=== PATIENT | female | born 1935 | race Caucasian/White ===

== ENCOUNTER → 2019-07-25 08:15 | Outpatient (BNVA) | payer MEDICARE, OTHER, SELFPAY | PROVIDERS: Family Provider Family Medicine; PCP Family Medicine; Visit Provider Internal Medicine Cardiovascular Disease | DX: E78.2 Mixed hyperlipidemia (principal) | CPT/HCPCS: 80061 ==

== ENCOUNTER → 2021-04-20 09:03 | Outpatient (BNVA) | payer MEDICARE, OTHER, SELFPAY | PROVIDERS: Family Provider Family Medicine; PCP Family Medicine; Visit Provider Internal Medicine Cardiovascular Disease | DX: E78.2 Mixed hyperlipidemia (principal); R06.02 Shortness of breath | CPT/HCPCS: 80048; 80061 ==

== ENCOUNTER → 2021-10-13 11:19 | Outpatient (BNVA) | payer MEDICARE, OTHER, SELFPAY | PROVIDERS: Family Provider Family Medicine; PCP Family Medicine; Visit Provider Internal Medicine Cardiovascular Disease | DX: E78.2 Mixed hyperlipidemia (principal); I65.23 Occlusion and stenosis of bilateral carotid arteries; I73.9 Peripheral vascular disease, unspecified; I10 Essential (primary) hypertension | CPT/HCPCS: 99214 ==

== ENCOUNTER 2021-11-03 09:51 | Outpatient (CLI) | payer MEDICARE, OTHER, SELFPAY ==
--- NOTE | 2021-11-03 10:15 | USCV_ITS ---
Scot Christianne Age: 86 Gender: F : 1935 Exam Date: 11/03/2021 10:54 Ordering Phys: Gabriela Palumbo MD ([email or web address]) Technologist: KARYN Exam Location: [facility] [place] Indication: Leg pain, PVD Risk Factors: Previous Vascular Surgery: RIGHT LEFT BP: 166.0 / 79.00 BP: 158.0/ 73.00 0 0 Waveform Velocity (cm/s) Velocity (cm/s) Waveform Biphasic 96.6 Iliac Prox 101.4 Biphasic Biphasic 66.1 Iliac Mid 102.5 Biphasic Biphasic 72.6 Iliac Distal 102.5 Biphasic Biphasic 87.1 FLUX CORE WELDER 82.7 Biphasic Biphasic 89.7 SFA Prox 92.6 Biphasic Biphasic 94.0 SFA Mid 88.2 Biphasic Biphasic 80.8 SFA Dist 57.8 Biphasic Biphasic 60.5 POP 58.5 Biphasic Biphasic 39.0 AUTOMOTIVE CUSTOMER EXPERIENCE ADVISOR 61.4 Biphasic Biphasic 62.9 DPA 62.1 Biphasic FINDINGS Unable to obtain ABIs due to pt c/o pain. Could not tolerate cuff inflation >180 CONCLUSIONS Features suggestive of extensive arterial sclerosis Could not obtain the ABIs since the patient would not tolerate high cuff pressure Consider TBI to further evaluate for PAD Dr Gabriela Palumbo MD [facility] (Electronically Signed) Final Date: 08 Nov 2021 21:06 S
== END 2021-11-03 09:52 | disposition home or self-care (01) ==
LOC: RAD 09:55
PROVIDERS: PCP Family Medicine; Visit Provider Internal Medicine Cardiovascular Disease
DX: I73.9 Peripheral vascular disease, unspecified (principal)
CPT/HCPCS: 93925

== ENCOUNTER → 2022-04-08 13:01 | Outpatient (BNVA) | payer MEDICARE, OTHER, SELFPAY | PROVIDERS: PCP Family Medicine; Visit Provider Internal Medicine Cardiovascular Disease | DX: I65.23 Occlusion and stenosis of bilateral carotid arteries (principal); R06.02 Shortness of breath; I36.1 Nonrheumatic tricuspid (valve) insufficiency; I35.0 Nonrheumatic aortic (valve) stenosis; I25.10 Atherosclerotic heart disease of native coronary artery without angina pectoris; I10 Essential (primary) hypertension; E78.2 Mixed hyperlipidemia; I48.11 Longstanding persistent atrial fibrillation | CPT/HCPCS: 36415; 80048; 83880; 99214 ==

== ENCOUNTER 2022-06-30 09:39 | Outpatient (CLI) | payer MEDICARE, OTHER, SELFPAY ==
--- NOTE | 2022-06-30 10:00 | USCV_ITS ---
Christianne Ellison Age: 86 Gender: F : 1935 Exam Date: 06/30/2022 09:46 Ordering Phys: Gabriela Palumbo MD ([email or web address]) Technologist: CT Exam Location: [facility] [place] Indication: hx of rt cea Risk Factors: Previous Vascular Surgery: Right Brachial BP: / Left Brachial BP: / Right Left Velocity (cm/s) Spectral Plaque Velocity (cm/s) Spectral Plaque Syst/Diast Broadening Syst/Diast Broadening 77.70/ 17.10 Prox CCA 62.70 / 13.80 52.60/ 18.40 Mid CCA 62.80 / 13.90 57.20/ 16.40 Distal CCA 61.20 / 16.60 160.50/31.80 Prox ICA 186.70/ 34.60 95.20/ 20.90 Mid ICA 86.80 / 17.70 117.60/26.40 Distal ICA 83.00 / 21.30 94.80 ECA 293.20 2.18 ICA/CCA 2.97 Antegrade Vertebral Antegrade 49.40/ 10.20 cm/s 70.90/ 16.20 cm/s Bi Subclavian Bi 105.7 131.3 0 0 FINDINGS Hx of Rt Cea. There is some minimal elevated velocities in Rt Prx Ica as well as left. Some areas in Left Prx Ica unable to doppler due to wll plq shadowing. F/U as indicated. Moderate heterogenous plaques at the right bifurcation and internal carotid artery Moderate to heavy heterogenous irregular plaques of the left bifurcation and proximal internal carotid artery Intimal thickening and minimal plaques involving carotid arteries bilaterally Elevated velocity in the left external carotid artery CONCLUSIONS Moderate heterogenous plaques at the right bifurcation and internal carotid artery with a Doppler features suggesting 50 to 69% stenosis Moderate to heavy heterogenous irregular plaques of the left bifurcation and proximal internal carotid artery with a Doppler features suggesting 50 to 69% stenosis. Intimal thickening and minimal plaques involving carotid arteries bilaterally Elevated velocity in the external carotid artery on the left side, suggesting hemodynamically significant stenosis. Compared to the study from 11/30/2016, there may not be significant change Dr Gabriela Palumbo MD [facility] (Electronically Signed) Final Date: 01 July 2022 16:26 S
== END 2022-06-30 09:40 | disposition home or self-care (01) ==
LOC: RAD 09:40
PROVIDERS: PCP Family Medicine; Visit Provider Internal Medicine Cardiovascular Disease
DX: I65.23 Occlusion and stenosis of bilateral carotid arteries (principal); I77.9 Disorder of arteries and arterioles, unspecified
CPT/HCPCS: 93880

== ENCOUNTER → 2022-10-12 11:17 | Outpatient (BNVA) | payer MEDICARE, OTHER, SELFPAY | PROVIDERS: PCP Family Medicine; Visit Provider Internal Medicine Cardiovascular Disease | DX: I48.11 Longstanding persistent atrial fibrillation (principal); I25.10 Atherosclerotic heart disease of native coronary artery without angina pectoris; I65.23 Occlusion and stenosis of bilateral carotid arteries; I36.1 Nonrheumatic tricuspid (valve) insufficiency; I35.0 Nonrheumatic aortic (valve) stenosis; M79.606 Pain in leg, unspecified; I10 Essential (primary) hypertension; E78.2 Mixed hyperlipidemia; Z95.1 Presence of aortocoronary bypass graft | CPT/HCPCS: 99214 ==

== ENCOUNTER 2022-12-07 14:10 | Outpatient (CLI) | payer MEDICARE, OTHER, SELFPAY ==
--- NOTE | 2022-12-07 14:30 | USCV_ITS ---
Christianne Ellison Age: 87 Gender: F : 1935 Exam Date: 12/07/2022 14:33 Ordering Phys: Gabriela Palumbo MD ([email or web address]) Technologist: [place] [facility] [place]: Aortic stenosis BP: 100 / 60 HR: 61 Rhythm: Sinus Technical Quality: Adequate MEASUREMENTS (Male / Female) Normal Values 2D ECHO LV Diastolic Diameter PLAX 4.1 cm 4.2 - 5.9 / 3.9 - 5.3 cm LV Systolic Diameter PLAX 2.6 cm IVS Diastolic Thickness 0.9 cm 0.6 - 1.0 / 0.6 - 0.9 cm IVS Systolic Thickness 1.8 cm LVPW Diastolic Thickness 1.1 cm 0.6 - 1.0 / 0.6 - 0.9 cm LVPW Systolic Thickness 1.2 cm LVOT Diameter 2.0 cm LV Ejection Fraction 2D Teich 65.8 % LV Ejection Fraction MOD 2C 75.9 % LV Ejection Fraction 2C AL 75.7 % LA Diameter 2.9 cm Aorta at Sinotubular Diameter 1.8 cm IVC Diameter 1.9 cm M-MODE Aortic Annulus Diameter 2.8 cm LA Ao Ratio MM 1.1 DOPPLER AV Peak Velocity 290.0 cm/s LVOT Peak Velocity 90.7 cm/s AV Area Cont Eq vti 1.0 cm squared AV Area Cont Eq pk 1.0 cm squared MV Area PHT 2.1 cm squared Mitral E to A Ratio 0.8 MV E' Velocity 78.0 cm/s Mitral E to MV E' Ratio 22.3 Mitral E to LV E' Lateral Ratio 16.7 Mitral E to LV E' Septal Ratio 33.4 TR Peak Velocity 316.3 cm/s TR Peak Gradient 40.0 mmHg TV Peak E Velocity 125.0 cm/s Right Atrial Pressure 3.0 mmHg Pulmonary Artery Systolic Pressu 43.0 mmHg FINDINGS Left Ventricle Normal left ventricular size, systolic function and increased wall thickness, with no regional wall motion abnormalities. Left ventricular ejection fraction is estimated at 55 %. Abnormal septal motion consistent with conduction abnormality. Grade II diastolic dysfunction, moderately elevated filling pressures. Right Ventricle Normal right ventricular size and systolic function. Right ventricular systolic pressure 43 mmHg. Right Atrium Moderately increased right atrial size. Left Atrium Moderately increased left atrial size. Increased left atrial pressure with septum bulging from left to right. Mitral Valve Severe mitral annular calcification. Moderately thickened mitral valve. Mild mitral valve stenosis with mean gradient of 4 mm Hg. No mitral valve regurgitation. Aortic Valve Thickened and calcified aortic valve. Moderate aortic valve stenosis, peak velocity 2.9 m/s, peak gradient 34 mm Hg, mean gradient 15.1 mmHg, OSMAN 1.1 cm squared. No aortic valve regurgitation. Tricuspid Valve Structurally normal tricuspid valve. No tricuspid valve stenosis. Ivephzhm-sd-fzlkww tricuspid valve regurgitation. Pulmonic Valve Structurally normal pulmonic valve. No pulmonary valve stenosis. Trace pulmonary valve regurgitation. Pericardium No pericardial effusion. Aorta Normal size aortic root and proximal ascending aorta. IVC Normal IVC dimension with >50% respiratory change of the inferior vena cava. CONCLUSIONS 1. Normal left ventricular size, systolic function and increased wall thickness, with no regional wall motion abnormalities. Left ventricular ejection fraction is estimated at 55 %. Grade II diastolic dysfunction, moderately elevated filling pressures. 2. Mild mitral valve stenosis with mean gradient of 4 mm Hg. 3. Moderate aortic valve stenosis, peak velocity 2.9 m/s, peak gradient 34 mm Hg, mean gradient 15.1 mmHg, OSMAN 1.1 cm squared. 4. Jienecod-rc-xosnxt tricuspid valve regurgitation. 5. When compared to study dated 02/06/2019, there is mild MS and moderate now. Kelsey Benitez MD (Electronically Signed) Final Date: 14 December 2022 18:18 S
== END 2022-12-07 14:11 | disposition home or self-care (01) ==
LOC: RAD 14:12
PROVIDERS: PCP Family Medicine; Visit Provider Internal Medicine Cardiovascular Disease
DX: R06.09 Other forms of dyspnea (principal); I05.0 Rheumatic mitral stenosis; I35.0 Nonrheumatic aortic (valve) stenosis; I07.1 Rheumatic tricuspid insufficiency
CPT/HCPCS: 93306; 99214

== ENCOUNTER 2022-12-17 07:29 | Outpatient (CLI) | payer MEDICARE, OTHER, SELFPAY ==
--- NOTE | 2022-12-29 15:57 | OP.DCCON ---
Reason for Visit: 64882 I10 Person Interviewed: Patient Medical History, Labs and Background: Christianne is in independent living and wants to know what she can do better in her diet because she doesn't want to take pills. Height: 5 ft 2 in Weight: 136 lb BMI: 25.8 kg/m2 IBW: 110 lbs Concerns and Goals: Christianne is not as concerned with her weight as she is with eating right - she wants to know what she can do so that she won't have to take pills other than her Vit D/B-6/ Stress B Sleep Hygiene: No issues Physical Activity: Christianne does water aerobics - when it is open and working - 3x/week and chair exercise. Other Feeding Issues: She takes 5 senna+ and prune juice which she said her MD recommended. Sometimes Christianne eats when she is bored. Food Allergies and Sensitivities: NKA Meds, Supplements & Other: Vit D/B-6/ Stress B 24 Hour Recall: Breakfast Time: 5:30-6 Fiber One or Great Grains/skim milk/decaf/coffeemate Snack Time: Lunch Time: noon 2 tacos from [employer], or grilled cheese + tomato + lettuce Snack Time: 2 peppermint patties, zero sugar or sun chips or whole grain club crackers Dinner Time: Cashew Chx plus rice and slaw salad, egg roll, soup Snack Time: Eating Out: She likes to eat out with her son or daughter who live here. Soda vs Milk vs Water: She drinks 2 x 20 ounce water bottles/day and sometimes 1 Sprite, zero calorie Additional Comments: Very pleasant and motivated woman! Recommendations: Assessment: Christianne's and she very much wants to take care of herself and a big part of that is no medicine - she wants to make healthy eating choices so she doesn't need pills, which is commendable and refreshing! No nutrition dx at this time r/t intake domain AEB Pt is barely into overweight and makes good choices and exercises. Intervention: We discussed continuing with water intake and exercise (which would also help with bowel regularity) and talked about smoothies that could mimic a meal if she wanted some variety. I commended her eating at least 3x/day and appropriate/modest snacks. We also discussed other strategies for when she was bored so that she could avoid mindless eating. I ended by praising her for all the healthy habits she has in her life. Monitoring and Evaluation: Christianne has my contact information if she would like to schedule a FU meeting. Coding Level of Care Code Nutrition/Individ/Init 60 min Time Spent (min) 60
== END 2022-12-17 07:30 | disposition home or self-care (01) ==
LOC: DIET 07:30
PROVIDERS: PCP Family Medicine; Visit Provider Family Medicine
DX: Z71.3 Dietary counseling and surveillance (principal); I10 Essential (primary) hypertension; Z68.25 Body mass index [BMI] 25.0-25.9, adult
CPT/HCPCS: 97802

== ENCOUNTER → 2023-05-04 13:15 | Outpatient (BNVA) | payer MEDICARE, OTHER, SELFPAY | PROVIDERS: PCP Family Medicine; Visit Provider Nurse Practitioner Family | DX: I25.10 Atherosclerotic heart disease of native coronary artery without angina pectoris (principal); I10 Essential (primary) hypertension; I35.0 Nonrheumatic aortic (valve) stenosis; I48.11 Longstanding persistent atrial fibrillation; L53.9 Erythematous condition, unspecified; M79.606 Pain in leg, unspecified | CPT/HCPCS: 99214 ==

== ENCOUNTER 2023-05-06 06:17 | Outpatient (CLI) | payer MEDICARE, OTHER, SELFPAY ==
--- NOTE | 2023-05-06 06:45 | USCV_ITS ---
Christianne Ellison Age: 87 Gender: F : 1935 Exam Date: 05/06/2023 06:27 Ordering Phys: Dolores العلي Technologist: Brandt Lopes Exam Location: [facility] [place] Indication: left leg pain PROCEDURES: Venous duplex imaging was performed in only the left lower extremity. The following venous structures were evaluated: common femoral vein, profunda vein, proximal portion of the greater saphenous vein, superficial femoral vein, and the popliteal vein. In addition, the posterior tibial and peroneal trunk were evaluated. Serial compression, augmentation maneuvers, and spectral Doppler flow evaluation were performed. Also scanned lateral left knee due to patient area of concern. FINDINGS: Normal 2-D Doppler and augmentation and compressibility throughout the lower extremity venous structures. Additional imaging through the proximal calf veins also reveals no thrombus. Limited evaluation of the greater saphenous vein is patent with no thrombus. No abnormality visualized in the patient's area of concern. Complex cystic mass with low level echos and no vascularity measuring 2.6x1.3x4.0 cm in the left popliteal fossa. CONCLUSIONS No DVT left lower extremity. Left popliteal fossa Norris's cyst. Dr. Pauly Crain DO (Electronically Signed) Final Date: 06 May 2023 08:12 S
== END 2023-05-06 06:18 | disposition home or self-care (01) ==
LOC: RAD 06:17
PROVIDERS: PCP Family Medicine; Visit Provider Nurse Practitioner Family
DX: M79.605 Pain in left leg (principal); M71.22 Synovial cyst of popliteal space [Baker], left knee
CPT/HCPCS: 93971

== ENCOUNTER → 2023-08-30 07:51 | Outpatient (BNVA) | payer MEDICARE, OTHER, SELFPAY | PROVIDERS: PCP Family Medicine; Visit Provider Nurse Practitioner Family | DX: L57.0 Actinic keratosis (principal); L57.8 Other skin changes due to chronic exposure to nonionizing radiation; L81.4 Other melanin hyperpigmentation | CPT/HCPCS: 17000; 99203 ==

== ENCOUNTER → 2023-10-24 14:06 | Outpatient (BNVA) | payer MEDICARE, OTHER, SELFPAY | PROVIDERS: PCP Family Medicine; Visit Provider Internal Medicine Cardiovascular Disease | DX: I25.10 Atherosclerotic heart disease of native coronary artery without angina pectoris (principal); I48.11 Longstanding persistent atrial fibrillation; Z79.01 Long term (current) use of anticoagulants; I65.23 Occlusion and stenosis of bilateral carotid arteries; I10 Essential (primary) hypertension; I35.0 Nonrheumatic aortic (valve) stenosis | CPT/HCPCS: 99214 ==

== ENCOUNTER 2023-11-02 09:43 | Outpatient (CLI) | payer MEDICARE, OTHER, SELFPAY ==
--- NOTE | 2023-11-02 10:00 | USCV_ITS ---
Scot Christianne Age: 88 Gender: F : 1935 Exam Date: 11/02/2023 09:54 Ordering Phys: Gabriela Palumbo MD ([email or web address]) Technologist: CT Exam Location: [facility] [place] Indication: stenosis Risk Factors: Previous Vascular Surgery: Right Brachial BP: / Left Brachial BP: / Right Left Velocity (cm/s) Spectral Plaque Velocity (cm/s) Spectral Plaque Syst/Diast Broadening Syst/Diast Broadening 75.00/ 18.00 Prox CCA 69.50 / 15.90 55.60/ 16.70 Mid CCA 66.90 / 15.70 63.40/ 16.70 Distal CCA 52.90 / 12.30 69.30/ 8.50 Prox ICA 250.50/ 42.70 142.80/21.40 Mid ICA 97.80 / 12.90 117.20/20.80 Distal ICA 69.50 / 15.00 123.60 ECA 69.30 2.30 ICA/CCA 4.70 Antegrade Vertebral Antegrade 49.20/ 6.50 cm/s 57.80/ 8.60 cm/s Bi Subclavian Bi 120.6 163.1 0 0 FINDINGS Comparison:. 07/01/22 Abnormal waveforms, bilateral, with increasing ICA velocity and irregular plaque. Marked left elevation of systolic velocity but no elevation of diastolic velocity. Antegrade vertebral arteries. CONCLUSIONS Left ICA stenosis 70-99%. Right ICA stenosis < 50%. As there has been a progression of plaque and stenosis since the prior exam recommend CTA carotid arteries. Significant irregular carotid plaque. Dr. Pauly Crain DO (Electronically Signed) Final Date: 02 November 2023 16:35 S
== END 2023-11-02 09:44 | disposition home or self-care (01) ==
LOC: RAD 09:44
PROVIDERS: PCP Family Medicine; Visit Provider Internal Medicine Cardiovascular Disease
DX: I65.23 Occlusion and stenosis of bilateral carotid arteries (principal); I77.9 Disorder of arteries and arterioles, unspecified
CPT/HCPCS: 93880

== ENCOUNTER → 2024-01-09 09:26 | Outpatient (BNVA) | payer MEDICARE, OTHER, SELFPAY | PROVIDERS: PCP Family Medicine; Visit Provider Nurse Practitioner Family | DX: D48.5 Neoplasm of uncertain behavior of skin (principal); L57.0 Actinic keratosis; D18.01 Hemangioma of skin and subcutaneous tissue; L57.8 Other skin changes due to chronic exposure to nonionizing radiation; L81.4 Other melanin hyperpigmentation | CPT/HCPCS: 11102; 17000; 99213 ==

== ENCOUNTER 2024-01-10 06:19 | Emergency (ER) | payer MEDICARE, OTHER, SELFPAY ==
[2024-01-10 06:25] VITALS: BP 179/111; PULSE 68; RESP 16; TEMP 36.6; O2SAT 100; BMI 26.4
[2024-01-10 06:29] VITALS: BP 177/68; PULSE 62; RESP 18; O2SAT 100
--- NOTE | 2024-01-10 06:32 | W.ED.GENADLT ---
HPI - General Adult General: Chief complaint: Extremity Injury, Upper Stated complaint: right arm lac bleeding from derm. appt yesterday Time Seen by Provider: 01/10/24 06:23 Source: patient Mode of arrival: ambulatory History of Present Illness: 88-year-old female who seen dermatology yesterday had a skin lesion removed from her right mid-forearm dorsal surface. She is on Eliquis because of atrial fibrillation has had continuous bleeding overnight. [facility] PFSH: Medical History Tricuspid insufficiency Aortic stenosis with trileaflet valve Carotid stenosis Coronary artery disease Hypertension Hyperlipidemia Atrial fibrillation Anticoagulated with apixaban Surgical History History of carotid endarterectomy Hx of CABG History of knee surgery Family History Mother CAD (coronary artery disease) Diabetes Stroke Brother Cancer Diabetes Other Hypertension Denies family history of Clotting disorder Dementia Chronic kidney disease (CKD) Suicide Anesthesia complication Bleeding disorder Lung disease Social History Smoking and tobacco/nicotine status: never used tobacco/nicotine Alcohol intake: never Substance/Drug Use: never Physical Exam Const: COMMON NORMALS: no acute distress GENERAL APPEARANCE: cooperative and comfortable ORIENTATION/CONSCIOUSNESS: Yes awake, Yes oriented to person, Yes oriented to place and Yes oriented to time HENMT: COMMON NORMALS: normocephalic, atraumatic and hearing grossly normal bilaterally HEAD & SCALP: normocephalic and atraumatic Neuro: SENSORIUM/ORIENTATION: Yes oriented to person, Yes oriented to place and Yes oriented to time Skin: OTHER: Examination of the skin there is a regular defect on the dorsum of the right forearm there is some oozing of blood from the lesion. Course Vital Signs: Vital signs: Vital Signs Temperature 97.8 F 01/10/24 06:25 Pulse Rate 67 01/10/24 08:51 Respiratory Rate 18 01/10/24 06:29 Blood Pressure 178/87 01/10/24 08:51 Pulse Oximetry 94 01/10/24 08:51 Oxygen Delivery Me thod Room Air 01/10/24 06:29 MDM - General Adult Medical Decision Making Bleeding controlled with direct pressure. After about 45 minutes her remove the bandage no active bleeding very scant oozing. Reapplied a pressure dressing not nearly as tight as the initial 1. Will discharge patient home have her hold her Eliquis x 2 days. I did contact Dr. Pereira just to let her know that her patient had been here. She will reach out to the patient. Patient advised to return if has further bleeding. Medical Records I reviewed the patient's medical records. Lab Data I reviewed the patient's lab results. 01/10/24 07:01 Laboratory Results WBC 6.46 10^3/uL (3.29-11.43) 01/10/24 07:01 RBC 3.92 10^6/uL (3.85-5.65) 01/10/24 07:01 Hgb 12.40 g/dL (11.27-16.99) 01/10/24 07:01 Hct 38.6 % (36-47) 01/10/24 07:01 MCV 98.5 fl (85-98) H 01/10/24 07:01 MCH 31.6 pg (27-33) 01/10/24 07:01 MCHC 32.1 g/dL (30-55) 01/10/24 07:01 RDW 12.9 % (12.1-15.1) 01/10/24 07:01 Plt Count 150 10^3/cmm (157-399) L 01/10/24 07:01 MPV 11.0 fL (7.4-10.4) H 01/10/24 07:01 Neut % (Auto) 47.1 % 01/10/24 07:01 Lymph % (Auto) 38.5 % 01/10/24 07:01 Ingham % (Auto) 10.7 % 01/10/24 07:01 Eos % (Auto) 2.6 % 01/10/24 07:01 Baso % (Auto) 0.8 % 01/10/24 07:01 Neut # (Auto) 3.04 10^3/uL (1.8-7.7) 01/10/24 07:01 Lymph # (Auto) 2.5 10^3/uL (0.8-4.8) 01/10/24 07:01 Ingham # (Auto) 0.7 10^3/uL (0.2-0.9) 01/10/24 07:01 Eos # (Auto) 0.2 10^3/uL (0.0-0.8) 01/10/24 07:01 Baso # (Auto) 0.1 10^3/uL (0.0-0.1) 01/10/24 07:01 Nucleated RBC % (auto) 0 % 01/10/24 07:01 Nucleated RBCs # 0.0 /100WBC 01/10/24 07:01 No radiology studies performed this visit Discharge Plan Discharge Patient Disposition: Home Clinical Impression: Medication side effect Atrial fibrillation Qualifiers: Atrial fibrillation type: longstanding persistent Qualified Code(s): I48.11 - Longstanding persistent atrial fibrillation Condition: Stable Prescriptions: New mupirocin 2 % ointment 1 applic topical DAILY Qty: 15 0RF No Action omega-3 fatty acids 1,000 mg capsule 1,000 mg PO DAILY coenzyme Q10 10 mg capsule 10 mg PO DAILY vitamin B complex Tablet 1 tab PO DAILY folic acid 1 mg tablet 1 mg PO DAILY senna 8.6 mg capsule 17.2 mg PO BID PRN nitroglycerin [Nitrostat] 0.4 mg tablet, sublingual 0.4 mg SUBLINGUAL Q5M PRN (Reason: chest pain) Qty: 30 3RF losartan 25 mg tablet 25 mg PO BID Qty: 60 5RF Rx Instructions: If blood pressure is less than 100 systolic hold dose aspirin [Adult Low Dose Aspirin] 81 mg tablet,delayed release (DR/EC) 81 mg PO DAILY Qty: 90 3RF furosemide 20 mg tablet 20 mg PO QAM PRN (Reason: edema) Qty: 90 3RF ezetimibe 10 mg tablet See Rx Instructions .ROUTE .COMPLEX Qty: 90 3RF Dose Instruction: TAKE ONE TABLET BY MOUTH DAILY Rx Instructions: TAKE ONE TABLET BY MOUTH DAILY amiodarone 200 mg tablet See Rx Instructions .ROUTE .COMPLEX Qty: 45 3RF Dose Instruction: TAKE 1/2 TABLET BY MOUTH DAILY Rx Instructions: TAKE 1/2 TABLET BY MOUTH DAILY metoprolol tartrate 25 mg tablet See Rx Instructions .ROUTE .COMPLEX Qty: 90 3RF Dose Instruction: TAKE one half TABLET BY MOUTH TWICE DAILY Rx Instructions: TAKE one half TABLET BY MOUTH TWICE DAILY potassium chloride 20 mEq tablet extended release See Rx Instructions .ROUTE .COMPLEX Qty: 90 3RF Dose Instruction: TAKE ONE TABLET BY MOUTH DAILY Rx Instructions: TAKE ONE TABLET BY MOUTH DAILY spironolactone 25 mg tablet 12.5 mg PO .COMPLEX Qty: 90 3RF Rx Instructions: 12.5 mg orally; rosuvastatin 40 mg tablet See Rx Instructions .ROUTE .COMPLEX Qty: 90 3RF Dose Instruction: TAKE ONE TABLET BY MOUTH EVERY DAY Rx Instructions: TAKE ONE TABLET BY MOUTH EVERY DAY Eliquis 5 mg tablet 5 mg PO BID Qty: 180 3RF Discharge Orders: Discharge ED (Routine); Ordered 01/10/24 Ordered By: Sloan David Referrals: Bryce Merritt MD [Primary Care Provider] - Discharge Diet: Usual diet Discharge Activity: Resume usual activity Patient Instructions: Opioid Safety, Pain Management Activity Restrictions/Additional Instructions: Thank you for choosing [facility] for your healthcare needs today. It is very important that you follow up as instructed or that you return to the Emergency Department should you have concerns or if your condition changes or worsens in any way. You were seen today for bleeding from the biopsy site. Recommend holding Eliquis for the next 2 days continue your aspirin. Resume your Eliquis in 2 days follow-up with dermatology as previously advised. Coding Level of Care Code ED [employer] Routeman for Stephanie Samuel
[2024-01-10 07:11] LABS: Basophils # 0.1 10^3/uL (0.0-0.1); Basophils % 0.8 %; Eosinophils # 0.2 10^3/uL (0.0-0.8); Eosinophils % 2.6 %; Hematocrit 38.6 % (36-47); Lymphocytes # 2.5 10^3/uL (0.8-4.8); Lymphocytes % 38.5 %; Mean Corpuscular HGB Conc 32.1 g/dL (30-55); Mean Corpuscular Hemoglobin 31.6 pg (27-33); Mean Corpuscular Volume 98.5 fl (85-98); Monocytes # 0.7 10^3/uL (0.2-0.9); Monocytes % 10.7 %; Neutrophils # 3.04 10^3/uL (1.8-7.7); Neutrophils % 47.1 %; Nucleated Red Blood Cells % 0 %; Platelet Count 150 10^3/cmm (157-399); Red Blood Count 3.92 10^6/uL (3.85-5.65); Red Cell Distribution Width 12.9 % (12.1-15.1); White Blood Count 6.46 10^3/uL (3.29-11.43)
[2024-01-10 08:51] VITALS: BP 178/87; PULSE 67; O2SAT 94
== END 2024-01-10 08:52 | disposition home or self-care (01) ==
PROVIDERS: Emergency Provider Family Medicine; PCP Family Medicine
DX: L76.21 Postprocedural hemorrhage of skin and subcutaneous tissue following a dermatologic procedure (principal); I48.11 Longstanding persistent atrial fibrillation; I10 Essential (primary) hypertension; I25.10 Atherosclerotic heart disease of native coronary artery without angina pectoris; E78.5 Hyperlipidemia, unspecified; Z95.1 Presence of aortocoronary bypass graft; Z79.01 Long term (current) use of anticoagulants; Z79.82 Long term (current) use of aspirin
CPT/HCPCS: 36415; 85025; 99214; 99283

== ENCOUNTER → 2024-02-01 08:15 | Outpatient (BNVA) | payer MEDICARE, OTHER, SELFPAY | PROVIDERS: PCP Family Medicine; Visit Provider Dermatology | DX: C44.612 Basal cell carcinoma of skin of right upper limb, including shoulder (principal) | CPT/HCPCS: 17262 ==

== ENCOUNTER → 2024-02-09 12:51 | Outpatient (BNVA) | payer MEDICARE, OTHER, SELFPAY | PROVIDERS: PCP Family Medicine; Visit Provider Nurse Practitioner Family | DX: S50.11XA Contusion of right forearm, initial encounter (principal); X58.XXXA Exposure to other specified factors, initial encounter; L57.8 Other skin changes due to chronic exposure to nonionizing radiation; L81.4 Other melanin hyperpigmentation; Z85.828 Personal history of other malignant neoplasm of skin | CPT/HCPCS: 99213 ==

== ENCOUNTER 2024-03-27 07:32 | Outpatient (CLI) | payer MEDICARE, OTHER, SELFPAY ==
--- NOTE | 2024-03-27 08:00 | CT_ITS ---
WS: [id number] CT ANGIOGRAM CAROTID ARTERIES HISTORY: bilat carotid stenosis TECHNIQUE: CT angiogram is performed of the carotid arteries. During arterial injection imaging is ob tained from the skull base to the aortic arch in 1.25 mm imaging. Coronal and sagittal reformats are submitted, MIP imaging also reviewed. Additional multiplanar reformats of the carotid arteries are lakhani bmitted. NASCET criteria utilized. All CT scans at [facility] use at least one of these dose optimization techniques: automated exposure control; mA and/or kV adjustment per patient size (includ es targeted exams where dose is matched to clinical indication); or iterative reconstruction. CONTRAST: Omnipaque 350; 100 mL IV. DLP: 192.92 mGy.cm COMPARISON: 04/18/2017, carotid ultrasound 11/02/2023 Right carotid: Common carotid artery: Arises normally from the innominate artery. Increasing plaque at the bifurcati on. Internal carotid artery: Increasing plaque and intimal thickening at the bifurcation. Mild dilatation of the proximal carotid artery. High-grade stenosis estimated near 60 to 70% at the bifurcation. Mil d progression of stenosis since the prior study. External carotid artery: Occluded with distal reconstitution. Left carotid: Common carotid artery: Arises normally from the aortic arch. No significant stenosis. Internal carotid artery: Large amount of calcified plaque with segmental thickening at the bifurcatio n. There is a very high-grade stenosis greater than 80%. Stenosis has progressed since the prior stud y. External carotid artery: Patent. Right vertebral artery: Patent. Small amount of plaque distally. Left vertebral artery: Patent with a small amount of calcified plaque distally. Arises normally from the left subclavian artery. Subclavian arteries: Mild narrowing origin LEFT subclavian artery. Upper thorax: Emphysema. Esophagus is dilated and fluid-filled. New finding since the prior study. At herosclerosis aorta. Normal size pulmonary artery. Thyroid gland: Small bilateral thyroid nodules. Osseous structures: Mild spondylitic changes in the mid cervical spine. C4 anterolisthesis by 3 mm. Skull base: Negative. CT/CT angio neck 21103 IMPRESSION: 1. LEFT cervical ICA stenosis estimated at 80% with mild progression since the prior study. 2. RIGHT cervical ICA stenosis estimated at 60 to 70% with mild progression si nce the prior study. 3. Known occluded RIGHT ECA. 4. New fluid distended esophagus. May be reflux disease. Consider distal esoph ageal stricture also is a possible etiology.
[2024-03-27 08:21] LABS: Blood Urea Nitrogen 8 mg/dL (8-23)
[2024-03-27] MEDS: iohexol 350 mg/mL 500 mL Btl (per mL) IV (09:10)
== END 2024-03-27 07:33 | disposition home or self-care (01) ==
LOC: RAD 07:32
PROVIDERS: PCP Family Medicine; Visit Provider Internal Medicine Cardiovascular Disease
DX: I65.23 Occlusion and stenosis of bilateral carotid arteries (principal); J43.9 Emphysema, unspecified; I70.0 Atherosclerosis of aorta; E04.2 Nontoxic multinodular goiter
CPT/HCPCS: 70498; 82565; 84520

== ENCOUNTER 2024-03-27 12:24 | Emergency (ER) | payer MEDICARE, OTHER, SELFPAY ==
[2024-03-27 12:32] VITALS: BP 139/57; PULSE 73; RESP 18; TEMP 36.8; O2SAT 98; BMI 26.2
[2024-03-27 12:34] VITALS: BP 169/89; PULSE 63; RESP 16; O2SAT 99
--- NOTE | 2024-03-27 12:54 | ECG_ITS ---
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 Measurements Intervals [place] Rate: 61 P: 59 WA: 171 QRS: 8 QRSD: 152 T: 75 QT: 487 QTc: 491 Interpretive Statements SINUS RHYTHM POSSIBLE LEFT ATRIAL ENLARGEMENT [-0.1mV P-WAVE IN V1/V2] LEFT BUNDLE BRANCH BLOCK [120+ ms QRS DURATION, 80+ ms Q/S IN V1/V2, 85+ ms R IN I/aVL/V5/V6] Compared to ECG 06/19/2018 19:41:36 Sinus bradycardia no longer present Electronically Signed On 03-27-2024 15:26:44 CDT by Tigre Paez M.D. [email or web address]
[2024-03-27 12:57] LABS: Basophils % 0.6 %; Eosinophils # 0.1 10^3/uL (0.0-0.8); Eosinophils % 0.9 %; Hematocrit 33.7 % (36-47); Lymphocytes # 2.1 10^3/uL (0.8-4.8); Lymphocytes % 30.9 %; Mean Corpuscular HGB Conc 33.2 g/dL (30-55); Mean Corpuscular Hemoglobin 31.9 pg (27-33); Mean Platelet Volume 10.1 fL (7.4-10.4); Monocytes # 0.5 10^3/uL (0.2-0.9); Monocytes % 6.8 %; Neutrophils # 4.07 10^3/uL (1.8-7.7); Neutrophils % 60.4 %; Nucleated Red Blood Cells % 0 %; Platelet Count 179 10^3/cmm (157-399); Red Blood Count 3.51 10^6/uL (3.85-5.65); White Blood Count 6.74 10^3/uL (3.29-11.43)
[2024-03-27 13:08] LABS: Erythrocyte Sedimentation Rate 10 mm/hr (0-15)
--- NOTE | 2024-03-27 13:09 | ED_ITS ---
HPI - Recheck/Abnormal Lab/Rx 2 General: Chief Complaint: Recheck/Abnormal Lab/Rx Stated Complaint: abn labs Time Seen by Provider: 03/27/24 12:33 History of Present Illness: 88-year-old woman with a history of almodovar tid stenosis, coronary artery disease, hypertension, hyperlipidemia and atrial fibrillation on Eliquis who presents to the emergency room after she had low blood pressure earlier today. She had a carotid ultrasound earlier in the day and has not heard results from that yet. She has been having issues with her right leg hurting. She is been having pain in her right larson and her knee and up her right lateral thigh. She has been seen multiple times at urgent care with this and has an MRI scheduled to evaluate this further. There is no obvious redness or swelling. No real pain in the joint. I do not suspect a joint infection. No fevers. No cough. No shortness of breath. No chest pain. No abdominal pain. No nausea or vomiting. No dysuria. Related Data Home Medications Medication Instructions Recorded Confirmed coenzyme Q10 10 mg capsule 10 mg PO DAILY 08/22/19 03/27/24 folic acid 1 mg tablet 1 mg PO DAILY 08/22/19 03/27/24 omega-3 fatty acids 1,000 mg 1,000 mg PO DAILY 08/22/19 03/27/24 capsule sennosides 8.6 mg capsule (senna) 17.2 mg PO BID PRN Constipation 08/22/19 03/27/24 vitamin B complex 1 tab PO DAILY 08/22/19 03/27/24 amiodarone 200 mg tablet 100 mg PO DAILY 03/27/24 03/27/24 cholecalciferol (vitamin D3) 50 50 mcg PO DAILY 03/27/24 03/27/24 mcg (2,000 unit) tablet (Vitamin D3) diclofenac sodium 1 % topical gel See Rx Instructions .Route .COMPLEX 03/27/24 03/27/24 ezetimibe 10 mg tablet 10 mg PO DAILY 03/27/24 03/27/24 metoprolol tartrate 25 mg tablet 12.5 mg PO DAILY 03/27/24 03/27/24 potassium chloride 20 mEq 20 meq PO DAILY 03/27/24 03/27/24 tablet,extended release rosuvastatin 40 mg tablet 40 mg PO DAILY 03/27/24 03/27/24 spironolactone 25 mg tablet 12.5 mg PO DAILY 03/27/24 03/27/24 tramadol 50 mg tablet See Rx Instructions .Route .COMPLEX 03/27/24 03/27/24 Previous Rx's Medication Instructions Recorded aspirin 81 mg tablet,delayed 81 mg PO DAILY #90 tabs 10/26/21 release (Adult Low Dose Aspirin) furosemide 20 mg tablet 20 mg PO QAM PRN edema #90 tabs 03/01/23 apixaban 5 mg tablet (Eliquis) 5 mg PO BID #180 tabs 12/09/23 losartan 25 mg tablet 25 mg PO BID #180 tabs 02/08/24 Allergies Allergy/AdvReac Type Severity Reaction Status Date / Time No Known Allergies Allergy Verified 01/10/24 10:36 Review of Systems 2 Narrative: Constitutional symptoms: Negative except as documented in HPI. Skin symptoms: Negative except as documented in HPI. Eye symptoms: Negative except as documented in HPI. ENMT symptoms: Negative except as documented in HPI. Respiratory symptoms: Negative except as documented in HPI. Cardiovascular symptoms: Negative except as documented in HPI. Gastrointestinal symptoms: Negative except as documented in HPI. Genitourinary symptoms: Negative except as documented in HPI. Musculoskeletal symptoms: Negative except as documented in HPI. Neurologic symptoms: Negative except as documented in HPI. Psychiatric symptoms: Negative except as documented in HPI. Endocrine symptoms: Negative except as documented in HPI. PFSH ED 2 PFSH: Medical History (Updated 03/27/24 @ 15:24 by Violeta Vargas MD) Tricuspid insufficiency Aortic stenosis with trileaflet valve Carotid stenosis Coronary artery disease Hypertension Hyperlipidemia Atrial fibrillation Anticoagulated with apixaban Surgical History History of carotid endarterectomy Hx of CABG History of knee surgery Family History Mother CAD (coronary artery disease) Diabetes Stroke Brother Cancer Diabetes Other Hypertension Denies family history of Clotting disorder Dementia Chronic kidney disease (CKD) Suicide Anesthesia complication Bleeding disorder Lung disease Social History Smoking and tobacco/nicotine status: never used tobacco/nicotine Alcohol intake: never Substance/Drug Use: never Physical Exam 2 Narrative: EXAM NARRATIVE: General: Alert, no acute distress. Skin: Warm, dry. Head: Normocephalic, atraumatic. Neck: Supple, trachea midline. Eye: Extraocular movements are intact. Ears, nose, mouth and throat: mucosa moist. Cardiovascular: Regular, Normal peripheral perfusion. Respiratory: Lungs are clear to auscultation, respirations are non-labored, breath sounds are equal, Symmetrical chest wall expansion. Gastrointestinal: Soft, Nontender, Non distended Musculoskeletal: Normal ROM, no deformity. Neurological: Alert and oriented, No focal neurological deficit observed. Psychiatric: Cooperative, appropriate mood & affect. Course 2 Vital Signs: Vital signs: Vital Signs Temperature 98.3 F 03/27/24 12:32 Pulse Rate 63 03/27/24 12:34 Respiratory Rate 16 03/27/24 12:34 Blood Pressure 169/89 03/27/24 12:34 Pulse Oximetry 99 03/27/24 12:34 Oxygen Delivery Me thod Room Air 03/27/24 12:34 MDM - Recheck/Abnormal Lab/Rx Medical Decision Making Medical decision making: Differential diagnosis including but not limited to and based on the above HPI, review of systems and physical exam: Orders placed to evaluate differential diagnosis based on the above differential, HPI and physical exam EKG: Time 1254. Rate 61. Normal sinus rhythm, No ST-T changes, no ectopy, left bundle branch block, This was reviewed and interpreted by myself the ER physician at 1256. No previous EKGs for comparison CTA of the neck done earlier today: 1. LEFT cervical ICA stenosis estimated at 80% with mild progression since the prior study. 2. RIGHT cervical ICA stenosis estimated at 60 to 70% with mild progression since the prior study. 3. Known occluded RIGHT ECA. Lab Review: Laboratory results were reviewed and interpreted by myself the emergency room physician. No leukocytosis. No anemia. ESR and CRP are not elevated which would mean that she does not have any sort of joint infection. No leukocytosis. No renal failure. Blood pressure has been normal here. I reviewed the patient's medical record. Reexamination: Patient remained stable. No increased work of breathing. No altered mental status. No focal motor deficits. Blood pressures remained stable. Globin elevated at discharge. Assessment and plan: Low blood pressure - Discharged home - Discussed findings and plan with patient. Answered any questions. - All laboratory values were reviewed and interpreted personally by myself, the ER physician - All imaging was reviewed and interpreted personally by myself, the ER physician. - Evaluation and treatment of this problem were appropriate in the emergency setting Lab Data 03/27/24 12:51 03/27/24 12:51 Laboratory Results WBC 6.74 10^3/uL (3.29-11.43) 03/27/24 12:51 RBC 3.51 10^6/uL (3.85-5.65) L 03/27/24 12:51 Hgb 11.20 g/dL (11.27-16.99) L 03/27/24 12:51 Hct 33.7 % (36-47) L 03/27/24 12:51 MCV 96.0 fl (85-98) 03/27/24 12:51 MCH 31.9 pg (27-33) 03/27/24 12:51 MCHC 33.2 g/dL (30-55) 03/27/24 12:51 RDW 13.0 % (12.1-15.1) 03/27/24 12:51 Plt Count 179 10^3/cmm (157-399) 03/27/24 12:51 MPV 10.1 fL (7.4-10.4) 03/27/24 12:51 Neut % (Auto) 60.4 % 03/27/24 12:51 Lymph % (Auto) 30.9 % 03/27/24 12:51 Real % (Auto) 6.8 % 03/27/24 12:51 Eos % (Auto) 0.9 % 03/27/24 12:51 Baso % (Auto) 0.6 % 03/27/24 12:51 Neut # (Auto) 4.07 10^3/uL (1.8-7.7) 03/27/24 12:51 Lymph # (Auto) 2.1 10^3/uL (0.8-4.8) 03/27/24 12:51 Real # (Auto) 0.5 10^3/uL (0.2-0.9) 03/27/24 12:51 Eos # (Auto) 0.1 10^3/uL (0.0-0.8) 03/27/24 12:51 Baso # (Auto) 0.0 10^3/uL (0.0-0.1) 03/27/24 12:51 Nucleated RBC % (auto) 0 % 03/27/24 12:51 Nucleated RBCs # 0.0 /100WBC 03/27/24 12:51 ESR 10 mm/hr (0-15) 03/27/24 12:51 Sodium 132 mmol/L (136-145) L 03/27/24 12:51 Potassium 4.6 mmol/L (3.5-5.1) 03/27/24 12:51 Chloride 100 mmol/L (98-107) 03/27/24 12:51 Carbon Dioxide 22 mmol/L (22-29) 03/27/24 12:51 Anion Gap 14.6 (5-19) 03/27/24 12:51 BUN 11 mg/dL (8-23) 03/27/24 12:51 Creatinine 0.9 mg/dL (0.5-0.9) 03/27/24 12:51 GFR Calculation Not Reportable 03/27/24 12:51 Glucose 137 mg/dL (65-115) H 03/27/24 12:51 Calculated Osmolality 276 mOsm/kg (285-295) L 03/27/24 12:51 Calcium 8.8 mg/dL (8.5-10.5) 03/27/24 12:51 Total Bilirubin 0.3 mg/dL (0.15-1.2) 03/27/24 12:51 AST 22 U/L (0-32) 03/27/24 12:51 ALT 13 U/L (0-33) 03/27/24 12:51 Alkaline Phosphatase 43 U/L (35-105) 03/27/24 12:51 C-Reactive Protein 3.0 mg/L (0.0-4.9) 03/27/24 12:51 Total Protein 6.0 g/dL (6.6-8.7) L 03/27/24 12:51 Albumin 3.6 g/dL (3.5-5.2) 03/27/24 12:51 Globulin 2.4 g/dL (1.3-4.6) 03/27/24 12:51 Urine Color Yellow (Yellow) 03/27/24 14:51 Urine Appearance Clear (CLEAR) 03/27/24 14:51 Urine pH 5 (5-7) 03/27/24 14:51 Ur Specific [place] 1.005 (1.005-1.030) 03/27/24 14:51 Urine Protein Neg (Negative) 03/27/24 14:51 Urine Glucose (UA) Norm (Normal) 03/27/24 14:51 Urine Ketones Negative (Negative) 03/27/24 14:51 Urine Blood Neg (Negative) 03/27/24 14:51 Urine Nitrate Negative (Negative) 03/27/24 14:51 Urine Bilirubin Neg (Negative) 03/27/24 14:51 Urine Urobilinogen Norm mg/dL (Negative) 03/27/24 14:51 Ur Leukocyte Esterase Negative (Negative) 03/27/24 14:51 Urine RBC None /hpf (0-2) 03/27/24 14:51 Urine WBC None /hpf (0-5) 03/27/24 14:51 Ur Squamous Epith Cells 0-4 /hpf (0-5) H 03/27/24 14:51 Amorphous Sediment Not Reportable 03/27/24 14:51 Urine Bacteria Trace /hpf (NONE) 03/27/24 14:51 All radiology interpretation(s) finalized by discharge Discharge Plan Discharge Patient Disposition: Home Clinical Impression: Low blood pressure Condition: Stable Prescriptions: No Action omega-3 fatty acids 1,000 mg capsule 1,000 mg PO DAILY coenzyme Q10 10 mg capsule 10 mg PO DAILY vitamin B complex Tablet 1 tab PO DAILY folic acid 1 mg tablet 1 mg PO DAILY senna 8.6 mg capsule 17.2 mg PO BID PRN (Reason: Constipation) aspirin [Adult Low Dose Aspirin] 81 mg tablet,delayed release (DR/EC) 81 mg PO DAILY Qty: 90 3RF furosemide 20 mg tablet 20 mg PO QAM PRN (Reason: edema) Qty: 90 3RF Eliquis 5 mg tablet 5 mg PO BID Qty: 180 3RF losartan 25 mg tablet 25 mg PO BID Qty: 180 3RF Rx Instructions: If blood pressure is less than 100 systolic hold dose tramadol 50 mg tablet See Rx Instructions .ROUTE .COMPLEX Rx Instructions: TAKE 1 TABLET BY MOUTH EVERY 6 HOURS WITH TYLENOL NEEDED. diclofenac sodium 1 % gel See Rx Instructions .ROUTE .COMPLEX Rx Instructions: Apply FOUR grams TO affected area topically FOUR TIMES DAILY as needed. Vitamin D3 50 mcg (2,000 unit) Tablet 50 mcg PO DAILY amiodarone 200 mg tablet 100 mg PO DAILY spironolactone 25 mg tablet 12.5 mg PO DAILY ezetimibe 10 mg tablet 10 mg PO DAILY rosuvastatin 40 mg tablet 40 mg PO DAILY metoprolol tartrate 25 mg tablet 12.5 mg PO DAILY potassium chloride 20 mEq tablet extended release 20 meq PO DAILY Discharge Orders: Discharge ED (Routine); Ordered 03/27/24 Ordered By: Violeta Vargas Referrals: Bryce Merritt MD [Primary Care Provider] - Discharge Diet: Usual diet Discharge Activity: Increase activity as tolerated Patient Instructions: Opioid Safety, Pain Management Activity Restrictions/Additional Instructions: Thank you for choosing [facility] for your healthcare needs today. Please realize this is an emergency room and that we are providing you with a medical screening exam and this may not be complete and all inclusive of all the testing and or work up that you may need to determine your ailment or severity of your illness. You have been screened and evaluated and felt safe for discharge. Health conditions do change or evolve sometimes and as such it is important that you follow up with your Primary Doctor to be re checked, 3-5 days is a general good time frame for follow up. You are always welcome to return to the ED for re assessment if your symptoms are worsening or you have new concerns Coding Level of Care Code ED Timber Incisor Operator for Stephanie Samuel
[2024-03-27 13:18] LABS: Alanine Aminotransferase 13 U/L (0-33); Albumin Level 3.6 g/dL (3.5-5.2); Alkaline Phosphatase 43 U/L (35-105); Anion Gap 14.6 (5-19); Aspartate Amino Transferase 22 U/L (0-32); Blood Urea Nitrogen 11 mg/dL (8-23); Calcium 8.8 mg/dL (8.5-10.5); Carbon Dioxide 22 mmol/L (22-29); Chloride 100 mmol/L (98-107); Creatinine Clr Calc Pharmacy 37.4719; Globulin 2.4 g/dL (1.3-4.6); Glucose 137 mg/dL (65-115); Osmolality Calculated 276 mOsm/kg (285-295); Potassium 4.6 mmol/L (3.5-5.1); Sodium 132 mmol/L (136-145); Total Bilirubin 0.3 mg/dL (0.15-1.2)
--- NOTE | 2024-03-27 14:09 | PC.PHAR ---
Pt brought her med list with her but verified all of them, also.
[2024-03-27 15:12] LABS: Bacteria Urine TRACE /hpf; Bilirubin Urine Neg (Negative); Blood Urine Neg (Negative); Glucose Urine UA Norm (Normal); Ketones Urine Negative (Negative); Leukocyte Esterase Urine Negative (Negative); Nitrate Urine Negative (Negative); Protein Urine Neg (Negative); Specific Gravity, Urine 1.005 (1.005-1.030); Squamous Epithelial Cell Urine 0-4 /hpf (0-5); Urine Appearance Clear (CLEAR); Urine Color Yellow (Yellow); Urobilinogen Urine Norm (Negative); pH Urine 5 (5-7)
[2024-03-27 17:10] VITALS: BP 160/70; PULSE 70; O2SAT 98
== END 2024-03-27 16:33 | disposition home or self-care (01) ==
PROVIDERS: Emergency Provider Emergency Medicine; PCP Family Medicine
DX: I95.9 Hypotension, unspecified (principal); Z79.82 Long term (current) use of aspirin; Z79.01 Long term (current) use of anticoagulants; I44.7 Left bundle-branch block, unspecified; I25.10 Atherosclerotic heart disease of native coronary artery without angina pectoris; I10 Essential (primary) hypertension; E78.5 Hyperlipidemia, unspecified; Z95.1 Presence of aortocoronary bypass graft
CPT/HCPCS: 36415; 80053; 81001; 85025; 85651; 86140; 93005; 99284

== ENCOUNTER 2024-04-02 10:40 | Outpatient (CLI) | payer MEDICARE, OTHER, SELFPAY ==
--- NOTE | 2024-04-02 10:42 | MR_ITS ---
WS: [id number] MRI RIGHT KNEE HISTORY: R KNEE PAIN COMPARISON: Radiograph 02/27/2024 Anterior cruciate ligament: Increased heterogeneous signal throughout the ACL. There is fluid in the central ACL extending along the length of the ligament. Majority of the ACL is intact. A small tear r esulting in interstitial fluid is likely. Posterior cruciate ligament: Intact. Complex fluid collection posterior to the PCL measures 8 x 31 x 10 mm. This is probably a small ganglion associated with the PCL. Medial collateral ligament: Fluid on both sides of the MCL but no tear. Posterior lateral corner structures: Fluid and increased signal along the fibular collateral ligament . No definite tear is identified. Medial menisci: Horizontal tear posterior horn medial meniscus with extension to the inferior articul ar surface. Lateral meniscus: No identifiable anterior horn. The anterior horn appears to be extruded from the simone int space. Posterior horn is also partially extruded. Posterior meniscus extends inferior to the join t line. Extensor mechanism: Distal quadriceps tendon and patellar tendons are intact. Fluid and soft tissue: Small suprapatellar joint effusion with loose bodies. There is mild diffuse so ft tissue edema. Moderate size Norris's cyst. Osseous and articular structures: Patellofemoral compartment: Moderate narrowing patellofemoral joint space with loss of cartilage. No marrow edema. Medial compartment: Moderate narrowing the medial compartment. Moderate diffuse chondromalacia. No ma rrow edema. Lateral compartment: Severe narrowing of the lateral compartment with complete loss of cartilage. Mar ginal osteophytes. Significant marrow edema along the lateral tibial plateau. MR/MR knee RT wo con* [id number] IMPRESSION: 1. Severe internal derangement lateral compartment with loss of cartilage, facundo nt space narrowing and extruded meniscus. Both the anterior and posterior horns are extruded from the joint line. 2. Fluid extending along the course of the mid ACL. This can be seen with an i nterstitial tear. Majority of the ACL is intact. 3. Ganglion posterior to the PCL. 4. Horizontal tear posterior horn medial meniscus. 5. Small suprapatellar joint effusion with loose bodies. 6. Moderate-sized Norris's cyst. 7. Moderate patellofemoral joint space narrowing. 8. Moderate narrowing the medial compartment with diffuse chondromalacia.
== END 2024-04-02 10:41 | disposition home or self-care (01) ==
LOC: RAD 10:41
PROVIDERS: PCP Family Medicine; Visit Provider Nurse Practitioner Family
DX: M23.211 Derangement of anterior horn of medial meniscus due to old tear or injury, right knee (principal); M23.221 Derangement of posterior horn of medial meniscus due to old tear or injury, right knee; S83.511A Sprain of anterior cruciate ligament of right knee, initial encounter; X58.XXXA Exposure to other specified factors, initial encounter; M67.461 Ganglion, right knee; M71.21 Synovial cyst of popliteal space [Baker], right knee; M22.2X1 Patellofemoral disorders, right knee; M94.261 Chondromalacia, right knee
CPT/HCPCS: 73721

== ENCOUNTER → 2024-04-11 14:51 | Outpatient (BNVA) | payer MEDICARE, OTHER, SELFPAY | PROVIDERS: PCP Family Medicine; Visit Provider Specialist | DX: M17.11 Unilateral primary osteoarthritis, right knee (principal) | CPT/HCPCS: 73560; 73565; 99204 ==

== ENCOUNTER → 2024-04-24 15:25 | Outpatient (BNVA) | payer MEDICARE, OTHER, SELFPAY | PROVIDERS: PCP Family Medicine; Visit Provider Internal Medicine Cardiovascular Disease | DX: R06.02 Shortness of breath (principal) | CPT/HCPCS: 36415; 80048; 83880; 99214 ==

== ENCOUNTER → 2024-05-03 13:06 | Outpatient (BNVA) | payer MEDICARE, OTHER, SELFPAY | PROVIDERS: PCP Family Medicine; Visit Provider Nurse Practitioner Family | DX: L57.8 Other skin changes due to chronic exposure to nonionizing radiation (principal); L81.4 Other melanin hyperpigmentation; D18.01 Hemangioma of skin and subcutaneous tissue; Z85.828 Personal history of other malignant neoplasm of skin | CPT/HCPCS: 99213 ==

== ENCOUNTER 2024-05-21 11:45 | Outpatient (CLI) | payer MEDICARE, OTHER, SELFPAY ==
--- NOTE | 2024-05-21 12:00 | USCV_ITS ---
Christianne Ellison Age: 88 Gender: F : 1935 Exam Date: 05/21/2024 11:56 Ordering Phys: Gabriela Palumbo MD ([email or web address]) Technologist: CT Exam Location: [facility] [place] Indication: chf BP: 112 / 50 HR: 62 Rhythm: Sinus Technical Quality: Adequate MEASUREMENTS (Male / Female) Normal Values 2D ECHO LVOT Diameter 2.0 cm LV Ejection Fraction MOD 4C 57.6 % LV Ejection Fraction MOD 2C 51.0 % LV Ejection Fraction 2C AL 54.2 % LA Diameter 4.3 cm RA Systolic Volume 4C AL 51.5 ml RA Systolic Volume 4C MOD 51.1 ml LA Sys Volume AL 73.3 cm cubed LA Sys Volume Index AL 44.8 cm cubed/m squared Aorta at Sinotubular Diameter 1.9 cm IVC Diameter 1.4 cm M-MODE LA Ao Ratio MM 2.3 AV Cusp Separation MM 0.9 cm DOPPLER AV Peak Velocity 323.0 cm/s LVOT Peak Velocity 87.0 cm/s AV Area Cont Eq vti 1.0 cm squared AV Area Cont Eq pk 0.9 cm squared MV Peak Velocity 154.0 cm/s MV Area PHT 2.7 cm squared Mitral E to A Ratio 0.9 TR Peak Velocity 296.0 cm/s TR Peak Gradient 35.0 mmHg TR Mean Velocity 189.0 cm/s TR Mean Gradient 16.6 mmHg TR Velocity Time Integral 73.7 cm TV Peak E Velocity 95.0 cm/s Right Atrial Pressure 3.0 mmHg Pulmonary Artery Systolic Pressu 38.0 mmHg PV Peak Velocity 104.0 cm/s FINDINGS Left Ventricle Normal LV size with an ejection fraction of 55%. Relative hypokinesia of the septum and the anteroseptal segments.abnormal septal motion consistent with conduction abnormality. Moderate left ventricular hypertrophy. Grade I/IV diastolic dysfunction (abnormal relaxation filling pattern), normal to mildly elevated filling pressures. Right Ventricle Normal right ventricular size and systolic function. Right Atrium Mildly increased right atrial size. Left Atrium severely increased left atrial volume 45 ml/m squared. Mitral Valve Moderate mitral annular calcification. Aortic Valve Moderately severe aortic valve stenosis, mean gradient 20.9 mmHg, OSMAN 0.99 cm squared. Peak velocity of 3.23 m/s. Peak gradient of 42 and a mean gradient of 21 mmHg. Tricuspid Valve Moderate tricuspid valve regurgitation. Estimated pulmonary artery peak systolic pressure 38 mmHg Pulmonic Valve No gross abnormalities noted Pericardium No pericardial effusion. Aorta Normal aortic annulus size. IVC Normal inferior vena cava. CONCLUSIONS Normal LV size with an ejection fraction of 55%. Abnormal septal motion consistent with conduction abnormality. Moderate left ventricular hypertrophy. Grade I/IV diastolic dysfunction (abnormal relaxation filling pattern), normal to mildly elevated filling pressures. Mildly increased right atrial size. Severely increased left atrial volume 45 ml/m squared. Moderate mitral annular calcification. Moderately severe aortic valve stenosis, mean gradient 20.9 mmHg, OSMAN 0.99 cm squared. Peak velocity of 3.23 m/s. Peak gradient of 42 and a mean gradient of 21 mmHg. Moderate tricuspid valve regurgitation. Estimated pulmonary artery peak systolic pressure 38 mmHg. There is no pericardial effusion. There are no intracardiac masses. Compared to the study from 12/07/2022 there is slight worsening of the aortic valve stenosis Dr Gabriela Palumbo MD FAC (Electronically Signed) Final Date: 22 May 2024 08:36 S
== END 2024-05-21 11:46 | disposition home or self-care (01) ==
LOC: RAD 11:45
PROVIDERS: PCP Family Medicine; Visit Provider Internal Medicine Cardiovascular Disease
DX: I35.2 Nonrheumatic aortic (valve) stenosis with insufficiency (principal); I51.0 Cardiac septal defect, acquired; I50.30 Unspecified diastolic (congestive) heart failure; I34.81 Nonrheumatic mitral (valve) annulus calcification; I36.1 Nonrheumatic tricuspid (valve) insufficiency; M17.0 Bilateral primary osteoarthritis of knee; R06.09 Other forms of dyspnea; M25.762 Osteophyte, left knee
CPT/HCPCS: 73560; 73565; 93306

== ENCOUNTER → 2024-06-15 10:22 | Outpatient (BNVA) | payer MEDICARE, OTHER, SELFPAY | PROVIDERS: PCP Family Medicine; Visit Provider Specialist | DX: M17.0 Bilateral primary osteoarthritis of knee; Z71.89 Other specified counseling | CPT/HCPCS: 20610; J1100; J2795; J3301 ==

== ENCOUNTER → 2024-07-18 10:08 | Outpatient (BNVA) | payer MEDICARE, OTHER, SELFPAY | PROVIDERS: PCP Family Medicine; Visit Provider Nurse Practitioner Family | DX: L57.8 Other skin changes due to chronic exposure to nonionizing radiation (principal); L81.4 Other melanin hyperpigmentation; D18.01 Hemangioma of skin and subcutaneous tissue; Z08 Encounter for follow-up examination after completed treatment for malignant neoplasm; Z85.828 Personal history of other malignant neoplasm of skin | CPT/HCPCS: 17000; 99213 ==

== ENCOUNTER → 2024-07-23 10:30 | Outpatient (BNVA) | payer MEDICARE, OTHER, SELFPAY | PROVIDERS: PCP Family Medicine; Visit Provider Nurse Practitioner Family | DX: I25.10 Atherosclerotic heart disease of native coronary artery without angina pectoris (principal); I48.11 Longstanding persistent atrial fibrillation; R06.02 Shortness of breath; I65.23 Occlusion and stenosis of bilateral carotid arteries; I35.0 Nonrheumatic aortic (valve) stenosis; E78.2 Mixed hyperlipidemia; I10 Essential (primary) hypertension; I95.9 Hypotension, unspecified; Z79.01 Long term (current) use of anticoagulants; Z79.82 Long term (current) use of aspirin | CPT/HCPCS: 99213 ==

== ENCOUNTER → 2024-09-21 10:22 | Outpatient (BNVA) | payer MEDICARE, OTHER, SELFPAY | PROVIDERS: PCP Family Medicine; Visit Provider Specialist | DX: M17.0 Bilateral primary osteoarthritis of knee (principal); Z71.89 Other specified counseling | CPT/HCPCS: 20610; J1100; J2795; J3301; J9999 ==

== ENCOUNTER → 2024-11-15 11:28 | Outpatient (BNVA) | payer MEDICARE, OTHER, SELFPAY | PROVIDERS: PCP Family Medicine; Visit Provider Internal Medicine Cardiovascular Disease | DX: I25.10 Atherosclerotic heart disease of native coronary artery without angina pectoris (principal); I48.11 Longstanding persistent atrial fibrillation; Z79.01 Long term (current) use of anticoagulants; Z79.82 Long term (current) use of aspirin; I65.23 Occlusion and stenosis of bilateral carotid arteries; I35.0 Nonrheumatic aortic (valve) stenosis; E78.2 Mixed hyperlipidemia; I10 Essential (primary) hypertension; R06.02 Shortness of breath; Z95.1 Presence of aortocoronary bypass graft | CPT/HCPCS: 99214 ==

== ENCOUNTER → 2024-12-04 13:55 | Outpatient (BNVA) | payer MEDICARE, OTHER, SELFPAY | PROVIDERS: PCP Family Medicine; Visit Provider Student in an Organized Health Care Education/Training Program | DX: M25.561 Pain in right knee (principal); M25.562 Pain in left knee; M17.0 Bilateral primary osteoarthritis of knee | CPT/HCPCS: 73560; 73565 ==

== ENCOUNTER 2024-12-04 14:53 | Outpatient (CLI) | payer MEDICARE, OTHER, SELFPAY | END 2024-12-04 14:54 | disposition home or self-care (01) | LOC: SPT 14:54 | PROVIDERS: PCP Family Medicine; Visit Provider Student in an Organized Health Care Education/Training Program | DX: Z46.89 Encounter for fitting and adjustment of other specified devices (principal); M17.0 Bilateral primary osteoarthritis of knee | CPT/HCPCS: L1851 ==

== ENCOUNTER → 2024-12-28 10:26 | Outpatient (BNVA) | payer MEDICARE, OTHER, SELFPAY | PROVIDERS: PCP Family Medicine; Visit Provider Specialist | DX: M17.0 Bilateral primary osteoarthritis of knee (principal) | CPT/HCPCS: 20610; J1100; J2795; J3301; J9999 ==

== ENCOUNTER → 2025-01-16 13:31 | Outpatient (BNVA) | payer MEDICARE, OTHER, SELFPAY | PROVIDERS: PCP Family Medicine; Visit Provider Nurse Practitioner Family | DX: L81.4 Other melanin hyperpigmentation (principal); L57.8 Other skin changes due to chronic exposure to nonionizing radiation; D22.39 Melanocytic nevi of other parts of face; L82.1 Other seborrheic keratosis; Z08 Encounter for follow-up examination after completed treatment for malignant neoplasm; Z85.828 Personal history of other malignant neoplasm of skin; L57.0 Actinic keratosis | CPT/HCPCS: 17000; 99213 ==

== ENCOUNTER 2025-01-28 20:29 | Emergency (ER) | payer MEDICARE, OTHER, SELFPAY ==
[2025-01-28 20:36] VITALS: BP 195/72; PULSE 61; RESP 16; TEMP 36.5; O2SAT 98; BMI 24.5
--- OUTSIDE RECORDS SUMMARY | 2025-01-28 20:39 | XMS_ITS | Encounter Summary ---
Author Organization [facility] Address [address] [place] [address] Care Team Providers Care Asw/Asuw Tactical Air Controller Name Role Phone Unavailable Primary Care Provider Unavailabl e Encounter Details Date Type Department Care Team (Latest Contact Info) Description 10/17/2000 Outpatient Historical [facility] Stanislav Simon MD NO ADDRESS ON FILE Other symptoms involving digestive system(787.99) (Primary Dx); Rectal/anal hemorrhage Social History Tobacco Use Types Packs/Day Years Used Date Smoking Tobacco: Never Assessed Comments Unknown Sex and Gender Information Value Date Recorded Sex Assigned at Not on file 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
--- OUTSIDE RECORDS SUMMARY | 2025-01-28 20:39 | XMS_ITS | Clinical Summary ---
Author Organization [facility] Address [address] 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
--- OUTSIDE RECORDS SUMMARY | 2025-01-28 20:39 | XMS_ITS | Data Portability ---
Author Organization [facility] Driss Garcia [facility] Address [address] [address] Care Team Providers Care Video Games Mechanic Name Role Phone KALEB MERRITT Primary Care Provider [phone] Assessment No assessment recorded. Plan of Treatment Reminders Order Date Submit Date Provider Last Modified By Organization Details Last Modified Time Details Appointments RECHECK 15 2024 02:15P Yakov Merritt MD Not available Not available Not available Lab urinalysi s, dipstick 2024 025 [facility] ([facility]), [address] [place] [address], [address], 12/12/2024 10:32:11 culture, urine 2024 025 [facility], [address] [place] [address], [address], [place], [address], 12/04/2024 09:13:25 urinalysi s, dipstick [address] ([facility]), [address] [place], [address], 12/01/2024 18:48:05 culture, urine 2024 025 [facility], [address] [place] [address], [address], [place], [address], 11/23/2024 12:32:22 urinalysi s, dipstick 2024 [facility] ([facility]), [address] [place], [address], 11/21/2024 09:56:17 Referral None recorded. Procedures None recorded. Surgeries None recorded. Imaging None recorded. Medication Orders Cipro 250 mg tablet 2024 [id number], [address], [place], [id number], 12/12/2024 10:27:46 nitrofura ntoin monohydra te/macroc rystals 100 mg capsule 2024 [facility] [place], [address] [place], [address], 11/30/2024 18:16:59 Patient TargetsNo targets recorded. Patient InstructionsNo instructions recorded. Reason for Referral None Reported. Results Created Date Observation Date Name Description Value Unit Range Abnormal Flag Note LastModifiedBy Organization Detail LastModifiedTime 12/05/1912/04/2024 CULTU RE, URINE , ROUTI NE culture, urine, routine SEE NOTE abnormal CULTU RE, URINE , ROUTI NE Micro Numbe r: [id number] Test Statu s: Final Speci men Sourc e: Not given Speci men Quali ty: Adequ ate Resul t: Great er than 100,0 00 CFU/m L of Esche gurwinder a coli Comme nt: No colle ction date was provi ded. The speci men is gener ally defin ed as stabl e up to 48 hours . The resul t(s) need( s) to be inter prete d cauti ously . Clini copat holog ic corre latio n is requi red. Repea t testi ng is recom fallon d as clini shelly indic ated. Custo giacomo Servi ce is avail able with quest ions or comme nts based on your area of inter est: [phone] ONEIDA T ([phone]) E.col i ----- ----- ----- - INT TRACY AMOX/ CLAVU LANAT E S 4 AMP/S ULBAC WEBB S <=2 CEFAZ MITESH NR <=4 2 CEFEP ROGER S <=0.1 2 CEFTA ZIDIM E S <=1 CEFTR IAXON E S <=0.2 5 CIPRO FLOXA IDALMIS S <=0.0 6 GENTA MICIN S <=1 IMIPE NEM S <=0.2 5 LEVOF LOXAC IN S <=0.1 2 MEROP ENEM S <=0.2 5 NITRO FURAN TOIN S <=16 PIP/T AZOBA CTAM S <=4 TRIME THOPR IM/GALAVIZ LFA S <=20 S = Susce ptibl e I = Inter media te R = Resis tant NS = Not susce ptibl e SDD = Susce ptibl e Dose Depen dent * = Not Teste d NR = Not Repor gaby NN = See Thera py Comme nts THERA PY COMME NTS Note 1: For infec tions other than uncom plica gaby UTI cause d by E. coli, K. pneum oniae or P. mirab ilis: Cefaz mitesh is resis tant if TRACY > or = 8 mcg/m L. (Dist ingui shing susce ptibl e versu s inter media te for isola adalberto with TRACY < or = 4 mcg/m L requi res addit ional testi ng.) Note 2: For uncom plica gaby UTI cause d by E. coli, K. pneum oniae or P. mirab ilis: Cefaz mitesh is susce ptibl e if TRACY <32 mcg/m L and predi cts susce ptibl e to the oral agent s cefac kenn, cefdi darnell, cefpo doxim e, cefpr ozil, cefur oxime , cepha lexin and lorac arbef . NO COLLE CTION DATE RECEI HERNANDEZ. WE HAVE USED THE DATE THE SPECI MEN WAS RECEI HERNANDEZ BY THIS LABOR ATORY THE COLLE CTION DATE. IF THIS IS INCOR RECT, PLEAS E CONTA CT CLIEN T SERVI [place]. PHONE NUMBE R: [phone] Not Available [employer] [facility] [address] [facility] [facility], [place], [address], 12/04/2024 09:13:25 11/22/1911/23/2024 CULTU RE, URINE , ROUTI NE culture, urine, routine SEE NOTE abnormal CULTU RE, URINE , ROUTI NE Micro Numbe r: [id number] Test Statu s: Final Speci men Sourc e: Urine , clean catch Speci men Quali ty: Adequ ate Resul t: Great er than 100,0 00 CFU/m L of Esche gurwinder a coli E.col i ----- ----- ----- - INT TRACY AMOX/ CLAVU LANAT E S 4 AMP/S ULBAC WEBB S <=2 CEFAZ MITESH NR <=4 2 CEFEP ROGER S <=0.1 2 CEFTA ZIDIM E S <=1 CEFTR IAXON E S <=0.2 5 CIPRO FLOXA IDALMIS S <=0.0 6 GENTA MICIN S <=1 IMIPE NEM S <=0.2 5 LEVOF LOXAC IN S <=0.1 2 MEROP ENEM S <=0.2 5 NITRO FURAN TOIN S <=16 PIP/T AZOBA CTAM S <=4 TRIME THOPR IM/GALAVIZ LFA S <=20 S = Susce ptibl e I = Inter media te R = Resis tant NS = Not susce ptibl e SDD = Susce ptibl e Dose Depen dent * = Not Teste d NR = Not Repor gaby NN = See Thera py Comme nts THERA PY COMME NTS Note 1: For infec tions other than uncom plica gaby UTI cause d by E. coli, K. pneum oniae or P. mirab ilis: Cefaz mitesh is resis tant if TRACY > or = 8 mcg/m L. (Dist ingui shing susce ptibl e versu s inter media te for isola adalberto with TRACY < or = 4 mcg/m L requi res addit ional testi ng.) Note 2: For uncom plica gaby UTI cause d by E. coli, K. pneum oniae or P. mirab ilis: Cefaz mitesh is susce ptibl e if TRACY <32 mcg/m L and predi cts susce ptibl e to the oral agent s cefac kenn, cefdi darnell, cefpo doxim e, cefpr ozil, cefur oxime , cepha lexin and lorac arbef . Not Available [employer] [facility] [address] [place], [address], 11/23/2024 12:32:22 11/22/1911/21/2024 urina lysis , dipst ick Leukocytes Large Not Available [facility] ( [facility] [address] [place], [address], 11/21/2024 09:43:27 11/22/1911/21/2024 urina lysis , dipst ick Nitrite negati ve Not Available [facility] ([facility]) [address] [place] [address], [address], 11/21/2024 09:43:27 11/22/19 25 11/21/2024 urina lysis , dipst ick Urobilinogen .2 Not Available [facility] ([facility]) [address] [place], [address], 11/21/2024 09:43:27 11/22/19 25 11/21/2024 urina lysis , dipst ick Protein 100 Not Available [facility] ([facility]) [address] [place], [address], 11/21/2024 09:43:27 11/22/1911/21/2024 urina lysis , dipst ick pH 7.0 Not Available [facility] ([facility]) [address] [place], [address], 11/21/2024 09:43:27 11/22/19 25 11/21/2024 urina lysis , dipst ick Blood Modera te Not Available [facility] ([facility]) [address] [place], [address], 11/21/2024 09:43:27 11/22/1911/21/2024 urina lysis , dipst ick Specific [place] 1.010 Not Available [facility] ( [facility]) [address] [place], [address], 11/21/2024 09:43:27 11/22/1911/21/2024 urina lysis , dipst ick Ketone Negati ve Not Available [facility] ([facility]) [address] [place], [address], 11/21/2024 09:43:27 11/22/19 25 11/21/2024 urina lysis , dipst ick Bilirubin Negati ve Not Available [facility] ([facility]) [address] [place], [address], 11/21/2024 09:43:27 11/22/19 25 11/21/2024 urina lysis , dipst ick Glucose Negati ve Not Available [facility] ([facility]) [address] [place], [address], 11/21/2024 09:43:27 11/22/19 25 11/21/2024 urina lysis , dipst ick Appearance Slight ly Cloudy Not Available [facility] ([facility]) [address] [place], [address], 11/21/2024 09:43:27 11/22/1911/21/2024 urina lysis , dipst ick Color Yellow Not Available [facility] [address] [place], [address], 11/21/2024 09:43:27 12/01/19 25 11/30/2024 urina lysis , dipst ick Leukocytes Large Not Available [facility] ( [facility] [address] [place], [address], 11/30/2024 18:00:38 12/01/19 25 11/30/2024 urina lysis , dipst ick Nitrite negati ve Not Available [facility] ([facility]) [address] [place], [address], 11/30/2024 18:00:38 12/01/19 25 11/30/2024 urina lysis , dipst ick Urobilinogen .2 Not Available [facility] ([facility]) [address] [place], [address], 11/30/2024 18:00:38 12/01/19 25 11/30/2024 urina lysis , dipst ick Protein 300 Not Available [facility] ([facility]) [address] [place], [address], 11/30/2024 18:00:38 12/01/19 25 11/30/2024 urina lysis , dipst ick pH 6.0 Not Available [facility] ([facility]) [address] [place], [address], 11/30/2024 18:00:38 12/01/19 25 11/30/2024 urina lysis , dipst ick Blood Large Not Available [facility] ([facility]) [address] [place], [address], 11/30/2024 18:00:38 12/01/19 25 11/30/2024 urina lysis , dipst ick Specific [place] 1.020 Not Available [facility] ( [facility]) [address] [place], [address], 11/30/2024 18:00:38 12/01/19 25 11/30/2024 urina lysis , dipst ick Ketone Trace Not Available [facility] ([facility]) [address] [place], [address], 11/30/2024 18:00:38 12/01/19 25 11/30/2024 urina lysis , dipst ick Bilirubin Negati ve Not Available [facility] ([facility]) [address] [place], [address], 11/30/2024 18:00:38 12/01/19 25 11/30/2024 urina lysis , dipst ick Glucose Negati ve Not Available [facility] ([facility]) [address] [place], [address], 11/30/2024 18:00:38 12/01/19 25 11/30/2024 urina lysis , dipst ick Appearance Cloudy Not Available [facility] ([facility]) [address] [place], [address], 11/30/2024 18:00:38 12/01/19 25 11/30/2024 urina lysis , dipst ick Color Yellow Not Available [facility] ([facility]) [address] [place], [address], 11/30/2024 18:00:38 12/13/19 25 12/12/2024 urina lysis , dipst ick Leukocytes Negati ve Not Available [facility] ([facility]) [address] [place], [address], 12/12/2024 10:24:42 12/13/19 25 12/12/2024 urina lysis , dipst ick Nitrite negati ve Not Available [facility] ([facility]) [address] [place], [address], 12/12/2024 10:24:42 12/13/19 25 12/12/2024 urina lysis , dipst ick Urobilinogen .2 Not Available [facility] ([facility]) [address] [place], [address], 12/12/2024 10:24:42 12/13/19 25 12/12/2024 urina lysis , dipst ick Protein Negati ve Not Available [facility] ([facility]) [address] [place], [address], 12/12/2024 10:24:42 12/13/19 25 12/12/2024 urina lysis , dipst ick pH 7.0 Not Available [facility] ([facility]) [address] [place], [address], 12/12/2024 10:24:42 12/13/19 25 12/12/2024 urina lysis , dipst ick Blood Negati ve Not Available [facility] ([facility]) [address] [place], [address], 12/12/2024 10:24:42 12/13/19 25 12/12/2024 urina lysis , dipst ick Specific [place] 1.015 Not Available [facility] ( [facility]) [address] [place], [address], 12/12/2024 10:24:42 12/13/19 25 12/12/2024 urina lysis , dipst ick Ketone Negati ve Not Available [facility] ([facility]) [address] [place], [address], 12/12/2024 10:24:42 12/13/19 25 12/12/2024 urina lysis , dipst ick Bilirubin Negati ve Not Available [facility] ([facility]) [address] [place], [address], 12/12/2024 10:24:42 12/13/19 25 12/12/2024 urina lysis , dipst ick Glucose Negati ve Not Available [facility] ([facility]) [address] [place], [address], 12/12/2024 10:24:42 12/13/19 25 12/12/2024 urina lysis , dipst ick Appearance Clear Not Available [facility] ([facility]) [address] [place], [address], 12/12/2024 10:24:42 12/13/19 25 12/12/2024 urina lysis , dipst ick Color Yellow Not Available [facility] ([facility]) [address] [place], [address], 12/12/2024 10:24:42 Result Notes None recorded. Problems Name Problem SNOMED Code Status Onset Date Resolution Date Notes Provider Name and Address Organization Details Recorded Time Hypercholes terolemia 57656867 Active 2022 YAIMA GRACIA [facility] 5 13:02:13 Benign essential hypertensio n 0822180 Active 2022 YAIMA GRACIA [facility] 5 13:02:13 Synovial cyst of left knee 9078969072883 02 Active 2022 YAIMA GRACIA [facility] 5 13:02:13 Essential hypertensio n 73306072 Active 2023 YAIMA GRACIA [facility] 5 13:02:13 Hyperlipide obey 59667528 Active 2023 YAIMA GRACIA [facility] 5 13:02:13 Carotid artery stenosis 30414984 Active 2023 YAIMA GRACIA [facility] 06/25/202 5 13:02:13 Basal cell carcinoma of skin 079698082 Active 2023 YAIMA SAMIA [facility] 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 5 13:02:13 Osteoarthri tis 209646595 Active 2024 [facility] 13:02:13 Problem Notes None recorded. Procedures Surgical History Date Name Laterality Status Provider Name and Address Organization Details Recorded Time 03/15/20 24 Joint Inj Kenalog- Shoulder, Hip, Knee completed Emanuel Marquez MD [address] [place] [address], [address], [facility] 03/16/2024 10:07:44 procedure on heart completed Merlene wyman [facility] 02/23/2024 10:50:51 Knee arthroscopy dx completed Merlene Robledo [facility] 02/23/2024 10:51:17 carotid endarterectomy completed YAIMA GRACIA [facility] 09/12/2024 09:30:34 cataract surgery completed YAIMA SAMIA [facility] 09/12/2024 09:31:23 Imaging Results None recorded. Procedure Notes None recorded. Medical Equipment None Reported. Allergies No known drug allergies Medications Name Sig Start Date Stop Date Status Note LastModified by Organization Details LastModified Time losartan 50 mg tablet TAKE 1 TABLET BY MOUTH DAILY 01/17 completed Not Available Not Available Not Available doxycycli ne hyclate 100 mg capsule take 1 capsule BY MOUTH TWICE DAILY for 10 days 09/11 completed Not Available Not Available Not Available amiodaron e 200 mg tablet TAKE 1/2 TABLET (100mg) BY MOUTH EVERY DAY active Not Available Not Available No t Available prednison e 20 mg tablet Take 2 tablets by mouth daily 02/14 completed Not Available Not Available Not Available ciproflox acin 250 mg tablet TAKE 1 TABLET BY MOUTH EVERY 12 HOURS FOR 7 DAYS 12/12 completed Not Available Not Available Not Available tramadol 50 mg tablet TAKE 1 TABLET BY MOUTH EVERY 6 HOURS WITH TYLENOL NEEDED active Not Available Not Available No t Available spironola ctone 25 mg tablet TAKE 1/2 TABLET (12.5 MG) BY MOUTH EVERY DAY 09/05 completed Not Available Not Available Not Available betametha sone acetate and sodium phos 6 mg/mL suspensio n for injection Take 1 mL every day by injectio n route for 1 day. 09/11 completed Not Available Not Available Not Available potassium chloride ER 20 mEq tablet,ex tended release(p art/cryst ) TAKE ONE TABLET BY MOUTH EVERY DAY 01/02 completed Not Available Not Available Not Available prednisol one acetate 1 % eye drops,qian pension instill 1 drop IN RIGHT EYE FOUR TIMES DAILY for 7 days 11/13 completed Not Available Not Available Not Available oseltamiv ir 75 mg capsule take 1 capsule BY MOUTH TWICE DAILY FOR FIVE DAYS 09/11 completed Not Available Not Available Not Available polymyxin B sulfate 10,000 unit-trim ethoprim 1 mg/mL eye drops STARTING at NOON THE DAY before surgery, ONE drop in right eye EVERY 2 HOURS UNTIL bedtime. USE ONE drop morning of surgery 02/26 completed Not Available Not Available Not Available losartan 25 mg tablet TAKE ONE TABLET BY MOUTH TWICE DAILY if blood pressure is less THAN 100 systolic HOLD dose 09/05 completed Not Available Not Available Not Available dorzolami de 22.3 mg-timolo l 6.8 mg/mL eye drops instill 1 drop into THE right eye FOUR TIMES DAILY FOR SEVEN DAYS 11/13 completed Not Available Not Available Not Available mupirocin 2 % topical ointment APPLY TOPICALL Y EVERY DAY active Not Available Not Available No t Available furosemid e 20 mg tablet TAKE ONE TABLET BY MOUTH EVERY MORNING NEEDED FOR edema active Not Available Not Available No t Available polyethyl subhash glycol 3350 17 gram/dose oral powder mix 17 grams in 8 ounces of liquid AND drink ONCE DAILY NEEDED 05/11 completed Not Available Not Available Not Available albuterol sulfate HFA 90 mcg/actua tion aerosol inhaler INHALE TWO PUFFS BY MOUTH EVERY 4 HOURS NEEDED 02/14 completed Not Available Not Available Not Available Spironola ctone W/Hctz 25 mg-25 mg tablet daily 05/11 completed 0; Recorded 07/27/19 23 12:59PM by Yaima Gracia, Office Visit; Not Available Not Available Not Available ezetimibe 10 mg tablet TAKE ONE TABLET BY MOUTH EVERY DAY active Not Available Not Available No t Available rosuvasta tin 40 mg tablet TAKE ONE TABLET BY MOUTH DAILY active Not Available Not Available No t Available Crestor 20 mg tablet Take 1 tablet every day by oral route. 05/11 completed Not Available Not Available Not Available Senna S 8.6 mg-50 mg tablet QD 2005 active Not Available Not Available Not Avai lable metoprolo l tartrate 25 mg tablet TAKE 1/2 TABLET (12.5mg) BY MOUTH TWICE DAILY active Not Available Not Available No t Available nitrofura ntoin monohydra te/macroc rystals 100 mg capsule Take 1 capsule every 12 hours by oral route for 7 days. 11/30 completed Not Available Not Available Not Available aspirin daily 09/11 completed 0; Recorded 07/27/19 23 12:59PM by Yaima Gracia, Office Visit; Not Available Not Available Not Available Fish Oil two times daily 02/14 completed Recorded 02/09/20 16 9:46AM by Odessa Perea LPN, Office Visit; Not Available Not Available Not Available metoprolo l tartrate two times daily 02/14 completed 0; Recorded 07/27/19 12:59PM by Yaima Gracia, Office Visit; Not Available Not Available Not Available amiodaron e daily 02/14 completed 0; Recorded 07/27/19 12:59PM by Yaima Gracia, Office Visit; Not Available Not Available Not Available furosemid e daily, as needed 02/14 completed 0; Recorded 07/27/19 12:59PM by Yaima Gracia, Office Visit; Not Available Not Available Not Available Vitamin D daily active Not Available Not Khadra ilable Not Available CoQ10 daily active Not Available Not Availa ble Not Available Potassium Chloride ER daily 02/14 completed vo RM/CC; 9; Recorded 11/19/19 4:18PM by Toma Armenta (Authori francine through Kaleb Merritt MD), Office Visit; Refill Quantity : 30; Capsule; Not Available Not Available Not Available Crestor daily 02/14 completed RM/CC; 9; Recorded 11/19/19 4:18PM by Toma Armenta (Jean Claude escamilla through Kaleb Merritt MD), Office Visit; Refill Quantity : 30; Tablet; Not Available Not Available Not Available vitamin B complex chewable tablet daily active Not Available Not Available Not Available diclofena c 1 % topical gel apply FOUR grams TO affected area topicall y FOUR TIMES DAILY active Not Available Not Available No t Available Eliquis 5 mg tablet TAKE 1 TABLET BY MOUTH TWICE DAILY active Not Available Not Available No t Available potassium chloride ER 20 mEq tablet,ex tended release TAKE ONE TABLET BY MOUTH DAILY active Not Available Not Available No t Available Vitals Date Recorded Body height Body mass index (BMI) Body weight Oxygen saturation Oxygen saturation in Arterial blood by Pulse oximetry Heart rate Respiratory rate Body temperature Systolic And Diastolic Provider Name and Address Organization Details Last Updated DateTime 5 154.94 cm 25.3 kg/m2 63299.3 8 g 97 % 97 % 86 /min 16 /min 98.2 [degF] 136/80 mm[Hg] Katelyn Harvey [facility] 5 09:49:50 Date Recorded Body height Body mass index (BMI) Body weight Body temperature Respiratory rate Heart rate Oxygen saturation Oxygen saturation in Arterial blood by Pulse oximetry Systolic And Diastolic Provider Name and Address Organization Details Last Updated DateTime 5 154.94 cm 25.5 kg/m2 25200.9 7 g 98.2 [degF] 17 /min 74 /min 98 % 98 % 108/58 mm[Hg] Wendy Thomas [facility] 5 18:09:52 Date Recorded Body height Body mass index (BMI) Body weight Body temperature Respiratory rate Heart rate Oxygen saturation Oxygen saturation in Arterial blood by Pulse oximetry Systolic And Diastolic Provider Name and Address Organization Details Last Updated DateTime 5 154.94 cm 25.7 kg/m2 13333.5 6 g 97.9 [degF] 16 /min 75 /min 98 % 98 % 110/60 mm[Hg] DANIEL SANTOYO [facility] 5 10:27:05 Date Recorded Body height Body mass index (BMI) Body weight Oxygen saturation Oxygen saturation in Arterial blood by Pulse oximetry Heart rate Systolic And Diastolic Provider Name and Address Organization Details Last Updated DateTime 5 154.94 cm 24.9 kg/m2 98330.1 9 g 98 % 98 % 63 /min 160/70 mm[Hg] [facility] 5 14:23:50 Date Recorded Body height Body mass index (BMI) Body weight Oxygen saturation Oxygen saturation in Arterial blood by Pulse oximetry Heart rate Systolic And Diastolic Provider Name and Address Organization Details Last Updated DateTime 5 154.94 cm 25.5 kg/m2 65988.9 7 g 98 % 98 % 66 /min 168/70 mm[Hg] [facility] 5 16:15:24 Social History Question Answer Notes LastModified by Organizat ion Details LastModified Time Tobacco Smoking Status Never Sm[facility]2023 16:45:44 What Was The Date Of Your Most Recent Tobacco Screening? 11/21/2024 [email or web address] Information not available 11/21/2024 Sex: Unknown Functional Status Question Answer Note LastModified by Organizat ion Details LastModified Time Do you use any illicit or recreational drugs? No [email or web address] Information not available 11/14/2023 What is your level of alcohol consumption? None [email or web address] Information not available 02/14/2023 Mental Status None recorded. Family History Nothing Reported. Medical History Condition Response Coronary Artery Disease N Other N Gout N Kidney Stones N Blood Diseases N Hyperthyroidism N Breast Cancer N Blood Transfusion N Hypothyroidism N Lung Disease N COPD N Depression N Defects or Inherited Disease N Developmental or Behavioral Disorders N Breast Problem N Difficulty Swallowing N Anesthesia Complications N Anxiety Disorder N Meniere's disease N Muscle, Joint, or Bone Problems N Vision or Eye Problems N Arthritis N Polyps N Infertility N Cancer N Varicosities N Stroke N Endometriosis N Bladder or Kidney Problems N High Cholesterol N Liver Disease N Headaches N Fibromyalgia N Kidney Disease N Allergies/Hayfever N Heart Problems N Ear or Hearing Problems N Hospitalizations N Thyroid Problems N GI Problems N ADD/ADHD N Skin Problems N Eating Disorder N Anemia N Constipation N Mental Illness N Ovarian Cancer N Diabetes N Bedwetting N Seizures/Epilepsy N Tuberculosis N Eczema N Diverticulitis N Abuse/Domestic Violence N Asthma N Reflux/GERD N Hepatitis N Heart Disease N Pulmonary Embolism N Chronic Ear Infections N Pre-Eclampsia N Hypertension N Chicken Pox N Autism Spectrum Disorder (ASD) N Osteoporosis N Thrombophilias N Gynecological HistoryNo gynecological history recorded. Obstetrics History GPAL:G 0 P 0 0 0 0 Immunizations Vaccine Type Date Status Note Provider Nam e and Address Organization Details Recorded Time Td (adult), 2 Lf tetanus toxoid, preservative free, adsorbed 6 completed Not Available [facility] 02/05/2023 02:39:27 Influenza, split virus, trivalent, preservative 1 completed Not Available [facility] 02/05/2023 02:39:28 Influenza, split virus, trivalent, preservative 4 completed Not Available [facility] 02/05/2023 02:39:28 Influenza, split virus, trivalent, preservative 3 completed Not Available [facility] 02/05/2023 02:39:29 Influenza, split virus, trivalent, preservative 8 completed Not Available [facility] 02/05/2023 02:39:29 pneumococcal polysaccharide PPV23 8 completed Not Available [facility] 02/05/2023 02:39:29 COVID-19, mRNA, LNP-S, PF, 30 mcg/0.3 mL dose 1 [facility]12[facility] 14:40:05 COVID-19, mRNA, LNP-S, PF, 30 mcg/0.3 mL dose 1 completed [facility] 09/12/2023 14:40:05 COVID-19, mRNA, LNP-S, PF, 30 mcg/0.3 mL dose, lizzie-sucrose 2 completed [facility] 09/12/2023 14:40:05 COVID-19, mRNA, LNP-S, bivalent, PF, 30 mcg/0.3 mL dose 2 completed YAIMA GRACIA [facility] 09/12/2023 14:40:05 Pneumococcal conjugate PCV 13 6 completed YAIMA GRACIA [facility] 09/12/2023 14:40:05 Influenza, high-dose, quadrivalent, PF 3 completed Narcisa Neves [facility] 11/14/2023 10:08:56 COVID-19, mRNA, LNP-S, PF, lizzie-sucrose, 30 mcg/0.3 mL 3 completed [facility] 11/14/2023 10:08:56 RSV, bivalent, protein subunit RSVpreF, diluent reconstituted, 0.5 mL, PF 3 completed YAIMA GRACIA ronda, [facility] 01/18/2024 14:43:52 COVID-19, mRNA, LNP-S, PF, 50 mcg/0.5 mL 4 completed Not Available [facility] 01/16/2025 15:42:04 RSV, bivalent, protein subunit RSVpreF, diluent reconstituted, 0.5 mL, PF 3 completed Not Available [facility] 01/16/2025 15:42:04 zoster recombinant 5 completed Not Available [facility] 01/16/2025 15:42:03 Influenza, adjuvanted, trivalent, PF 4 completed CANDIDA bond, [facility] 04/27/2024 12:43:48 Past Encounters Encounter ID Performer Location Encounter Start Date Encounter Closed Date Diagnosis/Indication Diagnosis SNOMED-CT Code Diagnosis ICD10 Code Diagnosis Note [id number] Kaleb Merritt MD [facility] ([facility]) [address] [place] [address] [phone] 5 02/14/2023 16:24:02 02/14/2023 17:52:12 Benign essential hypertension 7200762 I10 Hypercholesterolemia 136 60095 E78.00 Constipation 87645967 K5 9.00 Impacted cerumen 8779842 6 H61.22 cleansed with peroxide and water and wax removed. [id number] Emanuel Marquez MD [facility] ([facility]) [address] [place] [address] [id number] 5 04/28/2023 10:16:35 04/28/2023 15:24:20 Osteoarthritis of left knee joint 9532826895 75999 M17.12 Likely osteoarthr itis contributi ng to the patient's symptoms. The patient has a significan t history of trauma to this knee with surgery in the past. Dr. Merritt used to do injections , but has been told that they are not likely to be effective at this point. I would agree that actions likely have limited benefit. Start topical diclofenac . Discussed rest, ice, and elevation. Follow-up with PCP if symptoms do not improve. [id number] Kaleb Merritt MD [facility] ([facility]) [address] [place] [address] [id number] 5 05/11/2023 11:33:23 05/11/2023 13:07:06 Osteoarthritis of left knee joint 0243314156 00063 M17.12 Benign ess ential hypertension 5845288 I10 Synovial c yst of left knee 0154279080 13763 M71.22 [id number] ROMI ROSA [facility] ([facility]) [address] [place], [place] [phone] 5 07/27/2023 15:59:46 07/27/2023 18:50:01 Acute upper respiratory infection 90345854 J06.9 Will start doxycyclin e today. Discussed avoiding cough suppressan ts. Recommend a follow up with PCP in 2 weeks. If chest pain or severe SOB occurs, should go to ED. Patient verbalizes understand ing. [id number] PAIGE RIOS [facility] ([facility]) [address] [place], [place] [phone] 07/29/2023 10:45:49 07/29/2023 12:58:58 Dyspnea 671030867 R06.00 [id number] PAIGE CHEEMA [facility] ([facility]) [address] [place], [place] [phone] 08/22/2023 17:43:27 08/22/2023 18:42:36 Lesion of skin of face 1104774422 06 L98.9 Discussed f/u with dermatolog y for further evaluation . Referral sent today. [id number] Kaleb Merritt MD [facility] ([facility]) [address] [place] [address] [id number] 5 09/06/2023 09:35:11 09/07/2023 09:47:57 Benign essential hypertension 6175560 I10 Hypercholesterolemia 136 19115 E78.00 [id number] Kaleb Merritt MD [facility] ([facility]) [address] [place] [address] [id number] 5 09/12/2023 14:12:47 09/12/2023 15:58:12 Essential hypertension 53051240 I10 Hyperlipidemia 09608488 E78.5 [id number] PAIGE CHEEMA [facility] ([facility]) [address] [place] [address] [phone] 5 11/14/2023 10:06:39 11/14/2023 12:59:31 Skin lesion 63522372 L98.9 Keep appt as scheduled with Dr. Pereira, Dermatolog y.It is ok to perform water aerobics. [id number] Kaleb Merritt MD [facility] ([facility]) [address] [place] [address] [phone] 5 01/18/2024 14:43:11 01/18/2024 16:12:54 Benign essential hypertension 9402693 I10 stable at this time. Hyperlipidemia 22146154 E78.5 continue present meds. Carotid ar graham stenosis 21286896 I65.29 >70% blockage on left. She had right CEA in 2005. Planning on angiogram to evaluate further. Basal cell carcinoma of skin 623955561 C44.91 followed by dermatolog y here. [id number] Emanuel Marquez MD [facility] ([facility]) [address] [place] [address] [id number] 5 02/23/2024 10:39:37 02/23/2024 11:35:45 Osteoarthritis of right knee joint 5677582437 53930 M17.11 Likely osteoarthr itis based on exam and history. Start diclofenac gel. Continue range of motion exercises. 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 Recommend the patient undergo physical therapy. The patient was agreeable with this plan. [id number] NATALYA JAUREGUI [employer]USH HEAD [employer] [facility] ([facility]) [address] [place] [address] [id number] 5 02/27/2024 11:28:38 02/27/2024 13:32:05 Pain of right knee joint 3516494113 10151 M25.561 OA noted on xray but nothing acute. Pt trialed voltarin with no relief of symptoms. Now has swelling to right lower leg, continued pain with movement. Discussed with PCP, Dr. Merritt. agree on MRI and f/u with him after.Pt does have some calf pain. Is anticoagul ated due to a-fib. [id number] Emanuel Marquez MD [facility] ([facility]) [address] [place] [address] [phone] 5 03/15/2024 16:51:00 03/17/2024 23:19:19 Osteoarthritis of right knee joint 7872073588 69247 M17.11 The patient continues to have significan t discomfort . The patient has a MRI scheduled in 2 and half weeks. Patient wanted to proceed with injection today. Recommend continuing physical therapy and exercises. Pes anseri nus bursitis 22443448 M70.51 [id number] PAIGE CHEEMA [facility] ([facility]) [address] [place] [address] [id number] 5 04/18/2024 17:17:21 04/18/2024 18:14:05 Edema of lower extremity 784434179 R60.0 Will give pt lasix for next 5 days. Start tomorrow morning. Elevate the legs and continue to wear compressio n socks daily. Keep appt as scheduled next week with cardiology and PCP [id number] Kaleb Merritt MD [facility] ([facility]) [address] [place] [address] [phone] 5 04/27/2024 11:17:55 04/28/2024 09:42:41 Benign essential hypertension 9639673 I10 stable at this time. Hypercholesterolemia 136 98198 E78.00 Hyperlipidemia 90023320 E78.5 continue present meds. Essential hypertension 24344646 I10 Carotid ar graham stenosis 21147299 I65.29 80% blockage on the left. Has an appt coming up with vascular surgeon. Osteoarthr itis of left knee joint 1399946408 52736 M17.12 She is not wanting to have knee surgery. She is getting PT and injections . Osteoarthr itis of right knee joint 8502040834 24539 M17.11 Will order a cane for use for ambulation . Moderate a ortic valve stenosis 314281977 I35.0 followup Echocardio gram is pending. Atrial fibrillation 4943 6004 I48.91 [id number] Kaleb Merritt MD [facility] ([facility]) [address] [place] [address] [id number] 5 2024 11:07:18 2024 15:24:05 Constipation 29007165 K59.00 will try metamucil. Atrial fibrillation 4943 6004 I48.91 Benign ess ential hypertension 3026950 I10 stable at this time. Carotid ar graham stenosis 12911810 I65.29 moderate. Moderate a ortic valve stenosis 442458974 I35.0 Stable. Moderate to severe. Osteoarthritis 355334344 M19.90 Pain of bi lateral knee joints 0429579118 74449 M25.561 M25.793 [id number] PAIGE VILLA [facility] ([facility]) [address] [place] [address] [id number] 5 11/21/2024 09:38:30 11/21/2024 10:09:33 Dysuria 52862836 R30.0 Discussed to take antibiotic as prescribed until completedU rine culture ordered - will notify of any resultsEdu cated patient on increasing PO fluids of water, decreasing caffeine (coffee) and sugary drinks.Dis cussed importance of avoiding baths, scented soaps, douching, perfumes.M ay take OTC AZO for 1-2 days as box directs for burning sensation. Discussed if developmen t of abdominal pain, flank pain, fever, vomiting, worsening symptoms return to walk-in, PCP or ED for re-evaluat ion. Return to clinic if any changes, any worsening, any concernsPa tient verbalized understand ing of plan. [id number] PAIGE CHEEMA [facility] ([facility]) [address] [place] [address] [id number] 5 11/30/2024 17:58:14 12/04/2024 13:24:27 Dysuria 13318043 R30.0 UA results reviewed and discussed with pt. We will start antibiotic s. Pt will increase oral fluids and can use cranberry. Return to office with no improvemen t or any problems. Go to ER with severe worsening or severe problems.W e will obtain urine culture.Re viewed chart and lab results from 11/21 visit [id number] PAIGE CHEEMA [facility] ([facility]) [address] [place] [address] [id number] 5 12/12/2024 10:16:35 12/12/2024 11:04:22 Dysuria 85765601 R30.0 UTI cleared from last infection. Pt has no side effects from cipro. No changes today. [id number] Kaleb Merritt MD [facility] ([facility]) [address] [place] [address] [id number] 5 01/02/2025 14:16:16 01/02/2025 15:23:51 Atrial fibrillation 33056137 I48.91 Eliquis samples given. Benign ess ential hypertension 7354958 I10 stable at this time. Osteoarthritis 427983447 M19.90 bilateral knee pain. Followed by orthopedic s. Excessive cerumen in ear canal 455902052 H61.23 [id number] Kaleb Merritt MD [facility] ([facility]) [address] [place] [address] [id number] 5 01/16/2025 15:41:52 01/17/2025 17:13:55 Benign essential hypertension 0184885 I10 stable at this time. Atrial fibrillation 4943 6004 I48.91 regular rhythm today. Carotid ar graham stenosis 67226885 I65.29 moderate. Moderate a ortic valve stenosis 014235983 I35.0 Stable. Moderate to severe. Health Concerns Section Related Observation LastModified by Organization Detai ls LastModified Time None Recorded Concern Status LastModified by Organization Details LastModified Time None Recorded Advance Directives Directive None Recorded Payers Insurance Date Sequence Insurance Name Policy Number Policy Kaufman Covered Member ID Kaufman Member ID Guarantor Name 09/03/2024 1 MEDICARE [place]: [facility] Christianne Ellison [id number] Christianne Ellison 01/16/2025 2 [facility] RAIL[facility] PLAN D AND F (MEDICARE SUPPLEMENT) [id number] Mrs Micha Connell Scot [id number] Christianne Ellison 01/16/2025 [place] - [place] A - [facility] (MEDICARE) Christianne Ellison [id number] Christianne Ellison 01/16/2025 1 [facility] [facility] BO[facility] (MEDICARE) Christianne Ellison [id number] Christianne Ellison 09/03/2024 MEDICARE [place]: [facility] Christianne Ellison [id number] Christianne Ellison Notes Date Note Type Note Provider Name and Address Organization Details Recorded Time 5 text/html walk in patientpatient is here today for urinary frequency, urinary urgency, and body aches that started 2 days ago. MARIELENA CHANELLE, [facility] [address] [place], [address], [facility], LRossana. 11/21/2024 10:03:22 5 text/html walk in ptPt has burning and urgency for 2 days. Just finished an antibiotic for UTI on . Symptoms were resolved and then returned yesterday. denies fever, back pain, or weakness. is eating/drinking normally. ANTALYA JAUREGUI [facility] [address] [place], [address], [facility], LTanoLMissy. 12/01/2024 18:53:15 5 text/html Patient was recently treated for an UTI. She wants to make sure it has cleared up. She tolerated the cipro well. Completed the course a couple days ago. States she feels fine now. NATALYANILA JAUREGUI [facility] [place], [address], [facility], LTanoLMissy. 12/12/2024 11:03:57 5 text/html HyperlipidemiaReported bypatient.Duration:chronic Control:usually well controlled Adherence to Treatment Plan:takes medications as prescribed Risk Factors:hypertensionHyperte nsion IM/FMReported bypatient.Quality:here for check-up Severity:stage 1 (130-139/80-89 mmHg) Onset/Timing:gradual onset Alleviating Factors:medication Associated Symptoms:no shortness of breath; no palpitations; no chest pain Would like to discuss Eliquis. Kaleb Merritt MD [address] [place], [address], [facility], LTanoLMissy. 01/02/2025 15:02:07 5 text/html Hypertension IM/FMReported bypatient.Quality:here for check-up Severity:normal (<120/<80 mmHg) Onset/Timing:gradual onset Alleviating Factors:medication Associated Symptoms:no shortness of breath; no palpitations; no chest pain Went to Dermatology today and was told to come to her PCP for low BP. Pressure was 110/50 at Derm. Kaleb Merritt MD [address] [place] [address], [phone], [facility], LTanoLMack 01/16/2025 16:54:38 OBGyn Episode No OBEpisode recorded.
--- OUTSIDE RECORDS SUMMARY | 2025-01-28 20:39 | XMS_ITS | Encounter Summary ---
Author Organization [facility] Address [address] Miller: Epic Prelude ADT [place] [address] Care Team Providers Care Recruit Instructor Name Role Phone Unavailable Primary Care Provider Unavailabl e Encounter Details Date Type Department Care Team (Late st Contact Info) Description 10/17/2000 Outpatient Historical Stanislav Simon MD NO ADDRESS ON FILE Social History Tobacco Use Types Packs/Day Years Used Date Smoking Tobacco: Never Assessed Comments Unknown Sex and Gender Information Value Date Recorded Sex Assigned at Not on file Legal Sex Female 5:23 AM LVN Gender Identity Not on file Sexual Orientation Not on file documented as of this encounter Plan of Treatment Not on file documented as of this encounter Visit Diagnoses Not on filedocumented in this encounter
--- NOTE | 2025-01-28 20:51 | ECG_ITS ---
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 Measurements Intervals Pillow Rate: 57 P: 52 IA: 172 QRS: -3 QRSD: 158 T: 55 QT: 474 QTc: 465 Interpretive Statements SINUS BRADYCARDIA POSSIBLE LEFT ATRIAL ENLARGEMENT [-0.1mV P-WAVE IN V1/V2] LEFT BUNDLE BRANCH BLOCK [120+ ms QRS DURATION, 80+ ms Q/S IN V1/V2, 85+ ms R IN I/aVL/V5/V6] Compared to ECG 03/27/2024 12:54:18 Sinus rhythm no longer present Electronically Signed On 01-31-2025 09:05:52 CDT by Tigre Paez M.D. [email or web address]
--- NOTE | 2025-01-28 20:51 | XRR_ITS ---
PROCEDURE INFORMATION: Exam: XR Chest Exam date and time: 01/28/2025 8:57 PM Age: 89 years old Clinical indication: Cough and dyspnea; Prior surgery; Surgery date: 6+ months; Surgery type: Cabg 2017; Additional info: Dyspnea/cough TECHNIQUE: Imaging protocol: Radiologic exam of the chest. Views: 1 view. COMPARISON: CR XR chest 2V* [id number] 01/23/2019 6:25 PM FINDINGS: Lungs: Unremarkable. No consolidation. Pleural spaces: Unremarkable. No pleural effusion. No pneumothorax. Heart/Mediastinum: Unremarkable. No cardiomegaly. Status post CABG Bones/joints: Unremarkable. XR/XR chest 1V portable [id number] IMPRESSION: No acute findings.
--- NOTE | 2025-01-28 20:51 | CTR_ITS ---
PROCEDURE INFORMATION: Exam: CT Head Without Contrast Exam date and time: 01/28/2025 9:34 PM Age: 89 years old Clinical indication: Altered mental status/memory loss; Confusion or disorientation TECHNIQUE: Imaging protocol: Computed tomography of the head without contrast. Radiation optimization: All CT scans at this facility use at least one of these dose optimization techniques: automated exposure control; mA and/or kV adjustment per patient size (includes targeted exams where dose is matched to clinical indication); or iterative reconstruction. COMPARISON: CT angio neck [id number] 03/27/2024 8:23 AM RADIATION DOSE METRICS: Total DLP (mGy-cm): 1022.4 FINDINGS: Brain: No acute intra-axial hemorrhage. No masses. Normal jaquez-white matter differentiation. No midline shift or mass effect. Moderate patchy hypodensity in hemispheric white matter bilaterally most likely due to chronic microangiopathy. There is mild diffuse cerebral atrophy present, consistent with this patient's age. Cerebral ventricles: No ventriculomegaly. Paranasal sinuses: Visualized sinuses are unremarkable. No fluid levels. Mastoid air cells: Visualized mastoid air cells are well aerated. Bones: Unremarkable. No acute fracture. Soft tissues: Unremarkable. CT/CT head wo con* [id number] IMPRESSION: No acute intracranial abnormality.
--- NOTE | 2025-01-28 21:00 | W.ED.WEAKNES ---
HPI - Weakness General: Chief complaint: Weakness Stated complaint: Tired\Confused\BP High\Possible Stroke Time Seen by Provider: 01/28/25 20:47 History of Present Illness: 81-year-old female presents emergency room complaining of fatigue and difficulty with her memory. She has had what she describes many strokes in the past she has a history of atrial fibrillation and she is on Eliquis. She said her last couple weeks she has intermittently had trouble with her memory at various times today she could not remember that her son lives out of [place]. She said she has been very tired last several weeks as well. Blood pressure was elevated earlier today is slightly improved now. She thinks she may have missed part of her dose of metoprolol earlier in the day. On initial arrival here she has no focal neurologic deficits her NIH score on initial exam is 0 Associated symptoms: Denies chest pain, chills, dysuria or fever(s) Related Data Home Medications ?Medication ?Instructions ?Recorded ?Confirmed coenzyme Q10 10 mg capsule 10 mg PO DAILY 08/22/19 02/05/25 folic acid 1 mg tablet 1 mg PO DAILY 08/22/19 02/05/25 omega-3 fatty acids 1,000 mg 1,000 mg PO DAILY 08/22/19 02/05/25 capsule vitamin B complex 1 tab PO DAILY 08/22/19 02/05/25 cholecalciferol (vitamin D3) 50 50 mcg PO DAILY 03/27/24 02/05/25 mcg (2,000 unit) tablet (Vitamin D3) Previous Rx's ?Medication ?Instructions ?Recorded aspirin 81 mg tablet,delayed 81 mg PO DAILY #90 tabs 10/26/21 release (Adult Low Dose Aspirin) apixaban 5 mg tablet (Eliquis) 5 mg PO BID #180 tabs 12/09/23 Rollator walker #1 ea 04/16/24 ezetimibe 10 mg tablet 10 mg PO DAILY #90 tabs 06/06/24 amiodarone 200 mg tablet 100 mg (1/2 x 200 mg) PO DAILY #90 08/09/24 tabs metoprolol tartrate 25 mg tablet 12.5 mg (1/2 x 25 mg) PO BID #90 08/10/24 tabs potassium chloride 20 mEq 20 meq PO DAILY #90 tabs 08/17/24 tablet,extended release rosuvastatin 40 mg tablet 40 mg PO DAILY #90 tabs 10/03/24 left medial news production supervisor brace #1 ea 12/04/24 right lateral news production supervisor brace #1 ea 12/04/24 amlodipine 2.5 mg tablet 2.5 mg PO BID #60 tabs 02/05/25 furosemide 20 mg tablet 20 mg PO QAM PRN edema #90 tabs 02/05/25 Allergies Allergy/AdvReac Type Severity Reaction Status Date / Time No Known Allergies Allergy Verified 02/05/25 13:32 Review of Systems Const: Denies: fever(s) or chills Card: Denies: chest pain Resp: Denies: dyspnea GI: Denies: abdominal pain : Denies: dysuria, urinary frequency or urinary urgency Musc: Denies: neck pain or back pain Skin/Breast: Denies: rash PFSH ED PFSH: Medical History Tricuspid insufficiency Aortic stenosis with trileaflet valve Carotid stenosis Coronary artery disease Hypertension Hyperlipidemia Atrial fibrillation Anticoagulated with apixaban Surgical History History of carotid endarterectomy Hx of CABG History of knee surgery Family History Mother CAD (coronary artery disease) Diabetes Stroke Brother Cancer Diabetes Other Hypertension Denies family history of Clotting disorder Dementia Chronic kidney disease (CKD) Suicide Anesthesia complication Bleeding disorder Lung disease Social History Smoking and tobacco/nicotine status: never used tobacco/nicotine Alcohol intake: never Substance/Drug Use: never Physical Exam Const: GENERAL APPEARANCE: cooperative ORIENTATION/CONSCIOUSNESS: Yes awake, Yes oriented to person, Yes oriented to place and Yes oriented to time HENMT: COMMON NORMALS: normocephalic, atraumatic and hearing grossly normal bilaterally HEAD & SCALP: normocephalic and atraumatic Resp: COMMON NORMALS: normal respiratory effort, No retractions, No use of accessory muscles and clear to auscultation bilaterally AUSCULTATION: clear to auscultation bilaterally Cardio: COMMON NORMALS: regular rate, regular rhythm and No murmurs present (Cardio) RATE: regular rate RHYTHM: regular rhythm GI: COMMON NORMALS: Soft to palpation and No hepatosplenomegaly present AUSCULTATION: Yes normoactive bowel sounds PALPATION: Yes Soft to palpation, No Tenderness to palpation present (GI), No Guarding due to palpation present (GI) and Yes No hepatosplenomegaly present Extremity: COMMON NORMALS: normal to inspection, capillary refill normal, no clubbing, cyanosis or edema, no calf tenderness and no pedal edema Neuro: SENSORIUM/ORIENTATION: Yes oriented to person, Yes oriented to place and Yes oriented to time OTHER: No focal neurologic deficits noted. No lateralizing deficits strength in all extremities normal symmetrical facial movements. Skin: COMMON NORMALS: no rashes or lesions noted GENERAL SKIN EXAM: no rashes or lesions noted Course Vital Signs: Vital signs: Vital Signs Temperature 97.9 F 01/29/25 00:15 Pulse Rate 68 01/29/25 00:15 Respiratory Rate 17 01/29/25 00:15 Blood Pressure 181/83 01/29/25 00:15 Pulse Oximetry 97 01/29/25 00:15 Oxygen Delivery Me thod Room Air 01/28/25 23:30 MDM - Weakness Medical Decision Making Patient has intermittent confusion and memory loss but no signs of stroke. She does not have any lateralizing symptoms. I believe she is experiencing intermittent degrees of cognitive dysfunction. CT of the head is unremarkable. Will discharge patient home and have her follow-up with her primary care doctor. Monitor blood pressure closely. Follow-up with primary care Lab Data 01/28/25 21:16 01/28/25 21:16 Radiology Impressions Chest X-Ray 01/28/25 20:51 IMPRESSION: No acute findings. Head CT 01/28/25 20:51 IMPRESSION: No acute intracranial abnormality. Laboratory Results WBC 7.95 10^3/uL (3.29-11.43) 01/28/25 21:16 RBC 4.18 10^6/uL (3.85-5.65) 01/28/25 21:16 Hgb 12.70 g/dL (11.27-16.99) 01/28/25 21:16 Hct 38.9 % (36-47) 01/28/25 21:16 MCV 93.1 fl (85-98) 01/28/25 21:16 MCH 30.4 pg (27-33) 01/28/25 21:16 MCHC 32.6 g/dL (30-55) 01/28/25 21:16 RDW 15.7 % (12.1-15.1) H 01/28/25 21:16 Plt Count 153 10^3/cmm (157-399) L 01/28/25 21:16 MPV 10.6 fL (7.4-10.4) H 01/28/25 21:16 Neut % (Auto) 47.6 % 01/28/25 21:16 Lymph % (Auto) 37.2 % 01/28/25 21:16 [place] % (Auto) 13.6 % 01/28/25 21:16 Eos % (Auto) 0.8 % 01/28/25 21:16 Baso % (Auto) 0.4 % 01/28/25 21:16 Neut # (Auto) 3.79 10^3/uL (1.8-7.7) 01/28/25 21:16 Lymph # (Auto) 3.0 10^3/uL (0.8-4.8) 01/28/25 21:16 [place] # (Auto) 1.1 10^3/uL (0.2-0.9) H 01/28/25 21:16 Eos # (Auto) 0.1 10^3/uL (0.0-0.8) 01/28/25 21:16 Baso # (Auto) 0.0 10^3/uL (0.0-0.1) 01/28/25 21:16 Nucleated RBC % (auto) 0 % 01/28/25 21:16 Nucleated RBCs # 0.0 /100WBC 01/28/25 21:16 Sodium 133 mmol/L (136-145) L 01/28/25 21:16 Potassium 4.5 mmol/L (3.5-5.1) 01/28/25 21:16 Chloride 99 mmol/L (98-107) 01/28/25 21:16 Carbon Dioxide 20 mmol/L (22-29) L 01/28/25 21:16 Anion Gap 18.5 (5-19) 01/28/25 21:16 BUN 9 mg/dL (8-23) 01/28/25 21:16 Creatinine 0.7 mg/dL (0.5-0.9) 01/28/25 21:16 GFR Calculation Not Reportable 01/28/25 21:16 Glucose 85 mg/dL (65-115) 01/28/25 21:16 Calculated Osmolality 274 mOsm/kg (285-295) L 01/28/25 21:16 Calcium 9.0 mg/dL (8.5-10.5) 01/28/25 21:16 Total Bilirubin 0.4 mg/dL (0.15-1.2) 01/28/25 21:16 AST 42 U/L (0-32) H 01/28/25 21:16 ALT 24 U/L (0-33) 01/28/25 21:16 Alkaline Phosphatase 44 U/L (35-105) 01/28/25 21:16 Troponin T Baseline 17 ng/L (0-10) H 01/28/25 21:16 Troponin T 120 Minute 15.81 ng/L (0-10) H 01/28/25 22:35 Delta Troponin T -1.19 ABS# (0-10) L 01/28/25 22:35 Total Protein 6.0 g/dL (6.6-8.7) L 01/28/25 21:16 Albumin 4.0 g/dL (3.5-5.2) 01/28/25 21:16 Globulin 2.0 g/dL (1.3-4.6) 01/28/25 21:16 All radiology interpretation(s) finalized by discharge Discharge Plan Discharge Patient Disposition: Home Clinical Impression: Aortic stenosis with trileaflet valve Hypertension Qualifiers: Hypertension type: essential hypertension Qualified Code(s): I10 - Essential (primary) hypertension Carotid stenosis Qualifiers: Laterality: bilateral Qualified Code(s): I65.23 - Occlusion and stenosis of bilateral carotid arteries Condition: Stable Prescriptions: No Action omega-3 fatty acids 1,000 mg capsule 1,000 mg PO DAILY coenzyme Q10 10 mg capsule 10 mg PO DAILY vitamin B complex Tablet 1 tab PO DAILY folic acid 1 mg tablet 1 mg PO DAILY (DME) left medial news production supervisor brace See Rx Instructions .Route .MEDSUPPLY Qty: 1 0RF Rx Instructions: As directed (DME) right lateral news production supervisor brace See Rx Instructions .Route .MEDSUPPLY Qty: 1 0RF Rx Instructions: As directed amlodipine 2.5 mg tablet 2.5 mg PO BID Qty: 60 3RF furosemide 20 mg tablet 20 mg PO QAM PRN (Reason: edema) Qty: 90 3RF aspirin [Adult Low Dose Aspirin] 81 mg tablet,delayed release (DR/EC) 81 mg PO DAILY Qty: 90 3RF Eliquis 5 mg tablet 5 mg PO BID Qty: 180 3RF (DME) Mitchell samson See Rx Instructions .Route .MEDSUPPLY Qty: 1 0RF Rx Instructions: Mitchell samson will help with her MRADL ezetimibe 10 mg tablet 10 mg PO DAILY Qty: 90 3RF amiodarone 200 mg tablet 100 mg PO DAILY Qty: 90 3RF metoprolol tartrate 25 mg tablet 12.5 mg PO BID Qty: 90 3RF potassium chloride 20 mEq tablet extended release 20 meq PO DAILY Qty: 90 3RF rosuvastatin 40 mg tablet 40 mg PO DAILY Qty: 90 3RF Vitamin D3 50 mcg (2,000 unit) Tablet 50 mcg PO DAILY Discharge Orders: Discharge ED (Routine); Ordered 01/28/25 Ordered By: Sloan David Referrals: Bryce Merritt MD [Primary Care Provider, Family Practice] Discharge Diet: Usual diet Discharge Activity: Increase activity as tolerated Patient Instructions: Opioid Safety, Pain Management, Patient Portal & [place] Instructions Activity Restrictions/Additional Instructions: Thank you for choosing [facility] for your healthcare needs today. It is very important that you follow up as instructed or that you return to the Emergency Department should you have concerns or if your condition changes or worsens in any way. You are seen in the emergency room with complaints of forgetfulness elevated blood pressure. We evaluated you for possible stroke. Initial score 4 on the stroke score was 0. CT of your head is negative. You are already on a statin and dual anticoagulation. Your blood pressure was somewhat elevated. CT of your head was negative. Blood pressures laying sitting and standing were all stable. Recommend discharge home will have you follow-up with your primary care provider to reevaluate your blood pressure within the next 7 to 10 days. Also set you up for an outpatient MRI of the head. Print Language: Urdu Coding Level of Care Code ED Orthopedic Cast Specialist for Stephanie Samuel
[2025-01-28 21:30] VITALS: BP 165/72; PULSE 57; RESP 16; O2SAT 97
[2025-01-28 21:42] LABS: Troponin(5th) Baseline 17 ng/L (0-10)
[2025-01-28 21:46] LABS: Hematocrit 38.9 % (36-47); Hemoglobin 12.70 g/dL (11.27-16.99); Mean Corpuscular HGB Conc 32.6 g/dL (30-55); Mean Corpuscular Hemoglobin 30.4 pg (27-33); Mean Corpuscular Volume 93.1 fl (85-98); Nucleated Red Blood Cells % 0 %; Platelet Count 153 10^3/cmm (157-399); Red Blood Count 4.18 10^6/uL (3.85-5.65); White Blood Count 7.95 10^3/uL (3.29-11.43)
[2025-01-28 21:47] LABS: Alanine Aminotransferase 24 U/L (0-33); Albumin Level 4.0 g/dL (3.5-5.2); Alkaline Phosphatase 44 U/L (35-105); Blood Urea Nitrogen 9 mg/dL (8-23); Calcium 9.0 mg/dL (8.5-10.5); Carbon Dioxide 20 mmol/L (22-29); Chloride 99 mmol/L (98-107); Creatinine Clr Calc Pharmacy 40.1075; Globulin 2.0 g/dL (1.3-4.6); Glucose 85 mg/dL (65-115); Osmolality Calculated 274 mOsm/kg (285-295); Sodium 133 mmol/L (136-145); Total Protein 6.0 g/dL (6.6-8.7)
[2025-01-28 22:01] LABS: Anion Gap 18.5 (5-19); Aspartate Amino Transferase 42 U/L (0-32); Potassium 4.5 mmol/L (3.5-5.1)
[2025-01-28 22:30] VITALS: BP 155/65; PULSE 77; RESP 18; O2SAT 95
--- NOTE | 2025-01-28 22:51 | ECG_ITS ---
[facility] Date: 2025-[facility]-28 Pat Name: Christianne Ellison Department: Room: Gender: Female Compensation Manager: : 1935 Requested By: Sloan Reed Order Number: [id number] Viktor MD: Harinder Mohan M.D. Measurements Intervals [place] Rate: 62 P: 55 AZ: 179 QRS: -7 QRSD: 163 T: 68 QT: 490 QTc: 501 Interpretive Statements SINUS RHYTHM LEFT ATRIAL ENLARGEMENT [-0.15mV P-WAVE IN V1/V2] LEFT BUNDLE BRANCH BLOCK [120+ ms QRS DURATION, 80+ ms Q/S IN V1/V2, 85+ ms R IN I/aVL/V5/V6] Compared to ECG 01/28/2025 20:44:38 Sinus bradycardia no longer present Electronically Signed On 02-02-2025 14:43:31 CDT by Kimberlee [email or web address]
[2025-01-28 23:11] LABS: Troponin 5 2HR 15.81 ng/L (0-10)
[2025-01-28 23:12] LABS: Troponin 5 2HR Delta -1.19 ABS# (0-10)
--- NOTE | 2025-01-28 23:14 | PC.NURSE ---
Orthostatic Vital Signs are as follows below: Layin/71 HR 63 Sittin/75 HR 65 Standin/81 HR 73 Nurse tech states to RN that pt got dizzy upon standing and had to be guided back to bed
[2025-01-28 23:30] VITALS: BP 194/74; PULSE 67; RESP 17; O2SAT 95
[2025-01-29 00:15] VITALS: BP 181/83; PULSE 68; RESP 17; TEMP 36.6; O2SAT 97
--- NOTE | 2025-02-05 14:41 | PC.SOCIAL ---
Outpatient orders faxed to [facility] scheduling at this time.
== END 2025-01-29 00:15 | disposition home or self-care (01) ==
PROVIDERS: Emergency Provider Family Medicine; PCP Family Medicine
DX: I35.0 Nonrheumatic aortic (valve) stenosis (principal); I35.8 Other nonrheumatic aortic valve disorders; I65.23 Occlusion and stenosis of bilateral carotid arteries; I10 Essential (primary) hypertension; Z79.01 Long term (current) use of anticoagulants; E78.5 Hyperlipidemia, unspecified; I24.0 Acute coronary thrombosis not resulting in myocardial infarction
CPT/HCPCS: 70450; 71045; 80053; 84484; 85025; 93005; 99285; J9999

== ENCOUNTER → 2025-02-05 13:24 | Outpatient (BNVA) | payer MEDICARE, OTHER, SELFPAY | PROVIDERS: PCP Family Medicine; Visit Provider Nurse Practitioner Family | DX: I25.10 Atherosclerotic heart disease of native coronary artery without angina pectoris (principal); I10 Essential (primary) hypertension; I65.29 Occlusion and stenosis of unspecified carotid artery; I35.0 Nonrheumatic aortic (valve) stenosis; I48.11 Longstanding persistent atrial fibrillation; Z79.01 Long term (current) use of anticoagulants; Z79.82 Long term (current) use of aspirin; R06.02 Shortness of breath; E78.5 Hyperlipidemia, unspecified; Z95.1 Presence of aortocoronary bypass graft; Z86.73 Personal history of transient ischemic attack (TIA), and cerebral infarction without residual deficits | CPT/HCPCS: 99213 ==

== ENCOUNTER 2025-02-14 09:14 | Outpatient (CLI) | payer MEDICARE, OTHER, SELFPAY ==
--- NOTE | 2025-02-14 09:19 | MR_ITS ---
WS: [id number] MRI HEAD WITHOUT CONTRAST TECHNIQUE: Sagittal T1, T2 axial, T2 axial FLAIR, axial and coronal T1 images, axial susceptibility weighted imaging, axial diffusion weighted images, and coronal T2 images were obtained. CLINICAL INFORMATION: TIA COMPARISON: CT 01/28/2025 FINDINGS: No evidence of restricted diffusion to suggest acute ischemia. Ventricular system and basal cisterns are patent. Moderate small vessel changes. Moderate parenchymal volume loss. Tiny chronic lacunar infarcts in the periventricular white matter and avila radiata bilaterally. A few associated tiny foci of hemosiderin. Small vessel changes in the kell. Normal vascular flow voids at the skull base. No extra-axial fluid collections. Mild mucosal thickening in the paranasal sinuses. Mastoid air cells are well aerated. Normal posterior nasopharynx Normal optic chiasm and pituitary infundibulum. Moderate symmetric atrophy temporal lobes and hippocampal formations. MR/MR head wo con* [id number] IMPRESSION: 1. No evidence of restricted diffusion to suggest acute ischemia. 2. Moderate small vessel changes with moderate parenchymal volume loss. 3. Several tiny chronic lacunar infarcts in the periventricular white matter a nd avila radiata. A few tiny punctate foci of associated hemosiderin. 4. Small vessel changes in the kell. 5. No other acute findings.
== END 2025-02-14 09:15 | disposition home or self-care (01) ==
PROVIDERS: PCP Family Medicine; Visit Provider Family Medicine
DX: I99.8 Other disorder of circulatory system (principal); G93.9 Disorder of brain, unspecified; I63.81 Other cerebral infarction due to occlusion or stenosis of small artery
CPT/HCPCS: 70551

== ENCOUNTER → 2025-04-10 10:12 | Outpatient (BNVA) | payer MEDICARE, OTHER, SELFPAY | PROVIDERS: PCP Family Medicine; Visit Provider Specialist | DX: M17.0 Bilateral primary osteoarthritis of knee (principal) | CPT/HCPCS: 20610; J1100; J2795; J3301; J9999 ==

== ENCOUNTER 2025-04-12 11:31 | Outpatient (CLI) | payer MEDICARE, OTHER, SELFPAY ==
--- NOTE | 2025-04-12 11:36 | USCV_ITS ---
Christianne Ellison Age: 89 Gender: F : 1935 Exam Date: 04/12/2025 11:50 Ordering Phys: Jo Hope SINTER FEEDER Technologist: DIMITRY [place] [facility] [place]: [place] HISTORY: Lower extremity swelling. PROCEDURES: Venous duplex imaging was performed in only the right lower extremity. The following venous structures were evaluated: common femoral vein, profunda vein, proximal portion of the greater saphenous vein, superficial femoral vein, and the popliteal vein. In addition, the posterior tibial and peroneal trunk were evaluated. FINDINGS: Normal 2-D Doppler and augmentation and compressibility throughout the lower extremity venous structures. Additional imaging through the proximal calf veins also reveals no thrombus. Limited evaluation of the greater saphenous vein is patent with no thrombus. CONCLUSIONS No DVT right lower extremity. Dr. Pauly Crain DO (Electronically Signed) Final Date: 12 April 2025 12:19 S
== END 2025-04-12 11:32 | disposition home or self-care (01) ==
LOC: RAD 11:32
PROVIDERS: PCP Family Medicine; Visit Provider Nurse Practitioner Family
DX: M79.89 Other specified soft tissue disorders (principal)
CPT/HCPCS: 93971

== ENCOUNTER → 2025-06-10 10:36 | Outpatient (BNVA) | payer MEDICARE, OTHER, SELFPAY | PROVIDERS: PCP Family Medicine; Visit Provider Specialist | DX: M17.0 Bilateral primary osteoarthritis of knee (principal) | CPT/HCPCS: 73560; 73565; 99214 ==

== ENCOUNTER → 2025-06-12 10:10 | Outpatient (BNVA) | payer MEDICARE, OTHER, SELFPAY | PROVIDERS: PCP Family Medicine; Visit Provider Nurse Practitioner Family | DX: I35.0 Nonrheumatic aortic (valve) stenosis (principal); I48.91 Unspecified atrial fibrillation; E78.5 Hyperlipidemia, unspecified; I10 Essential (primary) hypertension; I25.10 Atherosclerotic heart disease of native coronary artery without angina pectoris; I65.29 Occlusion and stenosis of unspecified carotid artery; Z79.01 Long term (current) use of anticoagulants; Z79.82 Long term (current) use of aspirin | CPT/HCPCS: 99214 ==

== ENCOUNTER 2025-06-18 14:38 | Outpatient (CLI) | payer MEDICARE, OTHER, SELFPAY ==
--- NOTE | 2025-06-18 15:00 | USCV_ITS ---
Christianne Ellison Age: 89 Gender: F : 1935 Exam Date: 06/18/2025 15:19 Ordering Phys: Dolores العلي Technologist: ARNEL Exam Location: [facility] [place] Indication: Moderate BP: 110 / 64 HR: 59 Rhythm: Sinus Technical Quality: Adequate MEASUREMENTS (Male / Female) Normal Values 2D ECHO LV Diastolic Diameter PLAX 5.0 cm 4.2 - 5.9 / 3.9 - 5.3 cm IVS Diastolic Thickness 0.8 cm 0.6 - 1.0 / 0.6 - 0.9 cm IVS Systolic Thickness 1.0 cm LVPW Diastolic Thickness 0.9 cm 0.6 - 1.0 / 0.6 - 0.9 cm LVPW Systolic Thickness 1.0 cm LVOT Diameter 2.0 cm LV Ejection Fraction 2D Teich 6.3 % LV Ejection Fraction MOD 4C 53.3 % LV Ejection Fraction MOD 2C 59.6 % LV Ejection Fraction 2C AL 64.4 % LA Diameter 3.8 cm RA Systolic Volume 4C AL 56.5 ml RA Systolic Volume 4C MOD 53.9 ml LA Sys Volume AL 90.3 cm cubed LA Sys Volume Index AL 56.5 cm cubed/m squared Aorta at Sinotubular Diameter 2.2 cm IVC Diameter 1.8 cm M-MODE LA Ao Ratio MM 2.3 AV Cusp Separation MM 0.7 cm DOPPLER AV Peak Velocity 345.0 cm/s LVOT Peak Velocity 151.0 cm/s AV Area Cont Eq vti 1.1 cm squared AV Area Cont Eq pk 1.3 cm squared MV Peak Velocity 150.0 cm/s MV Area PHT 2.2 cm squared Mitral E to A Ratio 0.9 TR Peak Velocity 246.0 cm/s TR Peak Gradient 24.2 mmHg TV Peak E Velocity 73.0 cm/s PV Peak Velocity 122.0 cm/s FINDINGS Left Ventricle Normal left ventricular size and systolic function, EF 64%. Normal left ventricular wall thickness. Indeterminate left ventricular diastolic function due to severe mitral annular calcification. Right Ventricle Normal right ventricular size and systolic function Right Atrium Severe right atrial enlargement Left Atrium Severe left atrial enlargement IA Septum Normal appearance of the interatrial septum Mitral Valve Mild calcification of the anterior mitral valve leaflet. Severe mitral annular calcification. Mild mitral valve stenosis with a mean gradient of 3 mmHg at a heart rate of 75 bpm. No mitral valve regurgitation Aortic Valve Aortic valve not well-visualized. Moderate aortic valve stenosis with a mean pressure gradient of 28 mmHg and aortic valve area 1.1 cm squared. No aortic valve regurgitation Tricuspid Valve Mild tricuspid valve regurgitation. Normal pulmonary artery pressure Pulmonic Valve Normal pulmonic valve structure and function Pericardium No pericardial effusion Aorta Normal size of aortic root IVC Normal IVC CONCLUSIONS 1. Normal biventricular cavity size and systolic function. Left ventricular ejection fraction normal at 64%. 2. Mild mitral valve stenosis 3. Moderate aortic valve stenosis 4. Normal pulmonary artery pressure 5. Severe biatrial enlargement Harinder Mohan MD, FACC (Electronically Signed) Final Date: 19 June 2025 20:13 S
== END 2025-06-18 14:39 | disposition home or self-care (01) ==
LOC: RAD 14:39
PROVIDERS: PCP Family Medicine; Visit Provider Nurse Practitioner Family
DX: I35.0 Nonrheumatic aortic (valve) stenosis (principal); I34.2 Nonrheumatic mitral (valve) stenosis; I51.7 Cardiomegaly
CPT/HCPCS: 93306

== ENCOUNTER 2025-06-19 13:07 | Emergency (ER) | payer MEDICARE, OTHER, SELFPAY ==
[2025-06-19 13:20] VITALS: BP 155/70; PULSE 65; RESP 17; TEMP 36.5; O2SAT 99; BMI 23.6
--- NOTE | 2025-06-19 14:38 | CTR_ITS ---
PROCEDURE INFORMATION: Exam: CT Cervical Spine Without Contrast Exam date and time: 06/19/2025 2:51 PM Age: 89 years old Clinical indication: Injury or trauma; Additional info: Fall TECHNIQUE: Imaging protocol: Computed tomography of the cervical spine without contrast. Radiation optimization: All CT scans at this facility use at least one of these dose optimization techniques: automated exposure control; mA and/or kV adjustment per patient size (includes targeted exams where dose is matched to clinical indication); or iterative reconstruction. COMPARISON: 1. Neck CTA dated 03/27/2024 2. CR XR cervical spine 3V* [id number] 01/23/2019 6:33 PM RADIATION DOSE METRICS: Total DLP (mGy-cm): 146.9 FINDINGS: Bones: Some straightening of the cervical spine. Chronic grade 1 anterolisthesis of C4 on C5. Multilevel degenerative disc disease, uncovertebral hypertrophy, and facet arthropathy. Canal stenosis at C6-C7. Lungs: Some scarring at the left lung apex. Stable 11 mm right thyroid lobe nodule which requires no follow-up. Soft tissues: Perhaps contusion and hematoma along the right side of the face. Right submandibular calcifications. CT/CT cervical spin wo con* [id number] IMPRESSION: No acute cervical spine fracture.
--- NOTE | 2025-06-19 14:38 | CTR_ITS ---
PROCEDURE INFORMATION: Exam: CT Head Without Contrast Exam date and time: 06/19/2025 2:51 PM Age: 89 years old Clinical indication: Injury or trauma; Additional info: Fall TECHNIQUE: Imaging protocol: Computed tomography of the head without contrast. Radiation optimization: All CT scans at this facility use at least one of these dose optimization techniques: automated exposure control; mA and/or kV adjustment per patient size (includes targeted exams where dose is matched to clinical indication); or iterative reconstruction. COMPARISON: MR head wo con* [id number] 02/14/2025 9:42 AM RADIATION DOSE METRICS: Total DLP (mGy-cm): 1013.98 FINDINGS: Brain: [id number] nonspecific supratentorial white matter hypoattenuation is seen, most likely chronic microangiopathic changes.No acute intracranial hemorrhage or mass effect. Cerebral ventricles: Within normal limits for age. Paranasal sinuses: Visualized sinuses demonstrate minimal mucosal thickening. Mastoid air cells: Visualized mastoid air cells are well aerated. Bones: Unremarkable. Soft tissues: Within normal limits. CT/CT head wo con* [id number] IMPRESSION: No acute intracranial hemorrhage or mass effect.
--- NOTE | 2025-06-19 14:39 | ED_ITS ---
HPI - Head Injury General: Chief complaint: Head Injury Stated complaint: bruising to face, hit head, post fall Time Seen by Provider: 06/19/25 13:20 Source: patient Mode of arrival: ambulatory Limitations: no limitations History of Present Illness: 9-year-old female states that she trippe d and fall just prior to arrival. States she did hit her face on the ground does have bruising to her nose and chin mainly complains of pain to her chin. States she also hit her head denies any loss conscious denies any headache is on Eliquis. Patient denies any neck pain denies any other injuries from the fall Related Data Home Medications ?Medication ?Instructions ?Recorded ?Confirmed coenzyme Q10 10 mg capsule 10 mg PO DAILY 08/22/1910/02 folic acid 1 mg tablet 1 mg PO DAILY 08/22/1906/12 omega-3 fatty acids 1,000 mg 1,000 mg PO DAILY 0 06/12/25 capsule vitamin B complex 1 tab PO DAILY 08/22/1910/02 cholecalciferol (vitamin D3) 50 50 mcg PO DAILY 06/12/25 mcg (2,000 unit) tablet (Vitamin D3) amlodipine 2.5 mg tablet 5 mg PO QDAY 06/12/25 Previous Rx's ?Medication ?Instructions ?Recorded aspirin 81 mg tablet,delayed 81 mg PO DAILY #90 tabs 0 10/26/21 release (Adult Low Dose Aspirin) Rollator walker #1 ea 04/16/24 amiodarone 200 mg tablet 100 mg (1/2 x 200 mg) PO VALERIA LY #90 08/09/24 tabs metoprolol tartrate 25 mg tablet 12.5 mg (1/2 x 25 mg) PO BID #90 08/10/24 tabs potassium chloride 20 mEq 20 meq PO DAILY #90 tabs 02/01 tablet,extended release rosuvastatin 40 mg tablet 40 mg PO DAILY #90 tabs 09/09 01/02 left medial lead quality control technician brace #1 ea 12/04/24 right lateral lead quality control technician brace #1 ea 12/04/24 furosemide 20 mg tablet 20 mg PO QAM PRN edema #90 t abs 02/05/25 apixaban 5 mg tablet (Eliquis) 5 mg PO BID #180 tabs 0 02/12/25 ezetimibe 10 mg tablet See Rx Instructions .Route 1 07/28/24 .COMPLEX #90 tabs Allergies Allergy/AdvReac Type Severity Reaction Status Date / Time No Known Allergies Allergy Verified 06/10/25 07:23 PFS ED PFSH: Medical History Tricuspid insufficiency Aortic stenosis with trileaflet valve Carotid stenosis Coronary artery disease Hypertension Hyperlipidemia Atrial fibrillation Anticoagulated with apixaban Surgical History History of carotid endarterectomy Hx of CABG History of knee surgery Family History Mother CAD (coronary artery disease) Diabetes Stroke Brother Cancer Diabetes Other Hypertension Denies family history of Clotting disorder Dementia Chronic kidney disease (CKD) Suicide Anesthesia complication Bleeding disorder Lung disease Social History Smoking and tobacco/nicotine status: never used tobacco/nicotine Alcohol intake: never Substance/Drug Use: never Physical Exam Const: COMMON NORMALS: no acute distress, patient oriented x3 and healthy appearing HENMT: COMMON NORMALS: normocephalic and atraumatic HEAD & SCALP: normocephalic and atraumatic OTHER: Bruising noted to chin Eye: COMMON NORMALS: Equal, round and reactive pupils present and EOMs intact bilaterally PUPIL: Yes Equal, round and reactive pupils present Neck/C-Spine: COMMON NORMALS: full ROM and supple CERVICAL SPINE: No Cervical spine tenderness Chest: COMMONS NORMALS: normal inspection of the chest Resp: COMMON NORMALS: normal respiratory effort Cardio: COMMON NORMALS: regular rate RATE: regular rate Extremity: COMMON NORMALS: normal to inspection and full ROM Neuro: COMMON NORMALS: patient oriented x3, moves all extremities and no focal motor deficits Psych: COMMON NORMALS: mental status grossly normal, Normal thought process present and cooperative THOUGHT PROCESS: Normal thought process present Skin: COMMON NORMALS: no rashes or lesions noted and no wounds GENERAL SKIN EXAM: no rashes or lesions noted Course Vital Signs: Vital signs: Vital Signs Temperature 97.7 F 06/19/25 13:20 Pulse Rate 65 06/19/25 13:20 Respiratory Rate 17 06/19/25 13:20 Blood Pressure 155/70 06/19/25 13:20 Pulse Oximetry 99 06/19/25 13:20 Oxygen Delivery Me thod Room Air 06/19/25 13:20 MDM - Head Injury Medcial Decision Making Patient presents here with facial pain after a fall. Differential includes intracerebral hemorrhage facial fracture, cervical spine fracture. Did CT her head face and C-spine did review the images myself there is no signs of any fractures. She has no other injuries here with her she is stable for discharge follow-up PCP return if worsening. Medical Records I reviewed the patient's medical records. Lab Data Radiology Impressions Cervical Spine CT 06/19/25 14:38 IMPRESSION: No acute cervical spine fracture. Head CT 06/19/25 14:38 IMPRESSION: No acute intracranial hemorrhage or mass effect. Face CT 06/19/25 15:14 IMPRESSION: No acute maxillofacial fracture is identified. All radiology interpretation(s) finalized by discharge Discharge Plan Discharge Patient Disposition: Home Clinical Impression: Closed head injury Qualifiers: Encounter type: initial encounter Qualified Code(s): S09.90XA - Unspecified injury of head, initial encounter Contusion of face Qualifiers: Encounter type: initial encounter Qualified Code(s): S00.83XA - Contusion of other part of head, initial encounter Fall Qualifiers: Encounter type: initial encounter Qualified Code(s): W19.XXXA - Unspecified fall, initial encounter Condition: Stable Prescriptions: No Action omega-3 fatty acids 1,000 mg capsule 1,000 mg PO DAILY coenzyme Q10 10 mg capsule 10 mg PO DAILY vitamin B complex Tablet 1 tab PO DAILY folic acid 1 mg tablet 1 mg PO DAILY amlodipine 2.5 mg tablet 5 mg PO QDAY (DME) left medial lead quality control technician brace See Rx Instructions .Route .MEDSUPPLY Qty: 1 0RF Rx Instructions: As directed (DME) right lateral lead quality control technician brace See Rx Instructions .Route .MEDSUPPLY Qty: 1 0RF Rx Instructions: As directed furosemide 20 mg tablet 20 mg PO QAM PRN (Reason: edema) Qty: 90 3RF aspirin [Adult Low Dose Aspirin] 81 mg tablet,delayed release (DR/EC) 81 mg PO DAILY Qty: 90 3RF (DME) Rollator walker See Rx Instructions .Route .MEDSUPPLY Qty: 1 0RF Rx Instructions: Rollator walker will help with her MRADL amiodarone 200 mg tablet 100 mg PO DAILY Qty: 90 3RF metoprolol tartrate 25 mg tablet 12.5 mg PO BID Qty: 90 3RF potassium chloride 20 mEq tablet extended release 20 meq PO DAILY Qty: 90 3RF rosuvastatin 40 mg tablet 40 mg PO DAILY Qty: 90 3RF Eliquis 5 mg tablet 5 mg PO BID Qty: 180 3RF ezetimibe 10 mg tablet See Rx Instructions .ROUTE .COMPLEX Qty: 90 3RF Dose Instruction: TAKE ONE TABLET BY MOUTH EVERY DAY Rx Instructions: TAKE ONE TABLET BY MOUTH EVERY DAY Vitamin D3 50 mcg (2,000 unit) Tablet 50 mcg PO DAILY Discharge Orders: Discharge ED (Routine); Ordered 06/19/25 Ordered By: Melanie Magallanes Referrals: Bryce Merritt MD [Primary Care Provider, [facility]] - 4-7 days Discharge Diet: Advance as tolerated Discharge Activity: Resume usual activity Patient Instructions: Head Injury (ED), Facial Contusion (ED) Print Language: Bahamian Coding Level of Care Code ED Delivery Representative for Stephanie Samuel
--- NOTE | 2025-06-19 15:14 | CTR_ITS ---
PROCEDURE INFORMATION: Exam: CT Maxillofacial Without Contrast Exam date and time: 06/19/2025 3:17 PM Age: 89 years old Clinical indication: Injury or trauma; Additional info: Fall TECHNIQUE: Imaging protocol: Computed tomography of the face without contrast. Radiation optimization: All CT scans at this facility use at least one of these dose optimization techniques: automated exposure control; mA and/or kV adjustment per patient size (includes targeted exams where dose is matched to clinical indication); or iterative reconstruction. COMPARISON: CT head wo con* [id number] 06/19/2025 2:51 PM RADIATION DOSE METRICS: Total DLP (mGy-cm): 606.2 FINDINGS: Paranasal sinuses: Sinus mucosal thickening with scattered retention cysts. Orbital cavities: Orbits are normal. Globes are unremarkable. Bones: No acute fracture. Soft tissues: Soft tissue contusion and hematoma. Right submandibular calcifications. CT/CT facial bones wo con* [id number] IMPRESSION: No acute maxillofacial fracture is identified.
[2025-06-19 15:54] VITALS: BP 157/66; PULSE 66; RESP 17; O2SAT 95
--- OUTSIDE RECORDS SUMMARY | 2025-06-19 17:57 | XMS_ITS | Continuity of Care Document ---
Author Organization J[facility] [place], [facility] ([facility]) Address [address] [place] [address] Care Team Providers Care Manager Branch Name Role Phone KALEB MERRITT Primary Care Provider Assessment No assessment recorded. Plan of Treatment Reminders Order Date Submit Date Provider Last Modified By Organization Details Last Modified Time Details Appointments OFFICE VISIT 15 2025 02:00P M Kaleb Merritt MD Not available Not available Not available Lab None recorded. Referral None recorded. Procedures None recorded. Surgeries None recorded. Imaging None recorded. Medication Orders mupirocin 2 % topical ointment 2024 025 [facility] [place], [address] [place], [address], 04/18/2025 16:35:57 Patient TargetsNo targets recorded. Patient Instructions Encounter Date Encounter Id Patient Instructions Last Modified By Organization Details Last Modified Time 04/18/2025 [id number] Keep covered and follow up for worsening [email or web address] Not available 04/18/2025 16:16:56 Reason for Referral None Reported. Results Created Date Observation Date Name Description Value Unit Range Abnormal Flag Note LastModifiedBy Organization Detail LastModifiedTime 04/12/2004/12/2025 US, baldo wisdom s, lower extre mity, compl ete No observ ation record ed. [facility] [address] [place], [address], 04/18/2025 15:08:57 05/10/2005/09/2025 US, lower extre mity, nonva scula r No observ ation record ed. [facility] [address] [place], [address], 05/20/2025 11:01:32 Result Notes None recorded. Problems Name Problem SNOMED Code Status Onset Date Resolution Date Notes Provider Name and Address Organization Details Recorded Time Hypercholes terolemia 42345079 Active 2022 YAIMA bond [facility] 13:02:13 Synovial cyst of left knee 4114161691382 02 Active 2022 YAIMA GRACIA [facility] 5 13:02:13 Essential hypertensio n 44902272 Active 2023 Kaleb Merritt MD [address] [place], [address], [facility] 5 10:38:35 Hyperlipide obey 31511182 Active 2023 YAIMA GRACIA [facility] 5 13:02:13 Carotid artery stenosis 54953599 Active 2023 YAIMA GRACIA [facility] 5 13:02:13 Basal cell carcinoma of skin 623441092 Active 2023 YAIMA bond [facility] 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 5 13:02:13 Iliotibial band friction syndrome of right knee 3966809873217 04 Active 2023 YAIMA bond [facility] 5 13:02:13 Moderate aortic valve stenosis 904975221 Active 2023 YAIMA GRACIAABDIAS bond [facility] 5 13:02:13 Atrial fibrillatio n 36998053 Active 2023 YAIMA GRACIAABDIAS bond [facility] 5 13:02:13 Osteoarthri tis 960373550 Active 2024 YAIMANaima bond [facility] 5 13:02:13 Transient ischemia 90905921 Active 2024 Kaleb Merritt MD [address] [place] [address], [phone], [facility] 10:27:51 Intermitten t vertigo 549147433 Active 2024 Kaleb Merritt MD [address] [place] [address], [phone], [facility] 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 10:28:36 Expressive dysphasia 859795037 Active 2024 Kaleb Merritt MD [address] [place] [address], [phone], [facility] 10:33:47 Localized swelling of right lower limb 8713050645552 9101 Active 2024 Kaleb Merritt MD [address] [place] [address], [phone], [facility] 16:04:37 Problem Notes None recorded. Procedures Surgical History Date Name Laterality Status Provider Name and Address Organization Details Recorded Time 04/12/20 Doppler ultrasonography of vein completed JERROD YO [facility] [place] 04/18/2025 15:08:32 03/15/20 24 Joint Inj [place]og- Shoulder, Hip, Knee completed Emanuel Marquez MD [address] [place] [address], [phone], [facility] [place] 03/16/2024 10:07:44 procedure on heart completed Merlene Robledo [facility] [place] 02/23/2024 10:50:51 Knee arthroscopy dx completed [facility] [place] 02/23/2024 10:51:17 carotid endarterectomy completed YAIMANaima GRACIA [facility] [place] 09/12/2024 09:30:34 [facility]12[facility] 09:31:23 Imaging Results None recorded. Procedure [...] completed Not Available Not Available Not Available amlodipin e 2.5 mg tablet TAKE 1 TABLET BY MOUTH EVERY DAY active Not Available Not Available No t Available ciproflox acin 250 mg tablet TAKE 1 TABLET BY MOUTH EVERY 12 HOURS FOR 7 DAYS 12/12 completed Not Available Not Available Not Available amlodipin e 5 mg tablet TAKE 1 TABLET BY MOUTH EVERY DAY active Not Available Not Available No t Available tramadol 50 mg tablet TAKE 1 [...] Not Available mupirocin 2 % topical ointment apply a small amount TO affected area TWICE DAILY active Not Available Not Available No t Available furosemid e 20 mg tablet TAKE 1 TABLET BY MOUTH EVERY MORNING NEEDED FOR EDEMA active Not Available Not Available No t Available polyethyl subhash glycol 3350 17 gram/dose oral powder mix 17 grams in 8 ounces of liquid AND drink ONCE DAILY NEEDED 05/11 completed Not Available Not Available Not Available albuterol sulfate HFA 90 mcg/actua tion aerosol inhaler INHALE TWO PUFFS BY MOUTH EVERY 4 HOURS NEEDED 02/14 completed Not Available Not Available Not Available cefdinir 300 mg capsule Take 1 capsule every 12 hours by oral route for 7 days. 02/12 completed Not Available Not Available Not Available Spironola ctone W/Hctz 25 mg-25 mg tablet daily 05/11 completed 0; Recorded 07/27/19 12:59PM by Yaima [...] aspirin daily 09/11 completed 0; Recorded 07/27/19 12:59PM by Yaima Gracia, Office Visit; Not Available Not Available Not Available Fish Oil two times daily 02/14 completed Recorded 02/09/20 9:46AM by Odessa Perea LPN, Office Visit; [...] 9; Recorded 11/19/19 4:18PM by Toma Armenta (i francine through Kaleb Merritt MD), Office Visit; Refill Quantity : 30; Capsule; Not Available Not Available Not Available Crestor daily 02/14 completed RM/CC; 9; Recorded 11/19/19 20 4:18PM by Toma Armenta (Authori francine through [...] No t Available Eliquis 5 mg tablet Take 1 tablet twice a day by oral route for 49 days. 2024 active 7 boxes of samples given to pt today. Not Available Not Available Not Available potassium chloride ER 20 mEq tablet,ex tended release TAKE ONE TABLET BY MOUTH DAILY active Not Available Not Available No t Available Vitals Date Recorded Body height Body mass index (BMI) Body weight Oxygen saturation Heart rate Respiratory rate Body temperature Systolic And Diastolic Provider Name and Address Organization Details Last Updated DateTime 5 154.94 cm 24.8 kg/m2 50842.6 g 98 % 70 /min 16 /min 98.2 [degF] 140/80 mm[Hg] Katelyn Harvey [facility] 16:08:26 Social History Question Answer Notes LastModified by Organizat ion Details LastModified Time Tobacco Smoking Status Never Smoker CANDIDA bond [facility] 02/14/2023 16:45:44 What Was The Date Of Your Most Recent Tobacco Screening? 06/19/2025 [email or web address] Information not available 06/19/2025 Sex: Unknown Functional Status Question Answer Note [...] Stones N Blood Diseases N Hyperthyroidism N Blood Transfusion N Breast Cancer N Depression N Hypothyroidism N Lung Disease N COPD N Defects or Inherited Disease N Developmental or Behavioral Disorders N Breast Problem N Difficulty Swallowing N Anesthesia Complications N Meniere's disease N Anxiety Disorder N Muscle, Joint, or Bone Problems N Vision or Eye Problems N Arthritis N Polyps N Infertility N Cancer N Varicosities N Stroke N Endometriosis N Bladder or Kidney Problems N High Cholesterol N Liver Disease N Fibromyalgia N Headaches N Kidney Disease N Allergies/Hayfever N Heart [...] N Heart Disease N Pulmonary Embolism N Pre-Eclampsia N Hypertension N Chronic Ear Infections N Osteoporosis N Chicken Pox N Autism Spectrum Disorder (ASD) N Thrombophilias N Gynecological HistoryNo gynecological history recorded. Obstetrics History GPAL:G 0 P 0 0 0 0 Immunizations Vaccine Type Date Status Note Provider Nam e and Address Organization Details Recorded Time Td (adult), 2 Lf tetanus toxoid, preservative free, adsorbed 6 completed Not Available [facility] 02/05/2023 02:39:27 Influenza, split virus, trivalent, preservative 1 completed Not Available [facility] 02/05/2023 02:39:28 Influenza, split virus, trivalent, preservative 4 completed Not Available [facility] 02/05/2023 02:39:28 Influenza, split virus, trivalent, preservative 3 completed Not Available [facility] 02/05/2023 02:39:29 Influenza, split virus, trivalent, preservative 8 completed Not Available [facility] 02/05/2023 02:39:29 pneumococcal polysaccharide PPV23 8 completed Not Available [facility] 02/05/2023 02:39:29 Influenza, adjuvanted, trivalent, PF 5 completed JAYE Esteves [facility] 05/01/2025 17:22:45 COVID-19, mRNA, LNP-S, PF, 30 mcg/0.3 mL dose 1 completed YAIMA GRACIA [facility] 09/12/2023 14:40:05 COVID-19, mRNA, LNP-S, PF, 30 mcg/0.3 mL dose 1 completed YAIMA GRACIA [facility] 09/12/2023 14:40:05 COVID-19, mRNA, LNP-S, PF, 30 mcg/0.3 mL dose, lizzie-sucrose 2 completed YAIMA GRACIA [facility] 09/12/2023 14:40:05 COVID-19, mRNA, LNP-S, bivalent, PF, 30 mcg/0.3 mL dose 2 completed YAIMA SAMIA [facility] 09/12/2023 14:40:05 Pneumococcal conjugate PCV 13 6 completed YAIMA SAMIA [facility] 09/12/2023 14:40:05 Influenza, high-dose, quadrivalent, PF 3 completed Narcisa Neves [facility] 11/14/2023 10:08:56 COVID-19, mRNA, LNP-S, PF, lizzie-sucrose, 30 mcg/0.3 mL 3 completed Narcisa Neves [facility] 11/14/2023 10:08:56 RSV, bivalent, protein subunit RSVpreF, diluent reconstituted, 0.5 mL, PF 3 completed YAIMA SAMIA [facility] 01/18/2024 14:43:52 COVID-19, mRNA, LNP-S, PF, 50 mcg/0.5 mL 4 completed Not Available [facility] 05/09/2025 14:34:53 RSV, bivalent, protein subunit RSVpreF, diluent reconstituted, 0.5 mL, PF 3 completed Not Available [facility] 05/09/2025 14:34:53 zoster recombinant 5 completed Not Available [facility] 05/09/2025 14:34:53 COVID-19, mRNA, LNP-S, PF, 10 mcg/0.2 mL 5 completed Not Available [facility] 05/09/2025 14:34:53 zoster recombinant 5 completed Not Available [facility] 05/09/2025 14:34:53 Influenza, adjuvanted, trivalent, PF 4 completed [facility]IDA bond [facility] 04/27/2024 12:43:48 Past Encounters Encounter ID Performer Location Encounter Start Date Encounter Closed Date Diagnosis/Indication Diagnosis SNOMED-CT Code Diagnosis ICD10 Code Diagnosis IMO Codes Diagnosis Note [id number] PAIGE RIOS [facility] ([facility]) [address] [address] 5 03/26/2025 14:02:21 03/26/2025 14:54:15 Swelling of right lower limb 715862193 M79.89 [id number] Nasal mucosa dry 1734394 2 J34.89 34753 Samples of [place] saline given to patient. [id number] BERNARDO VALDES APRN [facility] ([facility]) [address] [place] [address] 5 04/18/2025 16:03:50 04/18/2025 16:45:43 Open wound of right upper limb 8973882206 7108 S41.111A [id number] Health Concerns Section Related Observation LastModified by Organization Detai ls LastModified Time None Recorded Concern Status LastModified by Organization Details LastModified Time None Recorded Payers Encounter Date Sequence Insurance Name Policy Number Policy Kaufman Covered Member ID Kaufman Member ID Guarantor Name 04/18/2025 2 [facility] [email or web address] PLAN D AND F (MEDICARE SUPPLEMENT) [id number] Mrs Micha Connell Scot [id number] Christianne Ellison 04/18/2025 1 [employer] - MEDICARE-[address] [facility] (MEDICARE) Christianne Ellison [id number] Christianne Ellison Notes Date Note Type Note Provider Name and Address Organization Details Recorded Time 04/18/2025 text/html Skin LesionRepor gaby by Patient walk in patientpatient is here today for a little skin tear and she is on eliquis, patient said that it keeps bleeding she did this 2 days ago BERNARDO VALDES, PHOTOGRAPHER ASSISTANT [address] [place], [address], [facility] [place] 04/18/2025 16:17:52 OBGyn Episode No OBEpisode recorded.
--- OUTSIDE RECORDS SUMMARY | 2025-06-19 17:57 | XMS_ITS | Data Portability ---
Author Organization JAYE Loy[facility] [place] [facility] Address [address] [facility] [address] [place] [address] Care Team Providers Care Hide Salter Name Role Phone KALEB MERRITT Primary Care Provider Assessment Encounter Date Assessment Date Assessment LastModified by Organization Details LastModified Time 03/26/2025 03/26/2025 Patient here today regarding some swelling in her leg. She has had open heart surgery in the past and had a vein harvested from her right leg. She has swelling by the medial aspect of her right knee. Mild tenderness. Encouraged her to continue wearing compression stockings. Will schedule for ultrasound. This does feel like a collection of fluid of some sort. She has a known Norris's cyst. Not available 03/26/2025 14:46:34 Plan of Treatment Reminders Order Date Submit Date Provider Last Modified By Organization Details Last Modified Time Details Appointments OFFICE VISIT 15 2025 02:00P Yakov Merritt MD Not available Not available Not available Lab None recorded. Referral None recorded. Procedures None recorded. Surgeries None recorded. Imaging US, lower extremity , nonvascul ar - 11190 Rt leg 2024 025 [facility], [address] [place], [address], 05/10/2025 21:33:24 US, duplex, venous, lower extremity , complete 2024 025 [facility], [address] [place], [address], 04/02/2025 15:57:38 Medication Orders mupirocin 2 % topical ointment 2024 025 [facility] [place], [address] [place], [address], 04/18/2025 16:35:57 Patient TargetsNo targets recorded. Patient Instructions Encounter Date Encounter Id Patient Instructions Last Modified By Organization Details Last Modified Time 03/26/2025 [id number] Call or return for questions or concerns. Not available 03/26/2025 14:47:09 04/18/2025 [id number] Keep covered and follow up for worsening [email or web address] Not available 04/18/2025 16:16:56 Reason for Referral None Reported. Results Created Date Observation Date Name Description Value Unit Range Abnormal Flag Note LastModifiedBy Organization Detail LastModifiedTime 04/12/2004/12/2025 US, duple x, venou s, lower extre mity, compl ete No observ ation record ed. [facility] [address] [place], [address], 04/18/2025 15:08:57 05/10/2005/09/2025 US, lower extre mity, nonva scula r No observ ation record ed. [facility] [address] [place], [address], 05/20/2025 11:01:32 Result Notes None recorded. Problems Name Problem SNOMED Code Status Onset Date Resolution Date Notes Provider Name and Address Organization Details Recorded Time Hypercholes terolemia 00214413 Active 2022 YAIMA bond [facility] 5 13:02:13 Synovial cyst of left knee 0019809042465 02 Active 2022 YAIMA bond [facility] 5 13:02:13 Essential hypertensio n 35623627 Active 2023 Kaleb Merritt MD [address] [place], [address], [facility] 5 10:38:35 Hyperlipide obey 25226210 [facility] 13:02:13 Carotid artery stenosis 85670351 Active 2023 [facility]A [facility]ODRIS [facility] 5 13:02:13 Basal cell carcinoma of skin 628554827 Active 2023 [facility] 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 5 13:02:13 Iliotibial band friction syndrome of right knee 2941884592349 04 Active 2023 YAIMA GRACIA [facility] 5 13:02:13 Moderate aortic valve stenosis 534949761 Active 2023 YAIMA MCLEODRIS [facility] 5 13:02:13 Atrial fibrillatio n 64962478 Active 2023 YAIMA MCLEODRIS [facility] 5 13:02:13 Osteoarthri tis 338227175 Active 2024 YAIMA MCLEODRIS [facility] 5 13:02:13 Transient ischemia 27738792 Active 2024 Kaleb Merritt MD [address] [place] [address], [phone], [facility] 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 Procedures Surgical History Date Name Laterality Status Provider Name and Address Organization Details Recorded Time 04/12/20 25 Doppler ultrasonography of vein completed JERROD YO [facility] 04/18/2025 15:08:32 03/15/20 24 Joint Inj Kenalog- Shoulder, Hip, Knee completed Emanuel Marquez MD [address] [place] [address], [phone], [facility], LTanoLTanoCTano 03/16/2024 10:07:44 procedure on heart completed Merlene Robledo [facility] [place] 02/23/2024 10:50:51 Knee arthroscopy dx completed [facility] 02/23/2024 10:51:17 carotid endarterectomy completed [facility] 09/12/2024 09:30:34 cataract surgery completed [facility]/12/2024 09:31:23 Imaging Results None recorded. Procedure [...] weight Oxygen saturation Heart rate Respiratory rate Systolic And Diastolic Provider Name and Address Organization Details Last Updated DateTime 5 154.94 cm 25.1 kg/m2 80089.7 9 g 99 % 66 /min 16 /min 146/58 mm[Hg] JERROD YO [facility] 5 14:24:06 Date Recorded Body height Body mass index (BMI) Body weight Oxygen saturation Heart rate Respiratory rate Body temperature Systolic And Diastolic Provider Name and Address Organization Details Last Updated DateTime 5 154.94 cm 24.8 kg/m2 12803.6 g 98 % 70 /min 16 /min 98.2 [degF] 140/80 mm[Hg] Katelyn Harvey [facility] 5 16:08:26 Date Recorded Body height Body mass index (BMI) Body weight Oxygen saturation Heart rate Systolic And Diastolic Provider Name and Address Organization Details Last Updated DateTime 5 154.94 cm 24.4 kg/m2 22552.4 2 g 98 % 64 /min 124/78 mm[Hg] YAIMA GRACIA [facility] 5 15:21:51 Date Recorded Body height Body mass index (BMI) Body weight Oxygen saturation Heart rate Body temperature Systolic And Diastolic Provider Name and Address Organization Details Last Updated DateTime 5 154.94 cm 24.4 kg/m2 09082.4 2 g 98 % 65 /min 98.3 [degF] 156/80 mm[Hg] Adenike De La Cruz [facility] 5 13:20:33 Social History Question Answer Notes LastModified by [employer] Details LastModified Time Tobacco Smoking Status Never Smoker CANDIDA bond [facility] 02/14/2023 16:45:44 What Was The Date Of Your Most Recent Tobacco Screening? 06/19/2025 [email or web address] Information not available 06/19/2025 Sex: Unknown Functional Status Question Answer Note LastModified by [employer] Details LastModified Time Do you use any [...] Cancer N Blood Transfusion N Hypothyroidism N Depression N COPD N Lung Disease N Defects or Inherited Disease N Developmental [...] preservative free, adsorbed 6 completed Not Available [facility] 02/05/2023 02:39:27 Influenza, split virus, trivalent, preservative 1 completed Not Available [facility] 02/05/2023 02:39:28 Influenza, split virus, trivalent, preservative 4 completed Not Available [facility] 02/05/2023 02:39:28 Influenza, split virus, trivalent, preservative 3 completed Not Available [facility] 02/05/2023 02:39:29 Influenza, split virus, trivalent, preservative 8 completed Not Available [facility] 02/05/2023 02:39:29 pneumococcal polysaccharide PPV23 8 completed Not Available [facility] 02/05/2023 02:39:29 Influenza, adjuvanted, trivalent, PF 5 completed [facility] 05/01/2025 17:22:45 COVID-19, mRNA, LNP-S, PF, 30 mcg/0.3 mL dose 1 completed [facility] 09/12/2023 14:40:05 COVID-19, mRNA, LNP-S, PF, 30 mcg/0.3 mL dose 1 completed [facility] 09/12/2023 14:40:05 COVID-19, mRNA, LNP-S, PF, 30 mcg/0.3 mL dose, lizzie-sucrose 2 completed [facility] 09/12/2023 14:40:05 COVID-19, mRNA, LNP-S, bivalent, PF, 30 mcg/0.3 mL dose 2 completed [facility] 09/12/2023 14:40:05 Pneumococcal conjugate PCV 13 6 completed [facility] 09/12/2023 14:40:05 Influenza, high-dose, quadrivalent, PF 3 completed Narcisa bond, [facility] 11/14/2023 10:08:56 COVID-19, mRNA, LNP-S, PF, lizzie-sucrose, 30 mcg/0.3 mL 3 completed [facility] 11/14/2023 10:08:56 RSV, bivalent, protein subunit RSVpreF, diluent reconstituted, 0.5 mL, PF 3 completed YAIMA bond [facility] 01/18/2024 14:43:52 COVID-19, mRNA, LNP-S, PF, 50 mcg/0.5 mL 4 completed Not Available [facility] 05/09/2025 14:34:53 RSV, bivalent, protein subunit RSVpreF, diluent reconstituted, 0.5 mL, PF 3 completed Not Available [facility] 05/09/2025 14:34:53 zoster recombinant 5 completed Not Available [facility] 05/09/2025 14:34:53 COVID-19, mRNA, LNP-S, PF, 10 mcg/0.2 mL 5 completed Not Available [facility] 05/09/2025 14:34:53 zoster recombinant 5 completed Not Available [facility] 05/09/2025 14:34:53 Influenza, adjuvanted, trivalent, PF 4 completed CANDIDA bond [facility] 04/27/2024 12:43:48 Past Encounters Encounter ID Performer Location Encounter Start Date Encounter Closed Date Diagnosis/Indication Diagnosis SNOMED-CT Code Diagnosis ICD10 Code Diagnosis IMO Codes Diagnosis Note [id number] Kaleb Merritt MD [facility] ([facility]) [address] [place] [id number] 5 02/14/2023 16:24:02 02/14/2023 17:52:12 Benign essential hypertension 8445074 I10 Hypercholesterolemia 136 24535 E78.00 Constipation 35841384 K5 9.00 Impacted cerumen 3286885 6 H61.22 cleansed with peroxide and water and wax removed. [id number] Emanuel Marquez MD [facility] ([facility]) [address] [place] [id number] 5 04/28/2023 10:16:35 04/28/2023 15:24:20 Osteoarthritis of left knee joint 2181728288 60260 M17.12 Likely osteoarthr itis contributi ng to [...] with PCP if symptoms do not improve. [id number] Kaleb Merritt MD [facility] ([facility]) [address] [place] [id number] 5 05/11/2023 11:33:23 05/11/2023 13:07:06 Osteoarthritis of left knee joint 1618278056 23457 M17.12 Benign ess ential hypertension 0752598 I10 Synovial c yst of left knee 7413790546 47819 M71.22 [id number] JOAQUÍN ODONNELL [facility] ([facility]) [address] [place] [id number] 5 07/27/2023 15:59:46 07/27/2023 18:50:01 Acute upper respiratory infection 48335305 J06.9 Will start doxycyclin e today. Discussed avoiding cough suppressan ts. Recommend a follow up with PCP in 2 weeks. If chest pain or severe SOB occurs, should go to ED. Patient verbalizes understand ing. [id number] JO ROSAS POT PRESS OPERATOR [facility] ([facility]) [address] [place] [id number] 5 07/29/2023 10:45:49 07/29/2023 12:58:58 Dyspnea 918938866 R06.00 [id number] NATALYA JAUREGUI POT PRESS OPERATOR [facility] ([facility]) [address] [place] [id number] 5 08/22/2023 17:43:27 08/22/2023 18:42:36 Lesion of skin of face 5324982286 06 L98.9 Discussed f/u with dermatolog y for further evaluation . Referral sent today. [id number] Kaleb Merritt MD [facility] ([facility]) [address] [place] [id number] 5 09/06/2023 09:35:11 09/07/2023 09:47:57 Benign essential hypertension 4491849 I10 Hypercholesterolemia 136 54904 E78.00 [id number] Kaleb Merritt MD [facility] ([facility]) [address] [place] [address] [id number] 5 09/12/2023 14:12:47 09/12/2023 15:58:12 Essential hypertension 84827140 I10 Hyperlipidemia 69829719 E78.5 [id number] PAIGE CHEEMA [facility] ([facility]) [address] [place] [id number] 5 11/14/2023 10:06:39 11/14/2023 12:59:31 Skin lesion 81779193 L98.9 Keep appt as scheduled with Dr. Pereira, Dermatolog y.It is ok to perform water aerobics. [id number] Kaleb Merritt MD [facility] ([facility]) [address] [place] [address] [id number] 5 01/18/2024 14:43:11 01/18/2024 16:12:54 Benign essential hypertension 2495972 I10 stable at this time. Hyperlipidemia 64889374 E78.5 continue present meds. Carotid ar graham stenosis 46407518 I65.29 >70% blockage on left. She had right CEA in 2005. Planning on angiogram to evaluate further. Basal cell carcinoma of skin 042191708 C44.91 followed by dermatolog y here. [id number] Emanuel Marquez MD [facility] ([facility]) [address] [place] [id number] 5 02/23/2024 10:39:37 02/23/2024 11:35:45 Osteoarthritis of right knee joint 4619054379 37365 M17.11 Likely osteoarthr itis based on exam and history. Start diclofenac gel. Continue range of motion exercises. Iliotibial band friction syndrome of right knee 7197107836 89064 M76.31 Component of IT band syndrome is likely contributi ng to the patient's discomfort . Recommend the patient undergo physical therapy. The patient was agreeable with this plan. [id number] PAIGE CHEEMA [facility] ([facility]) [address] [place] [address] [id number] 5 02/27/2024 11:28:38 02/27/2024 13:32:05 Pain of right knee joint 9134865458 40743 M25.561 OA noted on xray but nothing acute. Pt trialed voltarin with no relief of symptoms. Now has swelling to right lower leg, continued pain with movement. Discussed with PCP, Dr. Merritt. agree on MRI and f/u with him after.Pt does have some calf pain. Is anticoagul ated due to a-fib. [id number] Emanuel Marquez MD [facility] ([facility]) [address] [place] [address] [id number] 5 03/15/2024 16:51:00 03/17/2024 23:19:19 Osteoarthritis of right knee joint 6266300317 05874 M17.11 The patient continues to have significan t discomfort . The patient has a MRI scheduled in 2 and half weeks. Patient wanted to proceed with injection today. Recommend continuing physical therapy and exercises. Pes anseri nus bursitis 89237409 M70.51 [id number] PAIGE CHEEMA [facility] ([facility]) [address] [place] [address] [id number] 5 04/18/2024 17:17:21 04/18/2024 18:14:05 Edema of lower extremity 022277048 R60.0 Will give pt lasix for next 5 days. Start tomorrow morning. Elevate the legs and continue to wear compressio n socks daily. Keep appt as scheduled next week with cardiology and PCP [id number] Kaleb Merritt MD [facility] ([facility]) [address] [place] [id number] 5 04/27/2024 11:17:55 04/28/2024 09:42:41 Benign essential hypertension 7636529 I10 stable at this time. Hypercholesterolemia 136 78175 E78.00 Hyperlipidemia 83010346 E78.5 continue present meds. Essential hypertension 77302371 I10 Carotid ar graham stenosis 50252689 I65.29 80% blockage on the left. Has an appt coming up with vascular surgeon. Osteoarthr itis of left knee joint 6766969927 95045 M17.12 She is not wanting to have knee surgery. She is getting PT and injections . Osteoarthr itis of right knee joint 1270040177 10106 M17.11 Will order a cane for use for ambulation . Moderate a ortic valve stenosis 362434157 I35.0 followup Echocardio gram is pending. Atrial fibrillation 4943 6004 I48.91 [id number] Kaleb Merritt MD [facility] ([facility]) [address] [place] [id number] 5 2024 11:07:18 2024 15:24:05 Constipation 13161215 K59.00 will try metamucil. Atrial fibrillation 4943 6004 I48.91 Benign ess ential hypertension 1832493 I10 stable at this time. Carotid ar graham stenosis 53147272 I65.29 moderate. Moderate a ortic valve stenosis 802150173 I35.0 Stable. Moderate to severe. Osteoarthritis 045768354 M19.90 Pain of bi lateral knee joints 9272048891 13444 M25.561 M25.258 [id number] PAIGE VILLA [facility] ([facility]) [address] [place] [address] [id number] 5 11/21/2024 09:38:30 11/21/2024 10:09:33 Dysuria 54227081 R30.0 [id number] Discussed to take antibiotic as prescribed until [...] concernsPa tient verbalized understand ing of plan. [id number] PAIGE CHEEMA [facility] ([facility]) [address] [place] [address] [id number] 5 11/30/2024 17:58:14 12/04/2024 13:24:27 Dysuria 80866875 R30.0 21268 UA results reviewed and discussed with pt. We will start antibiotic s. Pt will increase oral fluids and can use cranberry. Return to office with no improvemen t or any problems. Go to ER with severe worsening or severe problems.W e will obtain urine culture.Re viewed chart and lab results from 11/21 visit [id number] PAIGE CHEEMA [facility] ([facility]) [address] [place] [address] [id number] 5 12/12/2024 10:16:35 12/12/2024 11:04:22 Dysuria 66210545 R30.0 33212 UTI cleared from last infection. Pt has no side effects from cipro. No changes today. [id number] Kaleb Merritt MD [facility] ([facility]) [address] [place] [address] [id number] 5 01/02/2025 14:16:16 01/02/2025 15:23:51 Atrial fibrillation 13080097 I48.91 Eliquis samples given. Benign ess ential hypertension 8008415 I10 stable at this time. Osteoarthritis 639941745 M19.90 bilateral knee pain. Followed by orthopedic s. Excessive cerumen in ear canal 325562191 H61.23 64472128 [id number] Kaleb Merritt MD [facility] ([facility]) [address] [place] [address] [id number] 5 01/16/2025 15:41:52 01/17/2025 17:13:55 Benign essential hypertension 5723985 I10 stable at this time. Atrial fibrillation 4943 6004 I48.91 regular rhythm today. Carotid ar graham stenosis 51542441 I65.29 moderate. Moderate a ortic valve stenosis 304508568 I35.0 Stable. Moderate to severe. [id number] PAIGE VILLA [facility] ([facility]) [address] [place] [address] [id number] 5 01/29/2025 09:47:38 01/29/2025 12:28:30 Dysuria 05836667 R30.0 57061 Discussed to take antibiotic as prescribed until completedU rine culture ordered - will notify of any resultsEdu cated patient on increasing PO fluids of water, decreasing caffeine (coffee) and sugary drinks. Return to clinic if any changes, any worsening, any concerns. Patient will be scheduled for follow up with PCP on Tuesday.Tracey iegume verbalized understand ing of plan. [id number] Kaleb Merritt MD 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 Expressive dysphasia 229 274311 R47.01 24440 Essential hypertension 51315242 I10 64067 continue present meds as it was on 2.5mg at home. [id number] PAIGE RIOS [facility] ([facility]) [address] [place] [address] 5 03/26/2025 14:02:21 03/26/2025 14:54:15 Swelling of right lower limb 035933767 M79.89 63047011 Nasal mucosa dry 8564585 2 J34.89 57052 Samples of [place] saline given to patient. [id number] BERNARDO VALDES APRN [facility] ([facility]) [address] [place], [place] [address] 04/18/2025 16:03:50 04/18/2025 16:45:43 Open wound of right upper limb 2616112178 7108 S41.111A 38530588 [id number] Kaleb Merritt MD [facility] ([facility]) [address] [place], [place] [address] 05/01/2025 14:58:21 05/01/2025 16:21:42 Carotid artery stenosis 27350225 I65.29 moderate. Essential hypertension 07808380 I10 97812 continue present meds as it was on 2.5mg at home. Moderate a ortic valve stenosis 768717241 I35.0 Stable. Moderate to severe. Atrial fibrillation 4943 6004 I48.91 regular rhythm today. Osteoarthritis 561925934 M19.90 bilateral knee pain. Followed by orthopedic s. Localized swelling of right lower limb 2100003730 4131982 R22.41 [id number] will order regular ultrasound of soft tissue of medial right leg. [id number] Kaleb Merritt MD [facility] ([facility]) [address] [place], [place] [address] 5 05/09/2025 14:34:44 05/09/2025 15:45:34 Localized swelling of right lower limb 4153374132 7354300 R22.41 [id number] will order regular ultrasound of soft tissue of medial right leg. [id number] PAIGE VILLA [facility] ([facility]) [address] [place] [address] 06/19/2025 13:00:46 06/19/2025 13:39:28 Accidental fall 090562866 W19.XXXA [id number] On Eliquis. Will send to ER for further evaluation and imaging. Patient will have son transport her for this. Health Concerns Section Related Observation LastModified by Organization Detai ls LastModified Time None Recorded Concern Status LastModified by Organization Details LastModified Time None Recorded Advance Directives Directive None Recorded Payers Insurance Date Sequence Insurance Name Policy Number Policy Kaufman Covered Member ID Kaufman Member ID Guarantor Name 03/26/2025 1 MEDICARE [place]: [facility] Christianne Ellison [id number] Christianne Ellison 06/19/2025 2 [facility] RA[facility] PLAN D AND F (MEDICARE SUPPLEMENT) [id number] Mrs Micha Connell Scot [id number] Christianne Ellison 06/19/2025 [place] - [place] A - [facility] (MEDICARE) Christianne Ellison [id number] Christianne Ellison 06/19/2025 1 [place] [facility] - MEDICARE-[address] [facility] (MEDICARE) Christianne Ellison [id number] Christianne Ellison 03/26/2025 [place]: S Christianne Ellison [id number] Christianne Ellison Notes Date Note Type Note Provider Name and Address Organization Details Recorded Time 03/26/2025 text/html EdemaReported by PatientHPIFor quality, patient reportspainful. For context, patient reportsprior vein harvestandprior bypass surgery. For location, patient reportsrle. For severity, patient reportsmoderate. For duration, patient reportsconstant. For onset/timing, patient reportsstarted 7 years ago. PAIGE RIOS [address] [place], [address], [facility] 03/26/2025 14:47:24 04/18/2025 text/html Skin LesionRepor gaby by Patient walk in patientpatient is here today for a little skin tear and she is on eliquis, patient said that it keeps bleeding she did this 2 days ago BERNARDO VALDES APRN [address] [place] [address], [phone], [facility] 04/18/2025 16:17:52 05/01/2025 text/html Hypertension IM/FMReported by PatientHPIFor quality, patient reportshere for check-up. For onset/timing, patient reportsgradual onset. For associated symptoms, patient reportsno shortness of breath,no palpitations, andno chest pain. HyperlipidemiaReporte d by PatientHPIFor duration, patient reportschronic. For risk factors, patient reportshypertension. For adherence to treatment plan, patient reportstakes medications as prescribed. Has a spot on her right leg that she describes that is soft and swelling. She saw Jo for this too and US was ordered. Kaleb Merritt MD [address] [place] [address], [phone], [facility] 05/01/2025 16:11:07 06/19/2025 text/html ROS as noted in the HPI walk inx30 minutes ago, caught foot and fell on sidewalk hitting face on cement- no vision change or TONEY. MARIELENA ROCA, PAIGE [address] [place] [address], [phone], [facility] 06/19/2025 13:36:50 OBGyn Episode No OBEpisode recorded.
--- OUTSIDE RECORDS SUMMARY | 2025-06-19 17:58 | XMS_ITS | Continuity of Care Document ---
Author Organization Gibson Da Silva, [facility] ([facility]) Address [address] [place] [address] Care Team Providers Care Tobacco Checkout Clerk Name Role Phone AKLEB MERRITT Primary Care Provider Assessment Encounter Date [...] None recorded. Surgeries None recorded. Imaging US, duplex, venous, lower extremity , complete 2024 025 [employer] [facility], [address] [place] [address], [id number], 04/02/2025 15:57:38 Medication Orders None recorded. Patient TargetsNo targets recorded. Patient Instructions Encounter Date Encounter Id Patient Instructions Last Modified By Organization Details Last Modified Time 03/26/2025 [id number] Call or return for questions or concerns. Not available 03/26/2025 14:47:09 Reason for Referral None Reported. Results Created Date Observation Date Name Description Value Unit Range Abnormal Flag Note LastModifiedBy Organization Detail LastModifiedTime 04/12/20 25 04/12/2025 US, duple x, venou s, lower extre mity, compl ete No observ ation record ed. [facility] [address] [place], [address], 04/18/2025 15:08:57 05/10/2005/09/2025 US, lower extre mity, nonva scula r No observ ation record ed. [facility] [address] [place], [address], 05/20/2025 11:01:32 Result Notes None recorded. Problems Name Problem SNOMED Code Status Onset Date Resolution Date Notes Provider Name and Address Organization Details Recorded Time Hypercholes terolemia 96184155 Active 2022 YAIMA bond [facility] 5 13:02:13 Synovial cyst of left knee 5650106822145 02 Active 2022 YAIMA bond [facility] 13:02:13 Essential hypertensio n 65710348 Active 2023 Kaleb Merritt MD [address] [place], [address], [facility] 5 10:38:35 Hyperlipide obey 27097488 Active 2023 YAIMA bond [facility] 5 13:02:13 Carotid artery stenosis 48712639 Active 2023 YAIMA bond [facility] 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 5 13:02:13 Iliotibial band friction syndrome of right knee 1250343647957 04 Active 2023 YAIMA MCLEODRIS null, [facility] 5 13:02:13 Moderate aortic valve stenosis 875889348 Active 2023 YAIMA MCLEODRIS null, [facility] 5 13:02:13 Atrial fibrillatio n 81833520 Active 2023 YAIMA SYED null, [facility] 5 13:02:13 Osteoarthri tis 835510575 Active 2024 YAIMA SYED null, [facility] 5 13:02:13 Transient ischemia 27483576 Active 2024 Kaleb Merritt MD [address] [place] [address], [phone], [facility] 5 10:27:51 Intermitten t vertigo 814413754 Active 2024 Kaleb Merritt MD [address] [place] [address], [address], [facility] 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 5 10:28:36 Expressive dysphasia 111724515 Active 2024 Kaleb Merritt MD [address] [place] [address], [address], [facility] 10:33:47 Localized swelling of right lower limb 2316083219453 9101 Active 2024 Kaleb Merritt MD [address] [place], [address], [facility], LOlegCTano 16:04:37 Problem Notes None recorded. Procedures Surgical History Date Name Laterality Status Provider Name and Address Organization Details Recorded Time 04/12/20 25 Doppler ultrasonography of vein completed JERROD YO [facility], LTanoLTanoCTano 04/18/2025 15:08:32 03/15/20 24 Joint Inj Kenalog- Shoulder, Hip, Knee completed Emanuel Marquez MD [address] [place], [address], [facility], AmarilisCTano 03/16/2024 10:07:44 procedure on heart completed [facility], [place] 02/23/2024 10:50:51 Knee arthroscopy dx completed [facility], LTanoLTanoCTano 02/23/2024 10:51:17 carotid endarterectomy completed [facility] MARYVALE SAMIA [facility], MeiLTanoCTano 09/12/2024 09:30:34 cataract surgery completed [facility], LTanoLTanoCTano 09/12/2024 09:31:23 Imaging Results None recorded. Procedure [...] completed 0; Recorded 07/27/19 12:59PM by Yaima Syed, Office Visit; Not Available Not Available Not [...] completed 0; Recorded 07/27/19 12:59PM by Yaima Syed, Office Visit; Not Available Not Available Not Available Fish Oil two times daily 02/14 completed Recorded 02/09/20 16 9:46AM by Odessa Perea LPN, Office Visit; Not Available Not Available Not Available metoprolo l tartrate two times daily 02/14 completed 0; Recorded 07/27/19 23 12:59PM by Yaima Syed, Office Visit; Not Available Not Available Not Available amiodaron e daily 02/14 completed 0; Recorded 07/27/19 12:59PM by Yaima Syed, Office Visit; Not Available Not Available Not Available furosemid e daily, as needed 02/14 completed 0; Recorded 07/27/19 12:59PM by Yaima Syed, Office Visit; Not Available Not Available Not [...] Updated DateTime 5 154.94 cm 25.1 kg/m2 76348.7 9 g 99 % 66 /min 16 /min 146/58 mm[Hg] JERROD YO [facility] 5 14:24:06 Social History Question Answer Notes LastModified by Organizat ion Details LastModified Time Tobacco Smoking Status Never Smoker CANDIDA bond [facility] 02/14/2023 16:45:44 What Was The Date [...] preservative free, adsorbed 6 completed Not Available [facility] 02/05/2023 02:39:27 Influenza, split virus, trivalent, preservative 1 completed Not Available [facility] 02/05/2023 02:39:28 Influenza, split virus, trivalent, preservative 4 completed Not Available [facility] 02/05/2023 02:39:28 Influenza, split virus, trivalent, preservative 3 completed Not Available [facility] 02/05/2023 02:39:29 Influenza, split virus, trivalent, preservative 8 completed Not Available [facility] 02/05/2023 02:39:29 pneumococcal polysaccharide PPV23 8 completed Not Available [facility] 02/05/2023 02:39:29 Influenza, adjuvanted, trivalent, PF 5 [facility] 05/01/2025 17:22:45 COVID-19, mRNA, LNP-S, PF, 30 mcg/0.3 mL dose 1 completed [facility] 09/12/2023 14:40:05 COVID-19, mRNA, LNP-S, PF, 30 mcg/0.3 mL dose 1 completed [facility] 09/12/2023 14:40:05 COVID-19, mRNA, LNP-S, PF, 30 mcg/0.3 mL dose, lizzie-sucrose 2 completed [facility] 09/12/2023 14:40:05 COVID-19, mRNA, LNP-S, bivalent, PF, 30 mcg/0.3 mL dose 2 completed [facility] 09/12/2023 14:40:05 Pneumococcal conjugate PCV 13 6 completed [facility] 09/12/2023 14:40:05 Influenza, high-dose, quadrivalent, PF 3 completed [facility] 11/14/2023 10:08:56 COVID-19, mRNA, LNP-S, PF, lizzie-sucrose, 30 mcg/0.3 mL 3 completed [facility] 11/14/2023 10:08:56 RSV, bivalent, protein subunit RSVpreF, diluent reconstituted, 0.5 mL, PF 3 completed YAIMA bond, [facility] 01/18/2024 14:43:52 COVID-19, mRNA, LNP-S, PF, 50 mcg/0.5 mL 4 completed Not Available [facility] 05/09/2025 14:34:53 RSV, bivalent, protein subunit RSVpreF, diluent reconstituted, 0.5 mL, PF 3 completed Not Available [facility] 05/09/2025 14:34:53 zoster recombinant 5 completed Not Available [facility] 05/09/2025 14:34:53 COVID-19, mRNA, LNP-S, PF, 10 mcg/0.2 mL 5 completed Not Available [facility] 05/09/2025 14:34:53 zoster recombinant 5 completed Not Available [facility] 05/09/2025 14:34:53 Influenza, adjuvanted, trivalent, PF 4 completed CANDIDA bond, [facility] 04/27/2024 12:43:48 Past Encounters Encounter ID Performer Location Encounter Start Date Encounter Closed Date Diagnosis/Indication Diagnosis SNOMED-CT Code Diagnosis ICD10 Code Diagnosis IMO Codes Diagnosis Note [id number] PAIGE RIOS [facility] ([facility]) [address] [place] [address] 03/26/2025 14:02:21 03/26/2025 14:54:15 Swelling of right lower limb 490275557 M79.89 79956966 Nasal mucosa dry 9552205 2 J34.89 13480 Samples of [place] saline given to patient. Health Concerns Section Related Observation LastModified by Organization Detai ls LastModified Time None Recorded Concern Status LastModified by Organization Details LastModified Time None Recorded Payers Encounter Date Sequence Insurance Name Policy Number Policy Kaufman Covered Member ID Kaufman Member ID Guarantor Name 03/26/2025 2 [facility] [employer] D [employer] F (MEDICARE SUPPLEMENT) [id number] Micha Ko Scot [id number] Christianne Ellison 03/26/2025 1 [place] - MEDICARE-RA[address] [facility] (MEDICARE) Christianne Ellison [id number] Christianne Ellison Notes Date Note Type Note Provider Name and Address Organization Details Recorded Time 03/26/2025 text/html EdemaReported by PatientHPIFor quality, patient reportspainful. For context, patient reportsprior vein harvestandprior bypass surgery. For location, patient reportsrle. For severity, patient reportsmoderate. For duration, patient reportsconstant. For onset/timing, patient reportsstarted 7 years ago. ELLEN ROSAS, PAIGE [address] [place], [address], [facility] 03/26/2025 14:47:24 OBGyn Episode No OBEpisode recorded.
--- OUTSIDE RECORDS SUMMARY | 2025-06-19 17:58 | XMS_ITS | Continuity of Care Document ---
Author Organization [facility] Gibson Meier, [facility] ([facility]) Address [address] [place] [address] Care Team Providers Care Test Desk Trouble Locator Name Role Phone KALEB MERRITT Primary Care Provider [phone] Assessment No assessment recorded. Plan of Treatment Reminders Order Date Submit Date Provider Last Modified By Organization Details Last Modified Time Details Appointments OFFICE VISIT 15 2025 02:00P M Kaleb Merritt MD Not available Not available Not available Lab None recorded . Referral None recorded . Procedures None recorded . Surgeries None recorded . Imaging None recorded . Medication Orders None recorded . Patient TargetsNo targets recorded. Patient InstructionsNo instructions recorded. Reason for Referral None Reported. Results Created Date Observation Date Name Description Value Unit Range Abnormal Flag Note LastModifiedBy Organization Detail LastModifiedTime 04/12/2004/12/2025 US, williams xbaldo s, lower extre mity, compl ete No observ ation record ed. [facility] [place] [address] [place], [address], 04/18/2025 15:08:57 05/10/2005/09/2025 , lower extre mity, nonva scula r No observ ation record ed. [facility] [place] [address] [place], [address], 05/20/2025 11:01:32 Result Notes None recorded. Problems Name Problem SNOMED Code Status Onset Date Resolution Date Notes Provider Name and Address Organization Details Recorded Time Hypercholes terolemia 21145130 Active 2022 YAIMA bond [place] [facility] 5 13:02:13 Synovial cyst of left knee 0474992525617 02 Active 2022 YAIMA SYED [facility] 5 13:02:13 Essential hypertensio n 67289661 Active 2023 Kaleb Merritt MD [address] [place] [address], [address], [facility] 5 10:38:35 Hyperlipide obey 47114297 Active 2023 YAIMA SYED [facility] 5 13:02:13 Carotid artery stenosis 86268665 Active 2023 YAIMA SYED [facility] 5 13:02:13 Basal cell carcinoma of skin 701584824 Active 2023 YAIMA SYED [facility] 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 5 13:02:13 Iliotibial band friction syndrome of right knee 9738126619872 04 Active 2023 YAIMA SYED [facility] 5 13:02:13 Moderate aortic valve stenosis 703501561 Active 2023 YAIMA SYED [facility] 5 13:02:13 Atrial fibrillatio n 32076339 Active 2023 YAIMA SYED [facility] 5 13:02:13 Osteoarthri tis 524419333 Active 2024 YAIMA SYED [facility] 13:02:13 Transient ischemia 23504704 Active 2024 Kaleb Merritt MD [address] [place] [address], [address] [place] [address] 5, [facility] 10:27:51 Intermitten t vertigo 912825044 Active 2024 Kaleb Merritt MD [address] [place] [address], [address] [place] [address] 5, [facility] 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 10:28:36 Expressive dysphasia 074368629 Active 2024 Kaleb Merritt MD [address] [place] [address], [address], [facility] 10:33:47 Localized swelling of right lower limb 5510107791379 9101 Active 2024 Kaleb Merritt MD [address] [place] [address], [address], [facility] 16:04:37 Problem Notes None recorded. Procedures Surgical History Date Name Laterality Status Provider Name and Address Organization Details Recorded Time 04/12/20 25 Doppler ultrasonography of vein completed JERROD YO [facility] 04/18/2025 15:08:32 03/15/20 24 Joint Inj Kenalog- Shoulder, Hip, Knee completed Emanuel Marquez MD [address] [place] [address], [address], [facility] 03/16/2024 10:07:44 procedure [facility] heart [facility] 10:50:51 Knee arthroscopy dx [facility]24 10:51:17 carotid [facility]rectomy [facility]/12[facility]2024 09:30:34 [facility] 09:31:23 Imaging Results None recorded. [...] 9; Recorded 11/19/19 4:18PM by Toma Armenta (Authorlatricia escamilla through Kaleb Merritt MD), Office Visit; [...] Updated DateTime 5 154.94 cm 24.4 kg/m2 90072.4 2 g 98 % 64 /min 124/78 mm[Hg] YAIMA SYED [facility] 5 15:21:51 Social History Question Answer Notes LastModified by [employer] Details LastModified Time Tobacco Smoking Status Never Smoker CANDIDA bond [facility] 02/14/2023 16:45:44 What Was The Date Of Your Most Recent Tobacco Screening? 06/19/2025 [email or web address] Information not available 06/19/2025 Sex: Unknown Functional Status Question Answer Note LastModified by [email or web address] Details LastModified Time Do you use any [...] N Breast Cancer N Blood Transfusion N Depression N Hypothyroidism N Lung Disease [...] preservative free, adsorbed 6 completed Not Available [facility] 02/05/2023 02:39:27 Influenza, split virus, trivalent, preservative 1 completed Not Available [facility] 02/05/2023 02:39:28 Influenza, split virus, trivalent, preservative 4 completed Not Available [facility] 02/05/2023 02:39:28 Influenza, split virus, trivalent, preservative 3 completed Not Available [facility] 02/05/2023 02:39:29 Influenza, split virus, trivalent, preservative 8 completed Not Available [facility] 02/05/2023 02:39:29 pneumococcal polysaccharide PPV23 8 completed Not Available [facility] 02/05/2023 02:39:29 Influenza, adjuvanted, trivalent, PF 5 [facility] 05/01/2025 17:22:45 COVID-19, mRNA, LNP-S, PF, 30 mcg/0.3 mL dose [address] [facility] 09/12/2023 14:40:05 COVID-19, mRNA, LNP-S, PF, 30 mcg/0.3 mL dose [address] [facility] 09/12/2023 14:40:05 COVID-19, mRNA, LNP-S, PF, 30 mcg/0.3 mL dose, lizzie-sucrose 2 completed [facility] 09/12/2023 14:40:05 COVID-19, mRNA, LNP-S, bivalent, PF, 30 mcg/0.3 mL dose 2 completed [facility] 09/12/2023 14:40:05 Pneumococcal conjugate PCV 13 6 completed [facility] 09/12/2023 14:40:05 Influenza, high-dose, quadrivalent, PF 3 completed [facility] 11/14/2023 10:08:56 COVID-19, mRNA, LNP-S, PF, lizzie-sucrose, 30 mcg/0.3 mL 3 completed Narcisa Neves [facility] 11/14/2023 10:08:56 RSV, bivalent, protein subunit RSVpreF, diluent reconstituted, 0.5 mL, PF 3 completed YAIMA SYED [facility] 01/18/2024 14:43:52 COVID-19, mRNA, LNP-S, PF, 50 mcg/0.5 mL 4 completed Not Available [facility] 05/09/2025 14:34:53 RSV, bivalent, protein subunit RSVpreF, diluent reconstituted, 0.5 mL, PF 3 completed Not Available [facility] 05/09/2025 14:34:53 zoster recombinant 5 completed Not Available [facility] 05/09/2025 14:34:53 COVID-19, mRNA, LNP-S, PF, 10 mcg/0.2 mL 5 completed Not Available [facility] 05/09/2025 14:34:53 zoster recombinant 5 completed Not Available [facility] 05/09/2025 14:34:53 Influenza, adjuvanted, trivalent, PF 4 completed CANDIDA PLEITEZ [facility], .LTanoTano 04/27/2024 12:43:48 Past Encounters Encounter ID Performer Location Encounter Start Date Encounter Closed Date Diagnosis/Indication Diagnosis SNOMED-CT Code Diagnosis ICD10 Code Diagnosis IMO Codes Diagnosis Note [id number] BERNARDO VALDES APRN [facility] ([facility]) [address] [place] [address] 04/18/2025 16:03:50 04/18/2025 16:45:43 Open wound of right upper limb 8000774863 7108 S41.111A [id number] Kaleb Merritt MD [facility] ([facility]) [address] [place] [phone] 05/01/2025 14:58:21 05/01/2025 16:21:42 Carotid artery stenosis 63201532 I65.29 moderate. Essential hypertension 63256245 I10 93989 continue present meds as it was on 2.5mg at home. Moderate a ortic valve stenosis 488728667 I35.0 Stable. Moderate to severe. Atrial fibrillation 4943 6004 I48.91 regular rhythm today. Osteoarthritis 760314443 M19.90 bilateral knee pain. Followed by orthopedic s. Localized swelling of right lower limb 5350231025 2949555 R22.41 [id number] will order regular ultrasound of soft tissue of medial right leg. Health Concerns Section Related Observation LastModified by Organization Detai ls LastModified Time None Recorded Concern Status LastModified by Organization Details LastModified Time None Recorded Payers Encounter Date Sequence Insurance Name Policy Number Policy Kaufman Covered Member ID Kaufman Member ID Guarantor Name 05/01/2025 2 [facility] [employer] PLAN D AND F (MEDICARE SUPPLEMENT) [id number] Micha Ko Scot [id number] Christianne Ellison 05/01/2025 1 [facility] [facility] (MEDICARE) Christianne Elliosn [id number] Christianne Ellison Notes Date Note Type Note Provider Name and Address Organization Details Recorded Time 05/01/2025 text/html Hypertension IM/FMReported by PatientHPIFor quality, patient reportshere for check-up. For onset/timing, patient reportsgradual onset. For associated symptoms, patient reportsno shortness of breath,no palpitations, andno chest pain. HyperlipidemiaReport ed by PatientHPIFor duration, patient reportschronic. For risk factors, patient reportshypertension. For adherence to treatment plan, patient reportstakes medications as prescribed. Has a spot on her right leg that she describes that is soft and swelling. She saw Jo for this too and US was ordered. Kaleb Merritt MD [address] [place] [address], [phone], [facility], [place] 05/01/2025 16:11:07 OBGyn Episode No OBEpisode recorded.
--- OUTSIDE RECORDS SUMMARY | 2025-06-19 17:59 | XMS_ITS | Continuity of Care Document ---
Author Organization [facility] [place], [facility] ([facility]) Address [address] [place] [address] Care Team Providers Care Project Inspector Name Role Phone KALEB MERRITT Primary Care [...] US, lower extremity , nonvascul ar - 13398 Rt leg 2024 025 [facility] Imaging Orders, [address] [place], [address], 05/10/2025 21:33:24 Medication Orders None recorded. Patient TargetsNo targets recorded. Patient InstructionsNo instructions recorded. Reason for Referral None Reported. Results Created Date Observation Date Name Description Value Unit Range Abnormal Flag Note LastModifiedBy Organization Detail LastModifiedTime 04/12/2004/12/2025 US, williams x, baldo s, lower extre mity, compl ete No observ ation record ed. [facility] [address] [place], [address], 04/18/2025 15:08:57 05/10/2005/09/2025 US, lower extre mity, nonva scula r No observ ation record ed. [facility] [address] [place], [address], 05/20/2025 11:01:32 Result Notes None recorded. Problems Name Problem SNOMED Code Status Onset Date Resolution Date Notes Provider Name and Address Organization Details Recorded Time Hypercholes terolemia 84338388 Active 2022 YAIMA SYED [facility] 5 13:02:13 Synovial cyst of left knee 4560977423151 02 Active 2022 YAIMA SYED [facility] 5 13:02:13 Essential hypertensio n 82888506 Active 2023 Kaleb Merritt MD [address] [place] [address], [phone], [facility] 5 10:38:35 Hyperlipide obey 85639757 Active 2023 YAIMA SYED [facility] 5 13:02:13 Carotid artery stenosis 91862922 Active 2023 YAIMA SYED [facility] 5 13:02:13 Basal cell carcinoma of skin 002978198 Active 2023 YAIMA SYED [facility] 5 13:02:13 Iliotibial band friction syndrome of left knee 3318908214666 02 Active 2023 YAIMA SYED [facility] 5 13:02:13 Iliotibial band friction syndrome of right knee 6735145749521 04 Active 2023 YAIMA SYED [facility] 5 13:02:13 Moderate aortic valve stenosis 717057238 Active 2023 YAIMA SAMIA [facility] 5 13:02:13 Atrial fibrillatio n 72680042 Active 2023 YAIMA MCLEODABDIAS bond [facility] 5 13:02:13 Osteoarthri tis 323072067 Active 2024 YAIMA bond, [facility] 5 13:02:13 Transient ischemia 01261324 Active 2024 Kaleb Merritt MD [address] [place] [address], [phone], [facility] 10:27:51 Intermitten t vertigo 905901483 Active 2024 Kaleb Merritt MD [address] [place] [address], [phone], [facility] 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 10:28:36 Expressive dysphasia 990324368 Active 2024 Kaleb Merritt MD [address] [place] [address], [phone], [facility] 10:33:47 Localized swelling of right lower limb 1288646575391 9101 Active 2024 Kaleb Merritt MD [address] [place] [address], [phone], [facility] 16:04:37 Problem Notes None recorded. Procedures Surgical History Date Name Laterality Status Provider Name and Address Organization Details Recorded Time 04/12/20 25 Doppler ultrasonography of vein completed JERROD YO [facility] 04/18/2025 15:08:32 03/15/20 24 Joint Inj Kenalog- Shoulder, Hip, Knee completed Emanuel Marquez MD [address] [place], [address], [facility] [place] 03/16/2024 10:07:44 [facility] 10:50:51 [facility] 10:51:17 [facility] 09:30:34 [facility] 09:31:23 Imaging Results None recorded. Procedure [...] e daily 02/14 completed 0; Recorded 07/27/19 23 12:59PM by Yaima Syed, Office Visit; Not Available Not Available Not Available furosemid e daily, as needed 02/14 completed 0; Recorded 07/27/19 23 12:59PM by Yaima Syed, Office Visit; Not Available Not Available Not Available Vitamin D daily active Not Available Not Khadra ilable Not Available CoQ10 daily active Not Available Not Availa ble Not Available Potassium Chloride ER daily 02/14 completed vo RM/CC; 9; Recorded 11/19/19 20 4:18PM by Toma Armenta (i francine through Kaleb Merritt MD), Office Visit; Refill Quantity : 30; Capsule; Not Available Not Available Not Available Crestor daily 02/14 completed RM/CC; 9; Recorded 11/19/19 20 4:18PM by Toma Armenta (Jean Claude escamilla [...] Available Not Available No t Available Vitals None Recorded Social History Question Answer Notes LastModified by Organizat ion Details LastModified Time Tobacco Smoking Status [facility] 16:45:44 What Was The Date Of [...] Cancer N Blood Transfusion N Depression N COPD N Lung Disease N Hypothyroidism N Developmental or Behavioral Disorders N Defects or Inherited Disease N Breast Problem N Difficulty Swallowing N [...] adsorbed 6 completed Not Available [facility] 02/05/2023 02:39:27 Influenza, split virus, trivalent, preservative 1 completed Not Available [facility] 02/05/2023 02:39:28 Influenza, split virus, trivalent, preservative 4 completed Not Available [facility] 02/05/2023 02:39:28 Influenza, split virus, trivalent, preservative 3 completed Not Available [facility] 02/05/2023 02:39:29 Influenza, split virus, trivalent, preservative 8 completed Not Available [facility] 02/05/2023 02:39:29 pneumococcal polysaccharide PPV23 8 completed Not Available [facility] 02/05/2023 02:39:29 Influenza, adjuvanted, trivalent, PF 5 completed CANDIDA bond [facility] 05/01/2025 17:22:45 COVID-19, mRNA, LNP-S, PF, 30 mcg/0.3 mL dose 1 completed YAIMA bond [facility] 09/12/2023 14:40:05 COVID-19, mRNA, LNP-S, PF, 30 mcg/0.3 mL dose 1 completed YAIMA bond [facility] 09/12/2023 14:40:05 COVID-19, mRNA, LNP-S, PF, 30 mcg/0.3 mL dose, lizzie-sucrose 2 completed YAIMA bond [facility] 09/12/2023 14:40:05 COVID-19, mRNA, LNP-S, bivalent, PF, 30 mcg/0.3 mL dose 2 [facility]/12[facility] 14:40:05 Pneumococcal conjugate PCV 13 6 completed YAIMA SYED [facility] 09/12/2023 14:40:05 Influenza, high-dose, quadrivalent, PF 3 completed Narcisa Neves [facility] 11/14/2023 10:08:56 COVID-19, mRNA, LNP-S, PF, lizzie-sucrose, 30 mcg/0.3 mL 3 completed Narcisakeren Neves [facility] 11/14/2023 10:08:56 RSV, bivalent, protein subunit RSVpreF, diluent reconstituted, 0.5 mL, PF 3 completed YAIMA SAMIA [facility] 01/18/2024 14:43:52 COVID-19, mRNA, LNP-S, PF, 50 mcg/0.5 mL 4 completed Not Available [facility] 05/09/2025 14:34:53 RSV, bivalent, protein subunit RSVpreF, diluent reconstituted, 0.5 mL, PF 3 completed Not Available [facility] 05/09/2025 14:34:53 zoster recombinant 5 completed Not Available [facility] 05/09/2025 14:34:53 COVID-19, mRNA, LNP-S, PF, 10 mcg/0.2 mL 5 completed Not Available [facility] 05/09/2025 14:34:53 zoster recombinant 5 completed Not Available [facility] 05/09/2025 14:34:53 Influenza, adjuvanted, trivalent, PF 4 completed CANDIDA PLEITEZ [facility] [place] 04/27/2024 12:43:48 Past Encounters Encounter ID Performer Location Encounter Start Date Encounter Closed Date Diagnosis/Indication Diagnosis SNOMED-CT Code Diagnosis ICD10 Code Diagnosis IMO Codes Diagnosis Note [id number] BERNARDOAyah VALDES APRN [facility] ([facility]) [address] [place] [phone] 04/18/2025 16:03:50 04/18/2025 16:45:43 Open wound of right upper limb [id number] 7108 S41.111A [id number] Kaleb Merritt MD [facility] ([facility]) [address] [place] [phone] 05/01/2025 14:58:21 05/01/2025 16:21:42 Carotid artery stenosis 85686183 I65.29 moderate. Essential hypertension 23403696 I10 22340 continue present meds as it was on 2.5mg at home. Moderate a ortic valve stenosis 305413215 I35.0 Stable. Moderate to severe. Atrial fibrillation 4943 6004 I48.91 regular rhythm today. Osteoarthritis 838603291 M19.90 bilateral knee pain. Followed by orthopedic s. Localized swelling of right lower limb 8179790184 6672547 R22.41 [id number] will order regular ultrasound of soft tissue of medial right leg. [id number] Kaleb Merritt MD [facility] ([facility]) [address] [place] [phone] 5 05/09/2025 14:34:44 05/09/2025 15:45:34 Localized swelling of right lower limb 6224704199 5663448 R22.41 [id number] will order regular ultrasound of soft tissue of medial right leg. Health Concerns Section Related Observation LastModified by Organization Detai ls LastModified Time None Recorded Concern Status LastModified by Organization Details LastModified Time None Recorded Payers Encounter Date Sequence Insurance Name Policy Number Policy Kaufman Covered Member ID Kaufman Member ID Guarantor Name 05/09/2025 2 [facility] [employer] PLAN D AND F (MEDICARE SUPPLEMENT) [id number] Mrs Micha Ellison [id number] Christianne Ellison 05/09/2025 1 [facility] - MEDICARE-[address] INTERMEDIATE BOARD (MEDICARE) Christianne Ellison [id number] Christianne Ellison OBGyn Episode No OBEpisode recorded.
== END 2025-06-19 15:55 | disposition home or self-care (01) ==
PROVIDERS: Emergency Provider Emergency Medicine; PCP Family Medicine
DX: S09.8XXA Other specified injuries of head, initial encounter (principal); S00.83XA Contusion of other part of head, initial encounter; Z79.82 Long term (current) use of aspirin; Z79.01 Long term (current) use of anticoagulants; E78.5 Hyperlipidemia, unspecified; I25.10 Atherosclerotic heart disease of native coronary artery without angina pectoris; I10 Essential (primary) hypertension; W01.0XXA Fall on same level from slipping, tripping and stumbling without subsequent striking against object, initial encounter
CPT/HCPCS: 70450; 70486; 72125; 99284